=== PATIENT | female | born 1940 | race Caucasian/White ===

== ENCOUNTER 2022-04-20 08:30 | Observation (INO) | payer MEDICARE, OTHER ==
[~2022-04-20] VITALS: Ht 167.7 cm; Wt 83.6 kg
--- NOTE | 2022-04-20 08:54 | ED Dyspnea ---
General Chief Complaint: Respiratory Problems Stated Complaint: SOB Nursing Triage Note: PT AMB TO RM 5 PT CO OF SOA X1 WEEK, PT STATES WAS SEEN BY DR LAST WEEK AND DID NOT GET ANY BETTER.PT DENIES C/P, PT VERY ANXIOUS. PT STATES HAS HAD SWOLLEN FEET FOR APPROX 48 HOURS Source of Information: Patient, Family Exam Limitations: No Limitations History of Present Illness Date Seen by Provider: Apr 20, 2022 Time Seen by Provider: 08:40 Initial Comments 81-year-old female presents to the emergency department today for difficulty breathing. She states she was seen at the [facility] clinic about a week ago and recommended to come to the emergency department. She declined doing so at that time according to her daughter. She states she has had progressively worsening shortness of breath since that time. Also endorses some bilateral lower extremity edema which is worsening. She denies any cardiac or pulmonary history. Tells me she does not take medicines for high blood pressure high cholesterol diabetes. She has had a mild nonproductive cough. She specifically denies any chest pains. She has no abdominal pain or changes in bowel or bladder habits. She did receive her COVID vaccinations and denies any fevers or chills. Allergies and Home Medications Allergies Coded Allergies: No Known Drug Allergies (Unverified , 04/20/22) Patient Home Medication List Home Medication List Reviewed: Yes Dextromethorphan Hb/Doxylamine (Vicks Nyquil Cough Liquid) 15 Mg-6.25 Mg/15 Ml Solution, 30 ML PO Q6H PRN for COUGH, (Reported) Entered as Reported by: SURESH LYNCH on 04/20/221557 Last Action: Reviewed Ibuprofen (Advil) 200 Mg Capsule, 600-800 MG PO Q8H PRN for PAIN-MILD (1-4), (Reported) Entered as Reported by: SURESH LYNCH on 04/20/221557 Last Action: Reviewed [Balance Of Nature] , 1 EA PO DAILY, (Reported) Entered as Reported by: SURESH LYNCH on 04/20/221557 Last Action: Reviewed Discontinued Medications D-Methorphan/PE/Acetaminophen (Vicks Dayquil Liquid) 10 Mg-5 Mg-325 Mg/15 Ml Liquid, 236 ML PO, (Reported) Discontinued Reason: Duplicate Order Entered as Reported by: SURESH LYNCH on 04/20/221557 Last Action: Discontinued Dextromethorphan HBr (Vicks Dayquil Cough) 5 Mg/5 Ml Syrup, 5 MG PO, (Reported) Discontinued Reason: Duplicate Order Entered as Reported by: SURESH LYNCH on 04/20/221557 Last Action: Discontinued Review of Systems Review of Systems Constitutional: no symptoms reported EENTM: no symptoms reported Respiratory: cough, short of breath Cardiovascular: no symptoms reported Gastrointestinal: no symptoms reported Genitourinary: no symptoms reported Musculoskeletal: no symptoms reported Skin: no symptoms reported Psychiatric/Neurological: No Symptoms Reported Endocrine: No Symptoms Reported Hematologic/Lymphatic: No Symptoms Reported Past Lppazue-Vovzcq-Nshomh Hx Patient Social History Tobacco Use?: No Substance use?: No Alcohol Use?: Yes Alcohol type: Wine Alcohol Frequency: Rarely Pt feels they are or have been: No Immunizations Up To Date Influenza Vaccine Up-to-Date: No; Not Current First/Initial COVID19 Vaccinat: 2020 Second COVID19 Vaccination Jonathan: 2020 Past Medical History Surgery/Hospitalization HX: NONE, NO MED HX Family Medical History Reviewed Nursing Family Hx No Pertinent Family Hx Physical Exam Vital Signs Vital Signs - First Documented 04/20/22 08:30 Temp 35.4 Pulse 122 Resp 24 B/P (MAP) 160/105 (123) Pulse Ox 97 O2 Delivery Room Air Capillary Refill : Less Than 3 Seconds Height, Weight, BMI Height: '" Weight: lbs. oz. kg; 23.00 BMI Method: General Appearance: No Apparent Distress, Anxious HEENT: PERRL/EOMI, Normal ENT Inspection, Pharynx Normal Neck: Full Range of Motion, Normal Inspection, Non Tender, Supple Respiratory: Chest Non Tender, No Accessory Muscle Use, No Respiratory Distress, Other (Slight expiratory wheezing bilaterally.) Cardiovascular: No Murmur, Normal Peripheral Pulses, Tachycardia Gastrointestinal: Normal Bowel Sounds, No Organomegaly, No Pulsatile Mass, Non Tender, Soft Extremity: Normal Capillary Refill, Normal Range of Motion, No Calf Tenderness, Pedal Edema (2+ pitting edema bilateral lower extremities) Neurologic/Psychiatric: Alert, Oriented x3, No Motor/Sensory Deficits Skin: Normal Color, Warm/Dry Lymphatic: No Adenopathy Focused Exam Lactate Level 04/20/22 08:55: Lactic Acid Level 3.05*H Lactic Acid Level Laboratory Tests Test 04/20/22 08:55 Lactic Acid Level 3.05 MMOL/L (0.50-2.00) *H Progress/Results/Core Measures Results/Orders Lab Results Laboratory Tests Test 04/20/22 08:46 04/20/22 08:55 Range/Units White Blood Count 10.1 4.3-11.0 10^3/uL Red Blood Count 3.89 3.80-5.11 10^6/uL Hemoglobin 12.4 11.5-16.0 g/dL Hematocrit 39 35-52 % Mean Corpuscular Volume 100 H 80-99 fL Mean Corpuscular Hemoglobin 32 25-34 pg Mean Corpuscular Hemoglobin Concent 32 32-36 g/dL Red Cell Distribution Width 13.5 10.0-14.5 % Platelet Count 452 H 130-400 10^3/uL Mean Platelet Volume 9.8 9.0-12.2 fL Immature Granulocyte % (Auto) 0 % Neutrophils (%) (Auto) 62 42-75 % Lymphocytes (%) (Auto) 28 12-44 % Monocytes (%) (Auto) 6 0-12 % Eosinophils (%) (Auto) 3 0-10 % Basophils (%) (Auto) 1 0-10 % Neutrophils # (Auto) 6.3 1.8-7.8 10^3/uL Lymphocytes # (Auto) 2.8 1.0-4.0 10^3/uL Monocytes # (Auto) 0.6 0.0-1.0 10^3/uL Eosinophils # (Auto) 0.3 0.0-0.3 10^3/uL Basophils # (Auto) 0.1 0.0-0.1 10^3/uL Immature Granulocyte # (Auto) 0.0 0.0-0.1 10^3/uL Sodium Level 138 135-145 MMOL/L Potassium Level 3.8 3.6-5.0 MMOL/L Chloride Level 104 98-107 MMOL/L Carbon Dioxide Level 19 L 21-32 MMOL/L Anion Gap 15 H 5-14 MMOL/L Blood Urea Nitrogen 16 7-18 MG/DL Creatinine 1.08 0.60-1.30 MG/DL Estimat Glomerular Filtration Rate 51 BUN/Creatinine Ratio 15 Glucose Level 147 H 70-105 MG/DL Calcium Level 8.7 8.5-10.1 MG/DL Corrected Calcium 8.8 8.5-10.1 MG/DL Total Bilirubin 0.7 0.1-1.0 MG/DL Aspartate Amino Transf (AST/SGOT) 18 5-34 U/L Alanine Aminotransferase (ALT/SGPT) 16 0-55 U/L Alkaline Phosphatase 75 40-136 U/L Troponin I 0.034 H <0.028 NG/ML B-Type Natriuretic Peptide 2160.0 H <100.0 PG/ML Total Protein 7.8 6.4-8.2 GM/DL Albumin 3.9 3.2-4.5 GM/DL Procalcitonin 0.04 <0.10 NG/ML Influenza Type A (RT-PCR) Not Detected Not Detecte Influenza Type B (RT-PCR) Not Detected Not Detecte SARS-CoV-2 RNA (RT-PCR) Not Detected Not Detecte Lactic Acid Level 3.05 *H 0.50-2.00 MMOL/L Micro Results Microbiology 04/20/22 Blood Culture - Preliminary, Resulted No growth 04/20/22 Blood Culture - Preliminary, Resulted No growth My Orders Orders - EMILY SERRA DO Ekg-Prn For Chest Pain Or Rhyt (04/20/22 08:37) Comprehensive Metabolic Panel (04/20/22 08:49) Troponin I [place]son (04/20/22 08:49) Bnp [place] (04/20/22 08:49) Procalcitonin (Pct) (04/20/22 08:49) Lactic Acid Analyzer (04/20/22 08:49) Cbc With Automated Diff (04/20/22 08:49) Blood Culture (04/20/22 08:49) Chest 1 View, Ap/Pa Only (04/20/22 08:49) Ed Iv/Invasive Line Start (04/20/22 08:49) Covid 19 Inhouse Test (04/20/22 08:50) Influenza A And B By Pcr (04/20/22 08:50) Albuterol/Ipra Inhalation Soln (Duoneb I (04/20/22 09:15) Methylprednisolone Sod Succ (Solu-Medrol (04/20/22 09:15) Svn Small Volume Nebulizer (04/20/22 09:12) Azithromycin Injection (Zithromax Inject (04/20/22 09:30) Ceftriaxone 1 Gm Pre-Mix (Rocephin 1 Gm (04/20/22 09:30) Ed Admission (Communication) (04/20/22 10:22) Medications Given in ED Vital Signs/I&O 04/20/22 04/20/22 08:30 09:25 Temp 35.4 Pulse 122 Resp 24 B/P (MAP) 160/105 (123) Pulse Ox 97 96 O2 Delivery Room Air Room Air Blood Pressure Mean: 123 EKG : Comment Sinus tachycardia with rate of 117 bpm. Intervals. Left axis deviation. Right bundle branch block. No ST or T wave abnormalities. No ectopy. No STEMI. Critical Care Note Critical Care Total Time (minutes) 60 Departure Communication (Admissions) Patient is hemodynamically stable. She remains tachycardic during her stay but is normal to slightly hypertensive. Oxygen saturations are stable. She has what appears to be patchy infiltrate on the right side and some diffuse pulmonary edema bilaterally. I will give her IV Lasix, Zithromax and Rocephin to cover for kidney acquired pneumonia. Her BNP is significantly elevated, Pro- Ollie and white blood cell count are normal so I am leaning more towards edema at this time however her lactic acid is 3.04. When she is volume overloaded so I have given her any fluids. Her troponin is slightly elevated and she has left bundle branch block on her EKG. There is no EKG available for comparison at this time. We will go ahead and admit her to the hospital, Dr. Funes graciously excepts admission. I spoke with Dr. Solano who recommends IV Lasix twice daily, daily aspirin and Lovenox for DVT prophylaxis protocol. The patient is reluctant but agreeable to admission at this time Impression Primary Impression: Peripheral edema Additional Impressions: Elevated troponin I level Pulmonary edema Qualified Codes: J81.0 - Acute pulmonary edema Wheezing Disposition: ADMITTED INPATIENT Condition: Stable Admissions Decision to Admit Reason: Admit from ER (General) Departure-Patient Inst. Referrals: SURESH PATRICK DO (PCP/Family) Primary Care Physician EMILY SERRA DO Apr 20, 2022 08:54
[2022-04-20 09:02] LABS: ALBUMIN 3.9 GM/DL (3.2-4.5); BASOPHILS # (AUTO) 0.1 10^3/uL (0.0-0.1); BASOPHILS % (AUTO) 1 % (0-10); EOSINOPHILS # (AUTO) 0.3 10^3/uL (0.0-0.3); EOSINOPHILS % (AUTO) 3 % (0-10); HEMATOCRIT 39 % (35-52); HEMOGLOBIN 12.4 g/dL (11.5-16.0); LYMPHOCYTES # (AUTO) 2.8 10^3/uL (1.0-4.0); LYMPHOCYTES % (AUTO) 28 % (12-44); MEAN CORPUSCULAR HEMOGLOBIN 32 pg (25-34); MEAN CORPUSCULAR HGB CONC 32 g/dL (32-36); MEAN CORPUSCULAR VOLUME 100 fL (80-99); MEAN PLATELET VOLUME 9.8 fL (9.0-12.2); MONOCYTES # (AUTO) 0.6 10^3/uL (0.0-1.0); MONOCYTES % (AUTO) 6 % (0-12); NEUTROPHILS # (AUTO) 6.3 10^3/uL (1.8-7.8); NEUTROPHILS % (AUTO) 62 % (42-75); PLATELET COUNT 452 10^3/uL (130-400); WHITE BLOOD COUNT 10.1 10^3/uL (4.3-11.0)
[2022-04-20 09:03] LABS: POTASSIUM 3.8 MMOL/L (3.6-5.0)
[2022-04-20 09:04] LABS: CALCIUM 8.7 MG/DL (8.5-10.1)
[2022-04-20 09:05] LABS: TOTAL PROTEIN 7.8 GM/DL (6.4-8.2)
[2022-04-20 09:07] LABS: BILIRUBIN,TOTAL 0.7 MG/DL (0.1-1.0)
[2022-04-20 09:09] LABS: CREATININE SERUM 1.08 MG/DL (0.60-1.30)
--- NOTE | 2022-04-20 09:10 | Diagnostic Imaging Report ---
Indication: Shortness of breath x1 week Portable chest 8:50 AM There are some patchy alveolar infiltrates in both lungs. Heart appears mildly enlarged. Pulmonary vascularity is upper limits of normal. There are no effusions or pneumothoraces. IMPRESSION: Patchy alveolar infiltrates in lungs suspicious for pneumonia. There is mild underlying pulmonary venous congestion. Dictated by: Dictated on workstation # [id number]
[2022-04-20] MEDS ORDERED: methylPREDNISolone 125 MG (Solu-MEDROL) VIAL IVP ONE (09:15)
[2022-04-20] MEDS ORDERED: RT-ALBUTEROL/IPRATROPIUM 3 ML (DUONEB) VIAL INH ONE (09:15)
[2022-04-20] MEDS ORDERED: cefTRIAXone 1 GM PRE-MIX 50 ML IV ONE (09:30)
[2022-04-20] MEDS ORDERED: AZITHROMYCIN INJECTION 500 MG in NS (IVPB) 250 ML IV ONE (09:30)
[2022-04-20] MEDS ORDERED: FUROSEMIDE 40 MG/4 ML INJ (LASIX) IVP ONE (10:30)
[2022-04-20] MEDS ORDERED: ASPIRIN 81 MG CHEW (CHILDREN'S ASA) PO ONE (10:30)
[2022-04-20] MEDS ORDERED: ONDANSETRON 4 MG/2 ML (SDV) Z0FRAN IVP ONE (10:45)
[2022-04-20 11:30] VITALS: BP 130/83
[2022-04-20] MEDS ORDERED: ANTACID SUSP 30 ML UDC (MYLANTA) PO PRN (11:30)
[2022-04-20] MEDS ORDERED: morphine INJ 4 MG/ML 1 ML (VIAL/SYRINGE) IV PRN (11:30)
[2022-04-20] MEDS ORDERED: ACETAMINOPHEN 325 MG TABLET PO PRN (11:30)
[2022-04-20] MEDS ORDERED: LACTULOSE SYRUP 10GM/15ML (ENULOSE) 30ML UDC PO PRN (11:30)
[2022-04-20] MEDS ORDERED: MILK OF MAGNESIA 400 MG/5 ML 30 ML UDC PO PRN (11:30)
[2022-04-20] MEDS ORDERED: MELATONIN 3 MG TABLET PO PRN (11:30)
[2022-04-20] MEDS ORDERED: ONDANSETRON 4 MG/2 ML (SDV) Z0FRAN IV PRN (11:30)
[2022-04-20] MEDS ORDERED: diphenhydrAMINE 25 MG TAB (BENADRYL) PO PRN (11:30)
[2022-04-20] MEDS ORDERED: ENOXAPARIN 40 MG/0.4 ML (LOVENOX) SYR SC SCH (11:30)
[2022-04-20] MEDS ORDERED: polyethylene glycoL POWDER 17 GM (MIRALAX) PACK PO PRN (11:30)
[2022-04-20] MEDS ORDERED: diphenhydrAMINE 50 MG/ML INJ (BENADRYL) IVP PRN (11:30)
[2022-04-20] MEDS ORDERED: CALCIUM CARBONATE 500 MG (TUMS) TAB.CHEW PO PRN (11:30)
[2022-04-20] MEDS ORDERED: BISACODYL 10 MG SUPP (DULCOLAX) PR PRN (11:30)
[2022-04-20] MEDS ORDERED: AZITHROMYCIN INJECTION 500 MG in NS (IVPB) 250 ML IV NR (11:30)
[2022-04-20] MEDS ORDERED: ONDANSETRON 4 MG (ZOFRAN) ORAL DISSOLVE TAB PO PRN (11:30)
--- NOTE | 2022-04-20 11:31 | History & Physical-Hospitalist ---
[facility] 04/20/22 1131: History of Present Illness HPI/Chief Complaint Deann is an 81-year-old female who presented to the ED today with SOB for the past 1.5 weeks and worsening bilateral lower extremity edema for the past 2 days. Her SOB is aggravated by doing housework and is better with rest. Her SOB has not worsened but is not improving for the past 1.5 weeks which is why she decided to come to the ED today. Notes an unproductive cough for the past 2 weeks but otherwise feeling well without fevers. Her granddaughter was sick 2-3 weeks ago and then patient felt she caught the illness. She also complains of upper thoracic/lower cervical pain for the past year that comes and goes, gets to a 7.5/10 in severity. It does not radiate anywhere, specifically no pain in jaw or shoulders/arms. She is taking Aleve every day and using a heating pad to relieve the pain. She went to the [facility] on 04/13 for evaluation of SOB and back pain. They gave her muscle relaxers and ibuprofen and advised she get her "heart checked" at the ED. She did not go to the ED at that time. Notes she stopped taking the muscle relaxers as they made her feel bad and switched back to Aleve as ibuprofen was not working as well. Her only PMH is depression and anxiety that started after losing her daughter 3 years ago. There have been a lot of family stressors since. She is not currently taking any medications for this as she states she doesn't like "how they make her feel." She is accompanied by her granddaughter and great-granddaughter. 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 Today she reports feeling better than when she arrived and is still having intermittent SOB. She had nausea last night and today that was improved with Zofran today. Denies CP, vomiting, issues with urination. She has been more constipated recently though it was relieved by prune juice and she had a BM last night. Her granddaughter reports pt had "labored breathing" last night and this morning. CXR today with patchy alveolar infiltrates in lungs suspicious for pneumonia and mild underlying pulmonary venous congestion. EKG today with sinus tachycardia, left atrial enlargement, left bundle branch block. Labs notable for troponin of 0.034, BNP of 2160, lactic acid of 2.44, procalcitonin of 0.04. Source: patient, family (granddaughter) Exam Limitations: no limitations Date Seen 04/20/22 Time Seen by a Provider: 10:50 Attending Physician Wilmer Beach DO PCP Admitting Physician: Komal Mae DO Attending Physician: Komal Mae DO Referring Physician Date of Admission Apr 20, 2022 at 10:23 Home Medications & Allergies Home Medications Reviewed patient Home Medication Reconciliation performed by pharmacy medication reconciliations general service technician and/or nursing. Patients Allergies have been reviewed. 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) Tobacco Use?: No Substance use?: No Alcohol Use?: Yes Alcohol type: Wine Alcohol Frequency: Rarely Pt feels they are or have been: No Immunizations Up To Date First/Initial COVID19 Vaccinat: 2020 Second COVID19 Vaccination Jonathan: 2020 Current Status Advance Directives: No Communicates: Verbally Primary Language: [place] Citizen Preferred Spoken Language: [place] Citizen Is interpretation needed?: No Implanted or Applied Medical D: None Past Medical History Anxiety, Depression Family Medical History Reviewed Nursing Family Hx No Pertinent Family Hx, Other Conditions/Hx (father-alcoholism, brother- diabetes) Review of Systems Constitutional: No chills, No fever EENTM: no symptoms reported Respiratory: cough (nonproductive), dyspnea on exertion, short of breath Cardiovascular: No chest pain; edema (b/l lower extremities) Gastrointestinal: No abdominal pain; constipation, nausea; No vomiting Genitourinary: No decreased output, No dysuria, No hematuria Musculoskeletal: back pain (upper thoracic), neck pain Skin: No lesions, No rash Psychiatric/Neurological: Anxiety, Depressed All Other Systems Reviewed Negative Unless Noted: Yes (Negative excepted noted.) Physical Exam Physical Exam Vital Signs Vital Signs - First Documented 04/20/22 08:30 Temp 35.4 Pulse 122 Resp 24 B/P (MAP) 160/105 (123) Pulse Ox 97 O2 Delivery Room Air Capillary Refill : Less Than 3 Seconds Height, Weight, BMI Height: '" Weight: lbs. oz. kg; 23.00 BMI Method: General Appearance: WD/WN, Anxious HEENT: PERRL/EOMI, Pharynx Normal, Moist Mucous Membranes Neck: Full Range of Motion, Normal Inspection, Non Tender, Supple Respiratory: Chest Non Tender, Lungs Clear, Normal Breath Sounds, No Accessory Muscle Use, No Respiratory Distress Cardiovascular: Regular Rate, Rhythm, No Edema, No Gallop, No JVD, Normal Peripheral Pulses Gastrointestinal: Normal Bowel Sounds, Non Tender, Soft Back: Normal Inspection, No CVA Tenderness, No Vertebral Tenderness Extremity: Normal Capillary Refill, Normal Range of Motion, Non Tender, No Calf Tenderness, Pedal Edema, Swelling (2+ pitting edema of b/l lower extremities) Neurologic/Psychiatric: Alert, Oriented x3, No Motor/Sensory Deficits, Depressed Affect, Other (tearful) Skin: Normal Color, Warm/Dry Results Results/Procedures Labs Laboratory Tests 04/20/22 08:46 Patient resulted labs reviewed. Imaging Date of Exam:04/20/22 CHEST 1 VIEW, AP/PA ONLY Indication: Shortness of breath x1 week Portable chest 8:50 AM There are some patchy alveolar infiltrates in both lungs. Heart appears mildly enlarged. Pulmonary vascularity is upper limits of normal. There are no effusions or pneumothoraces. IMPRESSION: Patchy alveolar infiltrates in lungs suspicious for pneumonia. There is mild underlying pulmonary venous congestion. Assessment/Plan Admission Diagnosis Sepsis pneumonia Admission Status: Inpatient Order (span 2 midnights) Reason for Inpatient Admission: Need IV abx and lasix Assessment and Plan Assessment: Sepsis pneumonia New onset CHF Left bundle branch block Tachycardia b/l Lower extremity edema Elevated troponin Lactic acidosis Elevated BNP Mild thrombocytosis Depression Anxiety Plan: IV abx Lasix No IV fluids at this time given apparent volume overload status Cardiology appreciated Admit to med surg Supportive care Clinical Quality Measures AMI/AHF: ASA po Prior to arrival: KOMAL Dickinson DO 04/20/222044: History of Present Illness Source: patient Exam Limitations: clinical condition Physical Exam Physical Exam General Appearance: No Apparent Distress, Chronically ill Respiratory: Accessory Muscle Use, Decreased Breath Sounds Cardiovascular: Regular Rate, Rhythm, Tachycardia Assessment/Plan Admission Diagnosis New onset CHF due to systolic dysfunction suspicious for ischemic cardiomyopathy Pulmonary edema/volume overload Severe mitral valve regurgitation Acute resp failure Pulmonary HTN Bronchitis No evidence of sepsis Admission Status: Observation Diagnosis/Problems Diagnosis/Problems (1) Pulmonary edema (2) Peripheral edema (3) Elevated troponin I level (4) Wheezing Supervisory-Addendum Brief Verification & Attestation Participated in pt care: history, MDM, physical Personally performed: exam, history, MDM, supervision of care Care discussed with: Medical Student Procedures: n/a Results interpretation: Verified all documentation Verification and Attestation of Medical Student E/M Service A medical student performed and documented this service in my presence. I reviewed and verified all information documented by the medical student and made modifications to such information, when appropriate. I personally performed the physical exam and medical decision making. Komal Mae Apr 20, 2022,20:42 SHAHAB RICHARDSON Apr 20, 2022 11:31 KOMAL MAE DO Apr 20, 2022 20:45
--- NOTE | 2022-04-20 12:17 | Consultation-Cardiology ---
HPI-Cardiology Cardiology Consultation Date of Consultation 04/20/22 Date of Admission Time Seen by Provider: 12:12 Indication: Congestive heart failure HPI 81-year-old lady with no significant past cardiac history. Patient has been having increasing fatigue, shortness of breath and pedal edema which became more significant. Patient came into the emergency room and she was admitted due to congestive heart failure and pneumonia. Did not report any fever or chills but has been having increasing fatigue and loss of energy. Patient was seen at [facility] earlier last week for her increasing dyspnea and she was started on muscle relaxant. She has underlying anxiety and depression otherwise no known previous cardiac history. Home Medications & Allergies Allergies: Coded Allergies: No Known Drug Allergies (Unverified , 04/20/22) Home Medication List Reviewed: Yes LBP-Mvptvm-Mpezua Hx Patient Social History Marital Status: Employed/Student: retired Have you traveled recently?: No Alcohol Use?: Yes Past Medical History Discussed below Family Medical History Significant Family History: No Pertinent Family Hx Review of Systems-General Review of Systems Constitutional: no symptoms reported, malaise, weakness EENTM: no symptoms reported Respiratory: see HPI, cough, dyspnea on exertion; No hemoptysis, No orthopnea, No phlegm; short of breath; No stridor, No wheezing, No other Cardiovascular: see HPI; No chest pain; edema; No Hx of Intervention, No palpitations, No syncope, No vascular heart diseas, No other Gastrointestinal: no symptoms reported, see HPI Genitourinary: no symptoms reported, see HPI Musculoskeletal: see HPI, back pain, joint pain Skin: no symptoms reported, see HPI Psychiatric/Neurological: No Symptoms Reported, See HPI Reviewed Test Results Reviewed Test Results Lab Laboratory Tests Test 04/20/22 08:46 04/20/22 08:55 04/20/22 10:45 Range/Units White Blood Count 10.1 4.3-11.0 10^3/uL Red Blood Count 3.89 3.80-5.11 10^6/uL Hemoglobin 12.4 11.5-16.0 g/dL Hematocrit 39 35-52 % Mean Corpuscular Volume 100 H 80-99 fL Mean Corpuscular Hemoglobin 32 25-34 pg Mean Corpuscular Hemoglobin Concent 32 32-36 g/dL Red Cell Distribution Width 13.5 10.0-14.5 % Platelet Count 452 H 130-400 10^3/uL Mean Platelet Volume 9.8 9.0-12.2 fL Immature Granulocyte % (Auto) 0 % Neutrophils (%) (Auto) 62 42-75 % Lymphocytes (%) (Auto) 28 12-44 % Monocytes (%) (Auto) 6 0-12 % Eosinophils (%) (Auto) 3 0-10 % Basophils (%) (Auto) 1 0-10 % Neutrophils # (Auto) 6.3 1.8-7.8 10^3/uL Lymphocytes # (Auto) 2.8 1.0-4.0 10^3/uL Monocytes # (Auto) 0.6 0.0-1.0 10^3/uL Eosinophils # (Auto) 0.3 0.0-0.3 10^3/uL Basophils # (Auto) 0.1 0.0-0.1 10^3/uL Immature Granulocyte # (Auto) 0.0 0.0-0.1 10^3/uL Sodium Level 138 135-145 MMOL/L Potassium Level 3.8 3.6-5.0 MMOL/L Chloride Level 104 98-107 MMOL/L Carbon Dioxide Level 19 L 21-32 MMOL/L Anion Gap 15 H 5-14 MMOL/L Blood Urea Nitrogen 16 7-18 MG/DL Creatinine 1.08 0.60-1.30 MG/DL Estimat Glomerular Filtration Rate 51 BUN/Creatinine Ratio 15 Glucose Level 147 H 70-105 MG/DL Calcium Level 8.7 8.5-10.1 MG/DL Corrected Calcium 8.8 8.5-10.1 MG/DL Total Bilirubin 0.7 0.1-1.0 MG/DL Aspartate Amino Transf (AST/SGOT) 18 5-34 U/L Alanine Aminotransferase (ALT/SGPT) 16 0-55 U/L Alkaline Phosphatase 75 40-136 U/L Troponin I 0.034 H <0.028 NG/ML B-Type Natriuretic Peptide 2160.0 H <100.0 PG/ML Total Protein 7.8 6.4-8.2 GM/DL Albumin 3.9 3.2-4.5 GM/DL Procalcitonin 0.04 <0.10 NG/ML Influenza Type A (RT-PCR) Not Detected Not Detecte Influenza Type B (RT-PCR) Not Detected Not Detecte SARS-CoV-2 RNA (RT-PCR) Not Detected Not Detecte Lactic Acid Level 3.05 *H 2.44 *H 0.50-2.00 MMOL/L Physical Exam Physical Exam Vital Signs Vital Signs - First Documented 04/20/22 08:30 Temp 35.4 Pulse 122 Resp 24 B/P (MAP) 160/105 (123) Pulse Ox 97 O2 Delivery Room Air Capillary Refill : Less Than 3 Seconds Height, Weight, BMI Height: '" Weight: lbs. oz. kg; 23.00 BMI Method: General Appearance: No Apparent Distress, Anxious HEENT: PERRL/EOMI, Normal ENT Inspection, Pharynx Normal Neck: Full Range of Motion, Normal Inspection, Non Tender, Supple Respiratory: Chest Non Tender, No Accessory Muscle Use, No Respiratory Distress, Other (Slight expiratory wheezing bilaterally.) Cardiovascular: Normal Peripheral Pulses, Systolic Murmur (At the left sternal border), Gallop/S3, Tachycardia Gastrointestinal: Normal Bowel Sounds, No Organomegaly, No Pulsatile Mass, Non Tender, Soft Extremity: Normal Capillary Refill, Normal Range of Motion, No Calf Tenderness, Pedal Edema (2+ pitting edema bilateral lower extremities) Neurologic/Psychiatric: Alert, Oriented x3, No Motor/Sensory Deficits Skin: Normal Color, Warm/Dry Lymphatic: No Adenopathy A/P-Cardiology Admission Diagnosis Congestive heart failure, acute left ventricular systolic dysfunction, unknown etiology Pneumonia Lactic acidosis Hypertension Assessment/Plan Congestive heart failure, acute left ventricular systolic dysfunction, unknown etiology, dilated cardiomyopathy Patient was admitted and started on aggressive diuretics. Evaluate 2D echo Started on Lovenox. Work-up is in progress Pneumonia, started on antibiotics. Managed by medical team. We will continue to monitor Hypertension, monitor blood pressure Lactic acidosis. Probably secondary to sepsis and hypoxemia. Managed by medical team Degenerative joint disease. Clinical Quality Measures AMI/AHF: ASA po Prior to arrival: No SERENA FLORES MD Apr 20, 2022 12:17
[2022-04-20 12:38] VITALS: BP 130/83
[2022-04-20] MEDS ORDERED: RT-ALBUTEROL SULF 2.5 MG/3 ML PRE-MIX VIAL INH PRN (12:45)
[2022-04-20] MEDS: ENOXAPARIN 40 MG/0.4 ML (LOVENOX) SYR SQ SCH (13:39)
[2022-04-20 15:52] VITALS: BP 132/62
[2022-04-20] MEDS ORDERED: DEXT5SYR PO (15:58)
[2022-04-20] MEDS ORDERED: DEXT236S PO (15:58)
[2022-04-20] MEDS ORDERED: IBUP200C11 PO (15:58)
[2022-04-20] MEDS ORDERED: BALANCE OF NATURE PO (15:58)
[2022-04-20] MEDS ORDERED: D ME PO (15:58)
[2022-04-20] MEDS ORDERED: FUROSEMIDE 40 MG/4 ML INJ (LASIX) IVP SCH (17:00)
[2022-04-20] MEDS: FUROSEMIDE 40 MG/4 ML INJ (LASIX) IVP SCH (17:48)
[2022-04-20] MEDS: BENZONATATE 100 MG (TESSALON) CAPSULE PO PRN ×2 (17:51→21:11)
[2022-04-20 19:20] VITALS: BP 109/60
[2022-04-20] MEDS: SENNOSIDES 8.6 MG (SENOKOT) TAB PO SCH (19:37)
[2022-04-20] MEDS: DOCUSATE SODIUM 100 MG (COLACE) CAP PO SCH (19:37)
[2022-04-20] MEDS: ALPRAZolam 0.25 MG (XANAX) TAB PO PRN (22:55)
[2022-04-20 23:42] VITALS: BP 128/66
[2022-04-21] VITALS (8 sets, daily range): BP systolic 111–130; BP diastolic 59–86
[2022-04-21 05:27] LABS: BASOPHILS % (AUTO) 0 % (0-10); EOSINOPHILS % (AUTO) 0 % (0-10); HEMATOCRIT 34 % (35-52); HEMOGLOBIN 10.9 g/dL (11.5-16.0); LYMPHOCYTES # (AUTO) 1.1 10^3/uL (1.0-4.0); LYMPHOCYTES % (AUTO) 11 % (12-44); MEAN CORPUSCULAR HEMOGLOBIN 31 pg (25-34); MEAN CORPUSCULAR HGB CONC 32 g/dL (32-36); MEAN CORPUSCULAR VOLUME 97 fL (80-99); MEAN PLATELET VOLUME 9.8 fL (9.0-12.2); MONOCYTES # (AUTO) 0.2 10^3/uL (0.0-1.0); MONOCYTES % (AUTO) 3 % (0-12); NEUTROPHILS # (AUTO) 8.4 10^3/uL (1.8-7.8); NEUTROPHILS % (AUTO) 86 % (42-75); PLATELET COUNT 375 10^3/uL (130-400); WHITE BLOOD COUNT 9.7 10^3/uL (4.3-11.0)
[2022-04-21 05:42] LABS: ALBUMIN 3.6 GM/DL (3.2-4.5)
[2022-04-21 05:43] LABS: CALCIUM 8.5 MG/DL (8.5-10.1)
[2022-04-21 05:45] LABS: TOTAL PROTEIN 7.2 GM/DL (6.4-8.2)
[2022-04-21 05:47] LABS: BILIRUBIN,TOTAL 0.5 MG/DL (0.1-1.0)
[2022-04-21 05:48] LABS: CREATININE SERUM 1.14 MG/DL (0.60-1.30)
[2022-04-21] MEDS: FUROSEMIDE 40 MG/4 ML INJ (LASIX) IVP SCH ×2 (06:31→17:43)
[2022-04-21] MEDS: ASPIRIN 81 MG CHEW (CHILDREN'S ASA) PO SCH (08:29)
[2022-04-21] MEDS: PANTOPRAZOLE 40 MG (PROTONIX) TAB PO SCH (08:29)
[2022-04-21] MEDS: DOCUSATE SODIUM 100 MG (COLACE) CAP PO SCH ×2 (08:29→19:16)
[2022-04-21] MEDS: BENZONATATE 100 MG (TESSALON) CAPSULE PO PRN (08:29)
[2022-04-21] MEDS: SENNOSIDES 8.6 MG (SENOKOT) TAB PO SCH ×2 (08:29→19:16)
[2022-04-21] MEDS: AZITHROMYCIN 250 MG TAB (ZITHROMAX) PO SCH (08:29)
[2022-04-21] MEDS ORDERED: cefTRIAXone 1 GM PRE-MIX 50 ML IV SCH (09:00)
[2022-04-21] MEDS ORDERED: ASPIRIN E.C. 81 MG (ECOTRIN) TAB PO SCH (09:00)
--- NOTE | 2022-04-21 09:49 | Cardiology Progress Note ---
Subjective Date Seen by Provider: Apr 21, 2022 Time Seen by Provider: 08:10 Subjective/Events-last exam Patient sitting up in bed, tearful this morning. Reports has had ongoing depression since of her daughter 3 years ago. Denies any chest pain, reports dyspnea improving. Focused Exam Lactate Level 04/20/22 08:55: Lactic Acid Level 3.05*H 04/20/22 10:45: Lactic Acid Level 2.44*H Objective-Cardiology Exam Last Set of Vital Signs Vital Signs 04/21/22 15:25 Temp 36.4 Pulse 99 Resp 18 B/P (MAP) 123/63 (83) Pulse Ox 93 O2 Delivery Nasal Cannula O2 Flow Rate 2.00 I&O Intake and Output 04/21/22 00:00 Intake Total 1010 ml Balance 1010 ml Intake Oral 960 ml IV Total 50 ml # Voids 11 Daily Weight Change No General: Alert, Oriented X3, Cooperative HEENT: Atraumatic Lungs: Clear to Auscultation Heart: Regular Rate Abdomen: Soft Extremities: Other (BLE edema +1) Psych/Mental Status: Other (depressed, tearful ) Results Lab Laboratory Tests 04/21/22 05:12 A/P-Cardiology Admission Diagnosis Congestive heart failure, acute left ventricular systolic dysfunction, unknown etiology Pneumonia Lactic acidosis Hypertension Assessment/Plan Congestive heart failure, acute left ventricular systolic dysfunction, unknown etiology, dilated cardiomyopathy Patient was admitted and started on aggressive diuretics. 2D echo done showing diffuse hypokinesia, EF 30-35%. Mildly dilated LA, moderate to severe MR, severe TR, moderate pulmonary regurgitation, PA 50-55mmHg. Questionable Takotsubo cardiomyopathy Elevated troponin, started on Lovenox. Continue to diurese. I will add Entresto, beta jian. Will plan for cardiac catheterization in the morning Pneumonia, started on antibiotics. Managed by medical team. We will continue to monitor Hypertension, monitor blood pressure Lactic acidosis. Probably secondary to sepsis and hypoxemia. Managed by medical team Degenerative joint disease. Depression, patient reports she has been struggling with depression since the of her daughter 3 years ago. Reports has had worsening depression recently. Agreeable to starting medication. Will defer to medical services. Supervisory-Addendum Brief Supervisory Addendum Participated in pt care: history, MDM, physical Personally performed: exam, history, MDM Care discussed with: RINKU Results interpretation: Verified all documentation Notes: Patient was seen and evaluated with Roro, examination performed, management plan was discussed, agree with the current scribed note, I made few changes to the note using Italic font Patient was seen at bedside laying down comfortably, feeling better Discussed the management plan, will continue maximizing medical therapy and planning to proceed with cardiac catheterization possible PTCA Monitor blood pressure and lipids Monitor electrolytes RORO EDWARDS Apr 21, 2022 09:48 SERENA FLORES MD Apr 21, 2022 17:00
[2022-04-21] MEDS: ENOXAPARIN 40 MG/0.4 ML (LOVENOX) SYR SQ SCH (11:17)
--- NOTE | 2022-04-21 11:58 | Progress Note - Hospitalist ---
[facility] 04/21/22 1158: Subjective HPI/CC On Admission Date Seen by Provider: Apr 21, 2022 Time Seen by Provider: 10:15 Subjective/Events-last exam Deann is an 81-year-old female with new onset CHF due to systolic dysfunction suspicious for ischemic cardiomyopathy. Dr. Solano is seeing the patient and started her on aggressive diuretics and Lovenox as well as adding beta jian. 2D echo done showing diffuse hypokinesia, EF 30-35%. Mildly dilated LA, moderate to severe MR, severe TR, moderate pulmonary regurgitation, PA 50-55mmHg. He plans to do a stress test in the future. Her PCP is Dr. Wilmer Beach. Today she reports improvement in her SOB. Her neck/shoulder pain is at a 3/10 today and she requests Tylenol. Denies nausea, vomiting. She has been urinating more frequently as expected with diuretics. Reports having a cough productive of clear phlegm today. Denies fever, chils, sore throat. She is struggling with depression and is tearful during today's encounter. Review of Systems General: No Chills HEENT: No Head Aches, No Sore Throat Pulmonary: Dyspnea, Cough Cardiovascular: No: Chest Pain Gastrointestinal: No: Nausea, Vomiting Genitourinary: No Dysuria; Frequency Musculoskeletal: neck pain, shoulder pain Focused Exam Lactate Level 04/20/22 08:55: Lactic Acid Level 3.05*H 04/20/22 10:45: Lactic Acid Level 2.44*H Objective Exam Vital Signs Vital Signs Date Time Temp Pulse Resp B/P (MAP) Pulse Ox O2 Delivery O2 Flow Rate FiO2 04/21/22 11:16 37.1 58 18 111/59 (76) 93 Nasal Cannula 2.00 Capillary Refill : Less Than 3 Seconds General Appearance: WD/WN, Anxious, Other (tearful) HEENT: PERRL/EOMI, Pharynx Normal Respiratory: Chest Non Tender, Lungs Clear, Normal Breath Sounds, No Accessory Muscle Use, No Respiratory Distress Cardiovascular: Normal Peripheral Pulses, Tachycardia Gastrointestinal: Normal Bowel Sounds, Non Tender, Soft Extremity: Normal Capillary Refill, Normal Range of Motion, Non Tender, No Calf Tenderness, Pedal Edema, Swelling (1+ edema of b/l lower extremities) Neurologic/Psychiatric: Alert, Oriented x3, Depressed Affect Skin: Normal Color, Warm/Dry Results/Procedures Lab Laboratory Tests 04/21/22 05:12 Patient resulted labs reviewed. Assessment/Plan Assessment and Plan Assess & Plan/Chief Complaint Assessment: New onset CHF due to systolic dysfunction suspicious for ischemic cardiomyopathy Pulmonary edema/volume overload Severe mitral valve regurgitation Acute resp failure Pulmonary HTN Bronchitis No evidence of sepsis Depression Anxiety Plan: Antitussives and duoneb Lasix Cardiology appreciated, likely plan stress test No IV fluids at this time given volume overload status Supportive care Clinical Quality Measures AMI/AHF: ASA po Prior to arrival: KOMAL Dickinson DO 04/22/22 0503: Subjective Review of Systems Pulmonary: Dyspnea Objective Exam General Appearance: Anxious, Chronically ill Respiratory: Lungs Clear, Normal Breath Sounds Cardiovascular: Tachycardia Supervisory-Addendum Brief Verification & Attestation Participated in pt care: history, MDM, physical Personally performed: exam, history, MDM, supervision of care Care discussed with: Medical Student Procedures: n/a Results interpretation: Verified all documentation Verification and Attestation of Medical Student E/M Service A medical student performed and documented this service in my presence. I reviewed and verified all information documented by the medical student and made modifications to such information, when appropriate. I personally performed the physical exam and medical decision making. Komal Mae Apr 22, 2022,05:02 SHAHAB RICHARDSON Apr 21, 2022 11:58 KOMAL MAE DO Apr 22, 2022 05:03
[2022-04-22] VITALS (16 sets, daily range): BP systolic 89–122; BP diastolic 17–74
[2022-04-22] MEDS: ALPRAZolam 0.25 MG (XANAX) TAB PO PRN ×2 (00:37→14:32)
[2022-04-22] MEDS: FUROSEMIDE 40 MG/4 ML INJ (LASIX) IVP SCH (06:35)
[2022-04-22] MEDS ORDERED: LIDOCAINE 1% INJ 30 ML (XYLOCAINE) VIAL ONE (06:48)
[2022-04-22] MEDS ORDERED: HEParin (CATH LAB) 2,000 ML IV ONE (06:48)
[2022-04-22 06:56] LABS: BASOPHILS # (AUTO) 0.1 10^3/uL (0.0-0.1); BASOPHILS % (AUTO) 1 % (0-10); EOSINOPHILS # (AUTO) 0.3 10^3/uL (0.0-0.3); EOSINOPHILS % (AUTO) 2 % (0-10); HEMATOCRIT 36 % (35-52); HEMOGLOBIN 11.3 g/dL (11.5-16.0); LYMPHOCYTES # (AUTO) 3.9 10^3/uL (1.0-4.0); LYMPHOCYTES % (AUTO) 32 % (12-44); MEAN CORPUSCULAR HEMOGLOBIN 31 pg (25-34); MEAN CORPUSCULAR HGB CONC 31 g/dL (32-36); MEAN CORPUSCULAR VOLUME 99 fL (80-99); MEAN PLATELET VOLUME 9.9 fL (9.0-12.2); MONOCYTES # (AUTO) 0.6 10^3/uL (0.0-1.0); MONOCYTES % (AUTO) 5 % (0-12); NEUTROPHILS # (AUTO) 7.5 10^3/uL (1.8-7.8); NEUTROPHILS % (AUTO) 60 % (42-75); PLATELET COUNT 450 10^3/uL (130-400); WHITE BLOOD COUNT 12.5 10^3/uL (4.3-11.0)
[2022-04-22 07:32] LABS: ALBUMIN 3.5 GM/DL (3.2-4.5); BILIRUBIN,TOTAL 0.4 MG/DL (0.1-1.0); CALCIUM 8.5 MG/DL (8.5-10.1); CREATININE SERUM 1.35 MG/DL (0.60-1.30); POTASSIUM 3.9 MMOL/L (3.6-5.0); TOTAL PROTEIN 6.9 GM/DL (6.4-8.2)
[2022-04-22] MEDS ORDERED: fentaNYL INJ 100 MCG/2 ML AMP ONE (08:21)
[2022-04-22] MEDS ORDERED: MIDAZOLAM 5 MG/5 ML (VERSED) VIAL ONE (08:21)
[2022-04-22] MEDS ORDERED: HEParin 1000 UNIT/ML (10ML VIAL) FOR BOLUS ONE (08:25)
[2022-04-22] MEDS ORDERED: VERAPAMIL 5 MG/2 ML (CALAN) VIAL IV ONE (08:25)
[2022-04-22] MEDS ORDERED: NS IV 1000 ML 1,000 ML ONE (08:26)
[2022-04-22] MEDS ORDERED: NITRO DRIP 25000 MCG/D5W 250 ML IV ONE (08:26)
--- NOTE | 2022-04-22 08:40 | Cardiac Procedure Note-CS/ASA ---
Pre-Procedure Note Pre-Op Procedure Note Date of Available H&P: Apr 22, 2022 Date H&P Reviewed: Apr 22, 2022 Time H&P Reviewed: 08:00 History & Physical: H&P Reviewed, Patient Examed, No changes noted Pre-Operative Diagnosis: CHF Conscious Sedation Pre-Proced Time 08:00 ASA Score 3 For ASA 3 and 4: Consider anesthesia and medical clearance. Also, for patients with a history of failed moderate sedation consider anesthesia. Airway Lungs Heart ASA score ASA 1: a normal healthy patient ASA 2: a patient with a mild systemic disease (mid diabetes, controlled hypertension, obesity ASA 3: a patient with a severe systemic disease that limits activity (angina, COPD, prior Myocardial infarction) ASA 4: a patient with an incapacitating disease that is a constant threat to life (CHF, renal failure) ASA 5: a moribund patient not expected to survive 24 hrs. (ruptured aneurysm) ASA 6: a declared brain- patient whose organs are being harvested. For emergent operations, add the letter E after the classification Mallampati Classification Grade 3 Sedation Plan Analgesia, Amnesia, Plan communicated to team members, Discussed options with patient/fam, Discussed risks with patient/fam The patient is an appropriate candidate to undergo the planned procedure, sedation, and anesthesia. The patient immediately re-assessed prior to indication. SERENA FLORES MD Apr 22, 2022 08:40
[2022-04-22] MEDS ORDERED: NS IV 1000 ML 1,000 ML IV SCH (09:15)
--- NOTE | 2022-04-22 09:17 | Cardiac Cath Report ---
Cardiac Cath Report Physician (s)/Aluminum Welder (s) Physician SERENA FLORES MD Pre-Procedure Diagnosis Pre-Procedure Diagnosis: CHF Post-Procedure Note Procedure Start Date: Apr 22, 2022 Name of Procedure: Left heart catheterization Aortic arch angiogram Findings/Procedure Note PROCEDURE NOTE: 81-year-old lady admitted with congestive heart failure acute left ventricular systolic dysfunction, had mild elevation in troponin, recommended cardiac catheterization possible PTCA. After explaining the procedure to the patient, all pros and cons were explained, all questions were answered. The patient signed the consent and then she was placed in the cardiac catheterization laboratory. Groin was prepped in SL fashion local anesthesia was used. Sheath placed in the right radial artery, [place] catheter was advanced to the left ventricular cavity, pressure was measured, pullback LV to aorta was done. Engaged the right and left coronary system, angiogram was done then I pulled the catheter back to the aortic arch and evaluated the aortic arch angiogram due to the tortuosity in the brachioc ephalic artery and the fact that patient will need evaluation for bypass surgery At the end of the procedure the sheath was removed. Vascular band was used FINDINGS: Hemodynamics LV 115/41, end-diastolic pressure of 41 Aorta 110/75 mean of 75 ANATOMY: Left Main has ostial 70% stenosis, dampening of the pressure after engaging the left main, distally there is a 50% stenosis Left Anterior Descending tortuous artery with total occlusion in the mid LAD reconstructed by collaterals. Left Circumflex moderate in size with 20 to 30% stenosis nonobstructive disease Right Coronary Artery is smaller artery, dominant artery, 80% ostial stenosis, total occlusion at the midportion reconstructed by collaterals from the right and left system, dominant right coronary artery LV Gram was not done, pressure was measured Aorta evaluation done with aortic arch angiogram showing slightly prominent aortic arch, heavy calcification in the arch. No dissection or aneurysm. Tortuous and calcified brachiocephalic artery, left carotid and left subclavian did not show significant abnormality CONCLUSION: 1. Ostial left main coronary artery stenosis and distal left main 2. Total occlusion in the mid LAD reconstructed by collaterals 3. Severe ostial right coronary artery and total occlusion in the mid right coronary artery reconstructed by collaterals, dominant right coronary artery 4. Congestive heart failure, acute left ventricular systolic dysfunction, ischemic cardiomyopathy ejection fraction 30 to 35% by echo. Elevated left ventricular end-diastolic pressure 5. Slightly prominent aortic arch with calcification. DISCUSSION AND RECOMMENDATION: Hospital course: Patient was started on Coreg, Entresto, Jardiance, continue with Lasix and arrangement to transfer the patient for evaluation for bypass surgery. Anesthesia Type: Conscious Sedation Estimated blood loss (mL): 15 ml Contrast Amount: 36 ml Total Radiation Dose: 400 mGy Post-Procedure Diagnosis Post-operative diagnosis: Final diagnoses Congestive heart failure, acute left ventricular systolic dysfunction, ischemic cardiomyopathy Coronary artery disease Non-ST elevation myocardial infarction Hypertension Hyperlipidemia SERENA FLORES MD Apr 22, 2022 09:17
[2022-04-22] MEDS ORDERED: EMPAGLIFLOZIN 10 MG TABLET (JARDIANCE) PO SCH (09:30)
[2022-04-22] MEDS ORDERED: SACUBITRIL/VALSARTAN 24/26 MG (ENTRESTO) TABLET PO SCH (09:30)
[2022-04-22] MEDS: DOCUSATE SODIUM 100 MG (COLACE) CAP PO SCH (09:55)
[2022-04-22] MEDS: SENNOSIDES 8.6 MG (SENOKOT) TAB PO SCH (09:55)
--- NOTE | 2022-04-22 10:00 | Cardiology Progress Note ---
Subjective Date Seen by Provider: Apr 22, 2022 Time Seen by Provider: 09:59 Subjective/Events-last exam Patient was seen at bedside, laying down comfortably, feeling better. Review of Systems General: No Chills, No Night Sweats; Fatigue; No Malaise, No Appetite, No Other HEENT: No Head Aches, No Visual Changes, No Eye Pain, No Ear Pain, No Dysphasia, No Sinus Congestion, No Post Nasal Drip, No Sore Throat, No Other Pulmonary: Dyspnea; No Cough, No Pleuritic Chest Pain, No Other Cardiovascular: No: Chest Pain, Palpitations, Orthopnea, Paroxysmal Noc. Dyspnea, Edema, Lt Headedness, Other Focused Exam Lactate Level 04/20/22 08:55: Lactic Acid Level 3.05*H 04/20/22 10:45: Lactic Acid Level 2.44*H Objective-Cardiology Exam Last Set of Vital Signs Vital Signs 04/22/22 04/22/22 04/22/22 07:43 08:56 09:35 Temp 36.2 Pulse 68 Resp 18 B/P (MAP) 122/74 (90) Pulse Ox 91 O2 Delivery Room Air O2 Flow Rate 2.00 I&O Intake and Output 04/22/22 00:00 Intake Total 1820 ml Output Total 1300 ml Balance 520 ml Intake Oral 1820 ml Output Urine Total 1300 ml # Voids 6 General: Alert, Oriented X3, Cooperative HEENT: Atraumatic Lungs: Clear to Auscultation Heart: Regular Rate, Normal S1, Normal S2 Abdomen: Soft Extremities: Other (BLE edema +1) Skin: No Rashes Neuro: Normal Speech Psych/Mental Status: Mental Status NL, Other (depressed, tearful ) Results Lab Laboratory Tests 04/22/22 06:05 A/P-Cardiology Admission Diagnosis Congestive heart failure, acute left ventricular systolic dysfunction, unknown etiology Pneumonia Lactic acidosis Hypertension Assessment/Plan Congestive heart failure, acute left ventricular systolic dysfunction, dilated cardiomyopathy, ischemic. Patient was admitted and started on aggressive diuretics. 2D echo done showing diffuse hypokinesia, EF 30-35%. Mildly dilated LA, moderate to severe MR, severe TR, moderate pulmonary regurgitation, PA 50-55mmHg. Responding to aggressive diuresis Coronary artery disease, cardiac catheterization was carried out on April 22, 2022 showing total occlusion of the mid LAD reconstructed by collaterals, total occlusion at the mid right coronary artery reconstructed by collaterals, severe ostial left main and ostial right coronary artery stenosis. Arrangement to transfer the patient to [facility] for evaluation for CABG was made. Discussed the management plan with Dr. Funes Pneumonia, started on antibiotics. Managed by medical team. We will continue to monitor Hypertension, monitor blood pressure Lactic acidosis. Probably secondary to sepsis and hypoxemia. Managed by medical team Degenerative joint disease. Depression, patient reports she has been struggling with depression since the of her daughter 3 years ago. Reports has had worsening depression recently. Agreeable to starting medication. Will defer to medical services. SERENA FLORES MD Apr 22, 2022 10:00
[2022-04-22] MEDS: AZITHROMYCIN 250 MG TAB (ZITHROMAX) PO SCH (10:50)
[2022-04-22] MEDS: ASPIRIN 81 MG CHEW (CHILDREN'S ASA) PO SCH (10:50)
[2022-04-22] MEDS: PANTOPRAZOLE 40 MG (PROTONIX) TAB PO SCH (10:50)
[2022-04-22] MEDS: ENOXAPARIN 40 MG/0.4 ML (LOVENOX) SYR SQ SCH (11:49)
--- NOTE | 2022-04-22 12:38 | Discharge Summary ---
Discharge Summary Hospital Course Was the Problem List Reviewed?: Yes Problems/Dx: (1) Pulmonary edema (2) Peripheral edema (3) Elevated troponin I level (4) Wheezing Hospital Course Date of Admission: Apr 20, 2022 at 10:23 Admission Diagnosis : Family Physician/Provider: Wilmer Beach DO Date of Discharge: 04/22/22 Discharge Diagnosis: [ ] Hospital Course: Deann is an 81-year-old female who presented to the ED 04/20 with SOB for the past 1.5 weeks and worsening bilateral lower extremity edema for the previous 2 days. Her SOB is aggravated by doing housework and is better with rest. Her SOB has not worsened but is not improving for the past 1.5 weeks which is why she decided to come to the ED. Notes an unproductive cough for the past 2 weeks but otherwise feeling well without fevers. Her granddaughter was sick 2-3 weeks ago and then patient felt she caught the illness. She also complains of upper thoracic/lower cervical pain for the past year that comes and goes, gets to a 7.5/10 in severity. It does not radiate anywhere, specifically no pain in jaw or shoulders/arms. She is taking Aleve every day and using a heating pad to relieve the pain. She went to the [facility] on 04/13 for evaluation of SOB and back pain. They gave her muscle relaxers and ibuprofen and advised she get her "heart checked" at the ED. She did not go to the ED at that time. Notes she stopped taking the muscle relaxers as they made her feel bad and switched back to Aleve as ibuprofen was not working as well. Her only PMH is depression and anxiety that started after losing her daughter 3 years ago. There have been a lot of family stressors since. She is not currently taking any medications for this as she states she doesn't like "how they make her feel." CXR with patchy alveolar infiltrates in lungs suspicious for pneumonia and mild underlying pulmonary venous congestion. EKG with sinus tachycardia, left atrial enlargement, left bundle branch block. Labs notable for troponin of 0.034, BNP of 2160, lactic acid of 2.44, procalcitonin of 0.04. Dr. Solano saw the patient and started her on aggressive diuretics and Lovenox as well as adding beta jian. 2D echo done 04/20 showing diffuse hypokinesia, EF 30-35%. Mildly dilated LA, moderate to severe MR, severe TR, moderate pulmonary regurgitation, PA 50-55mmHg. She underwent cardiac catheterization with Dr. Solano on 04/22 which revealed multi vessel disease. She was transferred to ICU afterwards. Dr. Solano started the patient on Lipitor, Jardiance, Coreg, Entresto as well as Zoloft for depression. Plan to transfer to [place] for CABG surgery. She is accompanied by her granddaughter and great-granddaughter. 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 Her PCP is Dr. Wilmer Beach. [facility] Labs and Pending Lab Test: Laboratory Tests 04/22/22 06:05: White Blood Count 12.5H, Red Blood Count 3.65L, Hemoglobin 11.3L, Hematocrit 36, Mean Corpuscular Volume 99, Mean Corpuscular Hemoglobin 31, Mean Corpuscular Hemoglobin Concent 31L, Red Cell Distribution Width 13.7, Platelet Count 450H, Mean Platelet Volume 9.9, Immature Granulocyte % (Auto) 1, Neutrophils (%) (Auto) 60, Lymphocytes (%) (Auto) 32, Monocytes (%) (Auto) 5, Eosinophils (%) (Auto) 2, Basophils (%) (Auto) 1, Neutrophils # (Auto) 7.5, Lymphocytes # (Auto) 3.9, Monocytes # (Auto) 0.6, Eosinophils # (Auto) 0.3, Basophils # (Auto) 0.1, Immature Granulocyte # (Auto) 0.1, Sodium Level 137, Potassium Level 3.9, Chloride Level 99, Carbon Dioxide Level 25, Anion Gap 13, Blood Urea Nitrogen 34H, Creatinine 1.35H, Estimat Glomerular Filtration Rate 39, BUN/Creatinine Ratio 25, Glucose Level 102, Calcium Level 8.5, Corrected Calcium 8.9, Total Bilirubin 0.4, Aspartate Amino Transf (AST/SGOT) 20, Alanine Aminotransferase (ALT/SGPT) 15, Alkaline Phosphatase 63, Total Protein 6.9, Albumin 3.5 Microbiology 04/20/22 Blood Culture - Preliminary, Resulted No growth Home Meds Active Reported Vicks Nyquil Cough Liquid (Dextromethorphan Hb/Doxylamine) 15 Mg-6.25 Mg/15 Ml Solution 30 Ml PO Q6H PRN [Balance Of Nature] 1 Ea PO DAILY Advil (Ibuprofen) 200 Mg Capsule 600-800 Mg PO Q8H PRN Assessment/Pt Instructions Transfer to [facility] Discharge Planning: <30 minutes discharge planning Discharge Instructions Discharge Diet: No Restrictions Discharge Physical Examination Vital Signs Vital Signs Date Time Temp Pulse Resp B/P (MAP) Pulse Ox O2 Delivery O2 Flow Rate FiO2 04/22/22 12:00 36.1 04/22/22 11:00 84 26 117/70 (86) 94 Nasal Cannula 2.00 General Appearance: No Apparent Distress, WD/WN, Chronically ill Allergies: Coded Allergies: No Known Drug Allergies (Unverified , 04/20/22) Discharge Summary Date of Admission Apr 20, 2022 at 10:23 Date of Discharge Discharge Date: Apr 22, 2022 Admission Diagnosis New onset CHF due to systolic dysfunction suspicious for ischemic cardiomyopathy Pulmonary edema/volume overload Severe mitral valve regurgitation Acute resp failure Pulmonary HTN Bronchitis No evidence of sepsis Discharge Diagnosis (1) Pulmonary edema (2) Peripheral edema (3) Elevated troponin I level (4) Wheezing Clinical Quality Measures AMI/AHF: ASA po Prior to arrival: CODI Dickinson DO Apr 22, 2022 12:38
--- NOTE | 2022-04-22 14:27 | Progress Note ---
[facility] 04/22/22 1427: Progress Note Deann is an 81-year-old female who presented to the ED 04/20 with SOB for the past 1.5 weeks and worsening bilateral lower extremity edema for the previous 2 days. Her SOB is aggravated by doing housework and is better with rest. Her SOB has not worsened but is not improving for the past 1.5 weeks which is why she decided to come to the ED. Notes an unproductive cough for the past 2 weeks but otherwise feeling well without fevers. Her granddaughter was sick 2-3 weeks ago and then patient felt she caught the illness. She also complains of upper thoracic/lower cervical pain for the past year that comes and goes, gets to a 7.5/10 in severity. It does not radiate anywhere, specifically no pain in jaw or shoulders/arms. She is taking Aleve every day and using a heating pad to relieve the pain. She went to the [facility] on 04/13 for evaluation of SOB and back pain. They gave her muscle relaxers and ibuprofen and advised she get her "heart checked" at the ED. She did not go to the ED at that time. Notes she stopped taking the muscle relaxers as they made her feel bad and switched back to Aleve as ibuprofen was not working as well. Her only PMH is depression and anxiety that started after losing her daughter 3 years ago. There have been a lot of family stressors since. She is not currently taking any medications for this as she states she doesn't like "how they make her feel." CXR with patchy alveolar infiltrates in lungs suspicious for pneumonia and mild underlying pulmonary venous congestion. EKG with sinus tachycardia, left atrial enlargement, left bundle branch block. Labs notable for troponin of 0.034, BNP of 2160, lactic acid of 2.44, procalcitonin of 0.04. Dr. Solano saw the patient and started her on aggressive diuretics and Lovenox as well as adding beta jian. 2D echo done 04/20 showing diffuse hypokinesia, EF 30-35%. Mildly dilated LA, moderate to severe MR, severe TR, moderate pulmonary regurgitation, PA 50-55mmHg. She underwent cardiac catheterization with Dr. Solano on 04/22 which revealed multi vessel disease. She was transferred to ICU afterwards. Dr. Solano started the patient on Lipitor, Jardiance, Coreg, Entresto as well as Zoloft for depression. Plan to transfer to [place] for CABG surgery. She is accompanied by her granddaughter and great-granddaughter. 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 Her PCP is Dr. Wilmer Beach. KOMAL MAE DO 04/23/22 0454: Supervisory-Addendum Brief Verification & Attestation Participated in pt care: history, MDM, physical Personally performed: exam, history, MDM, supervision of care Care discussed with: Medical Student Procedures: n/a Results interpretation: Verified all documentation Verification and Attestation of Medical Student E/M Service A medical student performed and documented this service in my presence. I reviewed and verified all information documented by the medical student and made modifications to such information, when appropriate. I personally performed the physical exam and medical decision making. Komal Mae, Apr 23, 2022,04:54 SHAHAB RICHARDSON Apr 22, 2022 14:27 KOMAL MAE DO Apr 23, 2022 04:54
[2022-04-22] MEDS ORDERED: SERTRALINE 50 MG (ZOLOFT) TABLET PO SCH (21:00)
== END 2022-04-22 15:53 | disposition critical access hospital, planned readmission (94) ==
LOC: EDUNIT# 08:31 → ER 08:33 → EDBD 08:33 → 4TH 10:23 → ICU 04-22 09:31 → 4TH 04-22 13:10
PROVIDERS: ADMIT Internal Medicine; ATTEND Internal Medicine
DX: J81.1 Chronic pulmonary edema (principal); R60.0 Localized edema; R77.8 Other specified abnormalities of plasma proteins; I25.10 Atherosclerotic heart disease of native coronary artery without angina pectoris; I08.1 Rheumatic disorders of both mitral and tricuspid valves; I25.5 Ischemic cardiomyopathy; A41.9 Sepsis, unspecified organism; I21.4 Non-ST elevation (NSTEMI) myocardial infarction; E78.5 Hyperlipidemia, unspecified; I11.0 Hypertensive heart disease with heart failure; I50.21 Acute systolic (congestive) heart failure; E87.20 Acidosis, unspecified; M19.90 Unspecified osteoarthritis, unspecified site; F41.9 Anxiety disorder, unspecified; F32.9 Major depressive disorder, single episode, unspecified; D75.839 Thrombocytosis, unspecified; I44.7 Left bundle-branch block, unspecified; J15.8 Pneumonia due to other specified bacteria; I27.20 Pulmonary hypertension, unspecified; J40 Bronchitis, not specified as acute or chronic
CPT/HCPCS: 36221; 71045; 80053 ×3; 80061; 83605; 83880; 84145; 84484; 85025 ×3; 87040; 87636; 93005; 93458; 94640; 94760; 96366; 96372 ×3; 96376 ×3; 99284; C1894; C8929; G0378; 36415; 93306

== ENCOUNTER 2022-04-28 18:51 | Inpatient (IN) | payer MEDICARE ==
[2022-04-28] VITALS (9 sets, daily range): BP systolic 104–120; BP diastolic 53–73
[~2022-04-28] VITALS: Ht 167.7 cm; Wt 72.0 kg
[~2022-04-28 18:51] MED LIST: BALANCE OF NATURE PO; D ME PO; DEXT236S PO; DEXT5SYR PO; IBUP200C11 PO
[2022-04-28] MEDS ORDERED: CARV3.12 (19:14)
[2022-04-28] MEDS ORDERED: ATOR80TA76 PO (19:14)
[2022-04-28] MEDS ORDERED: TICA90TA PO (19:14)
[2022-04-28] MEDS ORDERED: ASPI-999 PO (19:14)
[2022-04-28] MEDS ORDERED: ISOS30TA82 PO (19:14)
[2022-04-28] MEDS ORDERED: CARV3.122 PO (19:14)
--- NOTE | 2022-04-28 19:23 | ED Respiratory ---
General Chief Complaint: Respiratory Problems Stated Complaint: TROUBLE BREATHING Nursing Triage Note: PT TO ED IN WITH C/O DIFFICULTY BREATHING. PT REPORTS SOB BEGAN TODAY, WORSE THIS EVENING. PT REPORTS SHE ASKED GRANDDAUGHTER TO BRING HER IN EARLIER TODAY, BUT GRANDDAUGHTER TOLD HER SHE WAS JUST ANXIOUS. PT WAS DC FROM [place] YESTERDAY AFTER HAVING 2-3 CARDIAC STENTS PLACED. Source: patient (VERY LIMITED HISTORIAN WITH POOR MEMORY) History of Present Illness Date Seen by Provider: Apr 28, 2022 Time Seen by Provider: 19:07 Initial Comments PT ARRIVES VIA POV FROM HOME C/O SHORTNESS OF BREATH ALL DAY TODAY, WORSE THIS EVENING PT WAS JUST DISMISSED FROM [facility] YESTERDAY AFTER HAVING "2 OR 3" STENTS SHE WAS INITIALLY SEEN HERE AND HAD A CARDIAC CATH BY DR. FLORES, THEN TRANSFERRED TO [place] PT WAS STARTED ON UNKNOWN MEDICATIONS--APPEARS TO BE ON 81 MG ASPIRIN, ISOSORBIDE, ATORVASTATIN, BRILINTA AND COREG, PER MED RECONCILIATION PT STATES SHE ALSO RECENTLY HAD PNEUMONIA WELL,. SHE IS NOT CURRENTLY ON ANTIBIOTICS SHE DENIES FEVER DENIES NAUSEA/VOMITING DENIES SWEATS DENIES CHEST PAIN DENIES SWELLING IN HER FEET / ANKLES SHE HAS HAD COVID VACCINE X 2, NO FLU VACCINE. PCP: DR. CELINA TENA INSERTER OPERATOR: DR. FLORES Allergies and Home Medications Allergies Coded Allergies: No Known Drug Allergies (Unverified , 04/20/22) Patient Home Medication List Home Medication List Reviewed: Yes Aspirin (Aspirin) 81 Mg Tab.chew, (Reported) Entered as Reported by: JOSE DE JESUS JHA on 04/28/221913 Last Action: New Order Atorvastatin Calcium (Atorvastatin Calcium) 80 Mg Tablet, (Reported) Entered as Reported by: JOSE DE JESUS JHA on 04/28/221913 Last Action: New Order Carvedilol (Coreg) 3.125 Mg Tablet, (Reported) Entered as Reported by: JOSE DE JESUS JHA on 04/28/221913 Last Action: New Order Carvedilol (Carvedilol) 3.125 Mg Tablet, (Reported) Entered as Reported by: JOSE DE JESUS JHA on 04/28/221913 Last Action: New Order Dextromethorphan Hb/Doxylamine (Vicks Nyquil Cough Liquid) 15 Mg-6.25 Mg/15 Ml Solution, 30 ML PO Q6H PRN for COUGH, (Reported) Entered as Reported by: SURESH LYNCH on 04/20/221557 Ibuprofen (Advil) 200 Mg Capsule, 600-800 MG PO Q8H PRN for PAIN-MILD (1-4), (Reported) Entered as Reported by: SURESH LYNCH on 04/20/221557 Isosorbide Mononitrate (Isosorbide Mononitrate ER) 30 Mg Tab.er.24h, (Reported) Entered as Reported by: JOSE DE JESUS JHA on 04/28/221913 Last Action: New Order Ticagrelor (Brilinta) 90 Mg Tablet, (Reported) Entered as Reported by: JOSE DE JESUS JHA on 04/28/221913 Last Action: New Order [Balance Of Nature] , 1 EA PO DAILY, (Reported) Entered as Reported by: SURESH LYNCH on 04/20/221557 Review of Systems Review of Systems Constitutional: no symptoms reported; No dizziness, No fever EENTM: no symptoms reported Respiratory: see HPI; No cough; dyspnea on exertion, orthopnea, short of breath Cardiovascular: see HPI; No chest pain, No edema, No palpitations; vascular heart diseas Gastrointestinal: no symptoms reported; No abdominal pain, No diarrhea, No nausea, No vomiting Genitourinary: no symptoms reported Musculoskeletal: no symptoms reported Skin: no symptoms reported Psychiatric/Neurological: Anxiety Hematologic/Lymphatic: Easy Bruising Immunological/Allergic: no symptoms reported Past Ydgourz-Kireay-Patpgp Hx Patient Social History Tobacco Use?: No Use of E-Cig and/or Vaping dev: No Substance use?: No Alcohol Use?: No Pt feels they are or have been: No Immunizations Up To Date Influenza Vaccine Up-to-Date: No; Not Current First/Initial COVID19 Vaccinat: 2020 Second COVID19 Vaccination Jonathan: 2020 Third COVID19 Vaccination Date: 2020 Past Medical History Surgery/Hospitalization HX: CARDIAC STENT X 2 Surgeries: Yes Cardiac, Coronary Stent Respiratory: Yes Pneumonia Cardiac: Yes (LBBB; CAD WITH STENTS; EF 30-35%; CHF; NSTEMI 04/20/22) Cardiomyopathy, Chronic Edema/Swelling, Coronary Artery Disease, Heart Attack, High Cholesterol, Hypertension Genitourinary: No Gastrointestinal: No Musculoskeletal: No Endocrine: No HEENT: No Cancer: No Psychosocial: Yes Anxiety, Depression Integumentary: No Blood Disorders: Yes (ANEMIA) Family Medical History No Pertinent Family Hx, Other Conditions/Hx ECHOCARDIOGRAM 04/20/[address] 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 FLORES: CONCLUSION: 1. Ostial left main coronary artery stenosis and distal left main 2. Total occlusion in the mid LAD reconstructed by collaterals 3. Severe ostial right coronary artery and total occlusion in the mid right coronary artery reconstructed by collaterals, dominant right coronary artery 4. Congestive heart failure, acute left ventricular systolic dysfunction, ischemic cardiomyopathy ejection fraction 30 to 35% by echo. Elevated left ventricular end-diastolic pressure 5. Slightly prominent aortic arch with calcification. DISCUSSION AND RECOMMENDATION: Hospital course: Patient was started on Coreg, Entresto, Jardiance, continue with Lasix and arrangement to transfer the patient for evaluation for bypass surgery. Physical Exam Vital Signs - First Documented 04/28/22 18:54 Temp 36.3 Pulse 132 Resp 30 B/P (MAP) 105/73 (84) Pulse Ox 97 O2 Delivery Room Air Capillary Refill : Less Than 3 Seconds Height: '" Weight: lbs. oz. kg; 24.00 BMI Method: General Appearance: WD/WN, other (BUT IS MILDLY DYSPNEIC,, YET IS ABLE TO TALK IN FULL SENTENCES.) Neck: normal inspection Respiratory: other (MILDLY LABORED BREATHING, BUT NO WHEEZING/RALES/RHONCHI. DECREASED AERATION IN BASES BILATERALLY. MILDLY TACHYPNEIC. ) Cardiovascular: no edema, no JVD, no murmur, tachycardia Gastrointestinal: non tender, soft Extremities: normal range of motion, non-tender, normal inspection, no pedal edema, no calf tenderness, normal capillary refill Neurologic/Psychiatric: housekeeping coordinator II-XII nml as tested, no motor/sensory deficits, alert, oriented x 3, other (ANXIOUS) Skin: warm/dry, ecchymosis (LEFT HAND AND FOREARM WITH EXTENSIVE BRUISING ( ? SITE OF CARDIAC CATH ? ) ALSO HAS LARGE BRUISE TO LEFT MID ABDOMEN; BILATERAL INGUINAL AREAS WITH DRESSINGS, AND SURROUNDING BRUISING--LEFT HAS GREATER BRUISING THAN RIGHT, WITH BRUISING EXTENDING DOWN LEFT THIGH. NO TENDERNESS OR SIGNFICANT SWELLING TO THESE AREAS. RIGHT HAND AND FOREARM WITH MILD SWELLING. DISTAL MOTOR/SENSORY AND VASCULAR IS INTACT IN ALL EXTREMITIES. ), pallor Focused Exam Sepsis Stage: Sepsis Possible Source: Pulmonary Time of Focused Exam: 20:00 Respiratory: Normal Breath Sounds, No Accessory Muscle Use, No Respiratory Distress Cardiovascular: No JVD, Tachycardia Skin: warm/dry, pallor Within 3hrs of presentation: Admin ABX, Blood cultures prior to ABX's, Focus exam, Lactate level, Other (NO FLUIDS GIVEN PT IS IN CHF, AND BLOOD PRESSURE IS ESSENTIALLY NORMAL. ) Progress/Results/Core Measures Suspected Sepsis SIRS Temperature: Pulse: 132 Respiratory Rate: 30 Laboratory Tests 04/28/22 19:18: White Blood Count 12.2H Blood Pressure 105 /73 Mean: 84 Laboratory Tests 04/28/22 19:18: Creatinine 0.92, INR Comment 1.0, Platelet Count 406H, Total Bilirubin 2.0H Results/Orders Lab Results Laboratory Tests Test 04/28/22 19:18 04/28/22 19:32 Range/Units White Blood Count 12.2 H 4.3-11.0 10^3/uL Red Blood Count 3.24 L 3.80-5.11 10^6/uL Hemoglobin 10.3 L 11.5-16.0 g/dL Hematocrit 32 L 35-52 % Mean Corpuscular Volume 98 80-99 fL Mean Corpuscular Hemoglobin 32 25-34 pg Mean Corpuscular Hemoglobin Concent 32 32-36 g/dL Red Cell Distribution Width 13.5 10.0-14.5 % Platelet Count 406 H 130-400 10^3/uL Mean Platelet Volume 9.7 9.0-12.2 fL Immature Granulocyte % (Auto) 1 % Neutrophils (%) (Auto) 61 42-75 % Lymphocytes (%) (Auto) 25 12-44 % Monocytes (%) (Auto) 9 0-12 % Eosinophils (%) (Auto) 4 0-10 % Basophils (%) (Auto) 1 0-10 % Neutrophils # (Auto) 7.4 1.8-7.8 10^3/uL Lymphocytes # (Auto) 3.0 1.0-4.0 10^3/uL Monocytes # (Auto) 1.1 H 0.0-1.0 10^3/uL Eosinophils # (Auto) 0.5 H 0.0-0.3 10^3/uL Basophils # (Auto) 0.1 0.0-0.1 10^3/uL Immature Granulocyte # (Auto) 0.1 0.0-0.1 10^3/uL Erythrocyte Sedimentation Rate 67 H 0-30 MM/HR Prothrombin Time 14.0 12.2-14.7 SEC INR Comment 1.0 0.8-1.4 Activated Partial Thromboplast Time 42 H 24-35 SEC D-Dimer 1.03 H 0.00-0.49 UG/ML Sodium Level 137 135-145 MMOL/L Potassium Level 3.9 3.6-5.0 MMOL/L Chloride Level 105 98-107 MMOL/L Carbon Dioxide Level 18 L 21-32 MMOL/L Anion Gap 14 5-14 MMOL/L Blood Urea Nitrogen 19 H 7-18 MG/DL Creatinine 0.92 0.60-1.30 MG/DL Estimat Glomerular Filtration Rate 62 BUN/Creatinine Ratio 21 Glucose Level 142 H 70-105 MG/DL Calcium Level 8.9 8.5-10.1 MG/DL Corrected Calcium 9.1 8.5-10.1 MG/DL Magnesium Level 2.2 1.6-2.4 MG/DL Total Bilirubin 2.0 H 0.1-1.0 MG/DL Aspartate Amino Transf (AST/SGOT) 26 5-34 U/L Alanine Aminotransferase (ALT/SGPT) 14 0-55 U/L Alkaline Phosphatase 77 40-136 U/L Total Creatine Kinase 66 29-168 U/L Creatine Kinase MB 1.6 <6.6 NG/ML Troponin I 0.051 H <0.028 NG/ML C-Reactive Protein High Sensitivity 7.97 H 0.00-0.50 MG/DL B-Type Natriuretic Peptide 1065.3 H <100.0 PG/ML Total Protein 7.6 6.4-8.2 GM/DL Albumin 3.8 3.2-4.5 GM/DL Procalcitonin 0.10 H <0.10 NG/ML Influenza Type A (RT-PCR) Not Detected Not Detecte Influenza Type B (RT-PCR) Not Detected Not Detecte SARS-CoV-2 RNA (RT-PCR) Not Detected Not Detecte My Orders Orders - GLORIA MONTERO DO Ed Iv/Invasive Line Start (04/28/22 19:07) Ekg Tracing (04/28/22 19:07) O2 (04/28/22 19:07) Monitor-Rhythm Ecg Trace Only (04/28/22 19:07) Bnp Dina (04/28/22 19:07) Cbc With Automated Diff (04/28/22 19:07) Comprehensive Metabolic Panel (04/28/22 19:07) Creatine Kinase (04/28/22 19:07) Creatine Kinase Mb (04/28/22 19:07) Hs C Reactive Protein (04/28/22 19:07) Fibrin Degradation Products (04/28/22 19:07) Magnesium (04/28/22 19:07) Protime With Inr (04/28/22 19:07) Partial Thromboplastin Time (04/28/22 19:07) Erythrocyte Sedimentation Rate (04/28/22 19:07) Troponin I [place] (04/28/22 19:07) Chest 1 View, Ap/Pa Only (04/28/22 19:07) Covid 19 Inhouse Test (04/28/22 19:07) Influenza A And B By Pcr (04/28/22 19:07) Isolation Central Supply Req (04/28/22 19:07) Furosemide Injection (Lasix Injection) (04/28/22 20:15) Medications Given in ED Current Medications Medications Dose Ordered Sig/Nayeli Route Start Time Stop Time Status Last Admin Dose Admin Furosemide 40 mg ONCE ONCE IVP 04/28/22 20:15 04/28/22 20:16 DC 04/28/22 20:37 40 MG Vital Signs/I&O 04/28/22 04/28/22 18:54 19:18 Temp 36.3 Pulse 132 Resp 30 B/P (MAP) 105/73 (84) Pulse Ox 97 O2 Delivery Room Air Room Air Capillary Refill : Less Than 3 Seconds Blood Pressure Mean: 84 Progress Note : Progress Note CARDIAC LABS/TESTS ORDERED SEPSIS PROTOCOL ALSO INITIATED DUE TO PT'S REPORTED HISTORY OF RECENT PNEUMONIAL HEART RATE DOWN, RESPIRATORY RATE DOWN O2 SATS REMAIN IN UPPER 90'S ON ROOM AIR. BP REMAINS STABLE. NO DETERIORATION IN PT'S CONDITION DURING ER STAY REVIEWED RECENT ADMIT, INCLUDING H&P, CONSULTS, CARDIAC CATH REPORT, ECHOCARDIOGRAM, AND DISCHARGE SUMMARY GIVEN: -LASIX -ANTIBIOTICS IV FLUIDS HELD AT THIS TIME, PT IS IN CHF, AND HAS LOW EF OF 30-35%. ECG Initial ECG Impression Date: Apr 28, 2022 Initial ECG Impression Time: 19:16 Initial ECG Rate: 116 Initial ECG Rhythm: S.Tach (LBBB) Initial ECG Comparisson: Unchanged (LBBB WAS PRESENT ON MOST RECENT EKG 04/20/22) Diagnostic Imaging Comments CXR--PER RADIOLOGIST REPORT AT 1935 COMPARISON: Chest x-ray dated 04/20/2022. FINDINGS: There is cardiomegaly and mild pulmonary vascular congestion. There is patchy airspace opacities involving the right midlung field and right lung base concerning for infiltrates. There is no pleural effusion or pneumothorax. Bones show no significant abnormality. IMPRESSION: 1: There is cardiomegaly with mild pulmonary vascular congestion which can be seen with congestive heart failure. 2: There are patchy airspace opacities involving the right midlung field and right lung base concerning for lung infiltrates. Reviewed: Reviewed by Me Departure Communication (Admissions) 2017--SPOKE WITH DR. LIM, TERRA COTTA ROOFER FOR [facility] [place]. ACCEPTS PT FOR ADMIT 2019--SPOKE WITH DR. LOWE, TERRA COTTA ROOFER FOR CARDIOLOGY, ORDERS FOR LASIX NOTED Impression Primary Impression: CHF (congestive heart failure) Additional Impressions: Pneumonia RECENT STEMI WITH STENT PLACEMENT Anxiety Mild anemia Sepsis Disposition: ADMITTED INPATIENT Condition: Stable Admissions Decision to Admit Reason: Admit from ER (General) Decision to Admit/Date: Apr 28, 2022 Time/Decision to Admit Time: 20:20 Departure-Patient Inst. Referrals: SURESH PATRICK DO (PCP/Family) Primary Care Physician GLORIA MONTERO DO Apr 28, 2022 19:23
[2022-04-28 19:30] LABS: BASOPHILS # (AUTO) 0.1 10^3/uL (0.0-0.1); BASOPHILS % (AUTO) 1 % (0-10); EOSINOPHILS # (AUTO) 0.5 10^3/uL (0.0-0.3); EOSINOPHILS % (AUTO) 4 % (0-10); HEMATOCRIT 32 % (35-52); HEMOGLOBIN 10.3 g/dL (11.5-16.0); LYMPHOCYTES % (AUTO) 25 % (12-44); MEAN CORPUSCULAR HEMOGLOBIN 32 pg (25-34); MEAN CORPUSCULAR HGB CONC 32 g/dL (32-36); MEAN CORPUSCULAR VOLUME 98 fL (80-99); MEAN PLATELET VOLUME 9.7 fL (9.0-12.2); MONOCYTES # (AUTO) 1.1 10^3/uL (0.0-1.0); MONOCYTES % (AUTO) 9 % (0-12); NEUTROPHILS # (AUTO) 7.4 10^3/uL (1.8-7.8); NEUTROPHILS % (AUTO) 61 % (42-75); PLATELET COUNT 406 10^3/uL (130-400); WHITE BLOOD COUNT 12.2 10^3/uL (4.3-11.0)
--- NOTE | 2022-04-28 19:33 | Diagnostic Imaging Report ---
CLINICAL INDICATIONS: Patient complains of difficulty breathing. Patient complains of shortness of breath that began today and worsened in the evening. EXAM: Portable chest x-ray upright view. COMPARISON: Chest x-ray dated 04/20/2022. FINDINGS: There is cardiomegaly and mild pulmonary vascular congestion. There is patchy airspace opacities involving the right midlung field and right lung base concerning for infiltrates. There is no pleural effusion or pneumothorax. Bones show no significant abnormality. IMPRESSION: 1: There is cardiomegaly with mild pulmonary vascular congestion which can be seen with congestive heart failure. 2: There are patchy airspace opacities involving the right midlung field and right lung base concerning for lung infiltrates. Dictated by: Dictated on workstation # [id number]
[2022-04-28 19:40] LABS: FIBRIN DEGRADATION PRODUCTS 1.03 UG/ML (0.00-0.49)
[2022-04-28 19:43] LABS: ALBUMIN 3.8 GM/DL (3.2-4.5); CALCIUM 8.9 MG/DL (8.5-10.1); CREATININE SERUM 0.92 MG/DL (0.60-1.30); MAGNESIUM 2.2 MG/DL (1.6-2.4); POTASSIUM 3.9 MMOL/L (3.6-5.0); TOTAL PROTEIN 7.6 GM/DL (6.4-8.2)
[2022-04-28 19:51] LABS: CREATINE KINASE MB 1.6 NG/ML (<6.6)
[2022-04-28 20:12] LABS: ERYTHROCYTE SEDIMENTATION RATE 67 MM/HR (0-30)
[2022-04-28] MEDS ORDERED: FUROSEMIDE 40 MG/4 ML INJ (LASIX) IVP ONE (20:15)
[2022-04-28] MEDS ORDERED: CEFEPIME INJECTION 1,000 MG in NS (IVPB) 50 ML IV ONE (20:30)
[2022-04-28] MEDS: MELATONIN 3 MG TABLET PO PRN (23:10)
[2022-04-28] MEDS ORDERED: ONDANSETRON 4 MG/2 ML (SDV) Z0FRAN IV PRN (23:15)
[2022-04-28] MEDS ORDERED: morphine INJ 4 MG/ML 1 ML (VIAL/SYRINGE) IV PRN (23:15)
[2022-04-28] MEDS ORDERED: NITROGLYCERIN 0.4 MG SL TABS BTL 25'S SL PRN (23:15)
[2022-04-28] MEDS ORDERED: CATHETER FLUSH 10 ML SYR IVP PRN (23:15)
[2022-04-28] MEDS ORDERED: ACETAMINOPHEN 500 MG TAB (TYLENOL) PO PRN (23:15)
[2022-04-29] VITALS (8 sets, daily range): BP systolic 99–118; BP diastolic 43–72
[2022-04-29] MEDS: RT-ALBUTEROL SULF 2.5 MG/3 ML PRE-MIX VIAL INH PRN ×2 (00:13→03:49)
[2022-04-29] MEDS ORDERED: CEFEPIME 1,000 MG/NS 50 ML IVPB IV SCH ×2 (03:00)
[2022-04-29] MEDS: CATHETER FLUSH 10 ML SYR IVP SCH ×3 (03:38→21:08)
[2022-04-29 06:23] LABS: BASOPHILS # (AUTO) 0.1 10^3/uL (0.0-0.1); BASOPHILS % (AUTO) 1 % (0-10); EOSINOPHILS # (AUTO) 0.4 10^3/uL (0.0-0.3); EOSINOPHILS % (AUTO) 4 % (0-10); HEMATOCRIT 30 % (35-52); HEMOGLOBIN 9.6 g/dL (11.5-16.0); LYMPHOCYTES # (AUTO) 2.2 10^3/uL (1.0-4.0); LYMPHOCYTES % (AUTO) 22 % (12-44); MEAN CORPUSCULAR HEMOGLOBIN 32 pg (25-34); MEAN CORPUSCULAR HGB CONC 32 g/dL (32-36); MEAN CORPUSCULAR VOLUME 98 fL (80-99); MEAN PLATELET VOLUME 9.7 fL (9.0-12.2); MONOCYTES # (AUTO) 0.9 10^3/uL (0.0-1.0); MONOCYTES % (AUTO) 9 % (0-12); NEUTROPHILS # (AUTO) 6.2 10^3/uL (1.8-7.8); NEUTROPHILS % (AUTO) 63 % (42-75); PLATELET COUNT 342 10^3/uL (130-400); WHITE BLOOD COUNT 9.8 10^3/uL (4.3-11.0)
[2022-04-29 06:44] LABS: ALBUMIN 3.6 GM/DL (3.2-4.5); BILIRUBIN,TOTAL 2.1 MG/DL (0.1-1.0); CALCIUM 8.8 MG/DL (8.5-10.1); CREATININE SERUM 0.96 MG/DL (0.60-1.30); POTASSIUM 3.5 MMOL/L (3.6-5.0)
[2022-04-29] MEDS: ACETAMINOPHEN 500 MG TAB (TYLENOL) PO PRN (07:01)
[2022-04-29] MEDS: ALPRAZolam 0.25 MG (XANAX) TAB PO PRN (07:01)
--- NOTE | 2022-04-29 08:57 | Diagnostic Imaging Report ---
INDICATION: Congestive heart failure Portable chest 7:13 AM Comparison made to previous days exam. There is some right perihilar infiltrate and/or atelectasis. Left lung is clear. There are no effusions or pneumothoraces. IMPRESSION: Improving aeration in the chest with residual right perihilar infiltrate and/or atelectasis. Dictated by: Dictated on workstation # [id number]
--- NOTE | 2022-04-29 09:57 | History & Physical ---
HPI History of Present Illness: 81 yo female came to the ER due to feeling short of breath. She is hungry and feels like nothing ever gets fixed when she comes to the hospital. She would like to go home, she says if she dies from a heart problem at home "oh well". She was recently discharged from [facility] after coronary artery stent placement. She denies chest pain. Source: patient Date seen by provider: Apr 29, 2022 Time Seen by Provider: 10:00 Attending Physician Wilmer Beach DO PCP Admitting Physician: Korin Ruiz MD Attending Physician: Korin Ruiz MD Consult Date of Admission Apr 28, 2022 at 20:18 Home Medications Home Medications Reviewed patient Home Medication Reconciliation performed by pharmacy medication reconciliations screen making technician and/or nursing. Patients Allergies have been reviewed. Allergies Coded Allergies: No Known Drug Allergies (Unverified , 04/20/22) POR-Uiijbr-Xirvli Hx Patient Social History Smoking Status: Never a Smoker Alcohol Use?: No Have you traveled recently?: No Immunizations Up To Date Influenza Vaccine Up-to-Date: No; Not Current First/Initial COVID19 Vaccinat: 2020 Second COVID19 Vaccination Jonathan: 2020 Third COVID19 Vaccination Date: 2020 Past Medical History PMHx: Coronary artery disease Congestive heart failure, acute left ventricular systolic dysfunction, ischemic cardiomyopathy ejection fraction 30 to 35% by echo 03/2022 SurgHx: Denies Family Medical History Significant Family History: No Pertinent Family Hx, Other Conditions/Hx Other Significan Family Hx: ECHOCARDIOGRAM 04/20/[address] 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 FLORES: CONCLUSION: 1. Ostial left main coronary artery stenosis and distal left main 2. Total occlusion in the mid LAD reconstructed by collaterals 3. Severe ostial right coronary artery and total occlusion in the mid right coronary artery reconstructed by collaterals, dominant right coronary artery 4. Congestive heart failure, acute left ventricular systolic dysfunction, ischemic cardiomyopathy ejection fraction 30 to 35% by echo. Elevated left ventricular end-diastolic pressure 5. Slightly prominent aortic arch with calcification. DISCUSSION AND RECOMMENDATION: Hospital course: Patient was started on Coreg, Entresto, Jardiance, continue with Lasix and arrangement to transfer the patient for evaluation for bypass surgery. Review of Systems ([facility]) Constitutional: other (unable to obtain, patient frustrated and not wanting to continue with questions at this time) Reviewed Test Results Reviewed Test Results Lab Laboratory Tests Test 04/28/22 19:18 04/28/22 19:32 04/28/22 20:30 04/28/22 22:49 Range/Units White Blood Count 12.2 H 4.3-11.0 10^3/uL Red Blood Count 3.24 L 3.80-5.11 10^6/uL Hemoglobin 10.3 L 11.5-16.0 g/dL Hematocrit 32 L 35-52 % Mean Corpuscular Volume 98 80-99 fL Mean Corpuscular Hemoglobin 32 25-34 pg Mean Corpuscular Hemoglobin Concent 32 32-36 g/dL Red Cell Distribution Width 13.5 10.0-14.5 % Platelet Count 406 H 130-400 10^3/uL Mean Platelet Volume 9.7 9.0-12.2 fL Immature Granulocyte % (Auto) 1 % Neutrophils (%) (Auto) 61 42-75 % Lymphocytes (%) (Auto) 25 12-44 % Monocytes (%) (Auto) 9 0-12 % Eosinophils (%) (Auto) 4 0-10 % Basophils (%) (Auto) 1 0-10 % Neutrophils # (Auto) 7.4 1.8-7.8 10^3/uL Lymphocytes # (Auto) 3.0 1.0-4.0 10^3/uL Monocytes # (Auto) 1.1 H 0.0-1.0 10^3/uL Eosinophils # (Auto) 0.5 H 0.0-0.3 10^3/uL Basophils # (Auto) 0.1 0.0-0.1 10^3/uL Immature Granulocyte # (Auto) 0.1 0.0-0.1 10^3/uL Erythrocyte Sedimentation Rate 67 H 0-30 MM/HR Prothrombin Time 14.0 12.2-14.7 SEC INR Comment 1.0 0.8-1.4 Activated Partial Thromboplast Time 42 H 24-35 SEC D-Dimer 1.03 H 0.00-0.49 UG/ML Sodium Level 137 135-145 MMOL/L Potassium Level 3.9 3.6-5.0 MMOL/L Chloride Level 105 98-107 MMOL/L Carbon Dioxide Level 18 L 21-32 MMOL/L Anion Gap 14 5-14 MMOL/L Blood Urea Nitrogen 19 H 7-18 MG/DL Creatinine 0.92 0.60-1.30 MG/DL Estimat Glomerular Filtration Rate 62 BUN/Creatinine Ratio 21 Glucose Level 142 H 70-105 MG/DL Calcium Level 8.9 8.5-10.1 MG/DL Corrected Calcium 9.1 8.5-10.1 MG/DL Magnesium Level 2.2 1.6-2.4 MG/DL Total Bilirubin 2.0 H 0.1-1.0 MG/DL Aspartate Amino Transf (AST/SGOT) 26 5-34 U/L Alanine Aminotransferase (ALT/SGPT) 14 0-55 U/L Alkaline Phosphatase 77 40-136 U/L Total Creatine Kinase 66 29-168 U/L Creatine Kinase MB 1.6 <6.6 NG/ML Troponin I 0.051 H 0.115 H <0.028 NG/ML C-Reactive Protein High Sensitivity 7.97 H 0.00-0.50 MG/DL B-Type Natriuretic Peptide 1065.3 H <100.0 PG/ML Total Protein 7.6 6.4-8.2 GM/DL Albumin 3.8 3.2-4.5 GM/DL Procalcitonin 0.10 H <0.10 NG/ML Influenza Type A (RT-PCR) Not Detected Not Detecte Influenza Type B (RT-PCR) Not Detected Not Detecte SARS-CoV-2 RNA (RT-PCR) Not Detected Not Detecte Lactic Acid Level 1.18 0.50-2.00 MMOL/L Test 04/29/22 01:40 04/29/22 06:01 Range/Units Troponin I 0.232 H <0.028 NG/ML White Blood Count 9.8 4.3-11.0 10^3/uL Red Blood Count 3.01 L 3.80-5.11 10^6/uL Hemoglobin 9.6 L 11.5-16.0 g/dL Hematocrit 30 L 35-52 % Mean Corpuscular Volume 98 80-99 fL Mean Corpuscular Hemoglobin 32 25-34 pg Mean Corpuscular Hemoglobin Concent 32 32-36 g/dL Red Cell Distribution Width 13.4 10.0-14.5 % Platelet Count 342 130-400 10^3/uL Mean Platelet Volume 9.7 9.0-12.2 fL Immature Granulocyte % (Auto) 1 % Neutrophils (%) (Auto) 63 42-75 % Lymphocytes (%) (Auto) 22 12-44 % Monocytes (%) (Auto) 9 0-12 % Eosinophils (%) (Auto) 4 0-10 % Basophils (%) (Auto) 1 0-10 % Neutrophils # (Auto) 6.2 1.8-7.8 10^3/uL Lymphocytes # (Auto) 2.2 1.0-4.0 10^3/uL Monocytes # (Auto) 0.9 0.0-1.0 10^3/uL Eosinophils # (Auto) 0.4 H 0.0-0.3 10^3/uL Basophils # (Auto) 0.1 0.0-0.1 10^3/uL Immature Granulocyte # (Auto) 0.1 0.0-0.1 10^3/uL Sodium Level 139 135-145 MMOL/L Potassium Level 3.5 L 3.6-5.0 MMOL/L Chloride Level 105 98-107 MMOL/L Carbon Dioxide Level 22 21-32 MMOL/L Anion Gap 12 5-14 MMOL/L Blood Urea Nitrogen 19 H 7-18 MG/DL Creatinine 0.96 0.60-1.30 MG/DL Estimat Glomerular Filtration Rate 59 BUN/Creatinine Ratio 20 Glucose Level 111 H 70-105 MG/DL Calcium Level 8.8 8.5-10.1 MG/DL Corrected Calcium 9.1 8.5-10.1 MG/DL Total Bilirubin 2.1 H 0.1-1.0 MG/DL Aspartate Amino Transf (AST/SGOT) 26 5-34 U/L Alanine Aminotransferase (ALT/SGPT) 13 0-55 U/L Alkaline Phosphatase 69 40-136 U/L B-Type Natriuretic Peptide 806.7 H <100.0 PG/ML Total Protein 7.0 6.4-8.2 GM/DL Albumin 3.6 3.2-4.5 GM/DL Triglycerides Level 120 <150 MG/DL Cholesterol Level 144 < 200 MG/DL LDL Cholesterol Direct 89 1-129 MG/DL VLDL Cholesterol 24 5-40 MG/DL HDL Cholesterol 35 L 40-60 MG/DL Radiology IMPRESSION: 1: There is cardiomegaly with mild pulmonary vascular congestion which can be seen with congestive heart failure. 2: There are patchy airspace opacities involving the right midlung field and right lung base concerning for lung infiltrates. Physical Exam-([facility]) Physical Exam Vital Signs VS - Last 72 Hours, by Label 04/28/22 04/28/22 04/28/22 04/28/22 18:54 19:18 21:42 22:05 Temp 36.3 36.0 Pulse 132 105 Resp 30 18 B/P (MAP) 105/73 (84) 131/72 Pulse Ox 97 98 97 O2 Delivery Room Air Room Air Room Air Room Air 04/28/22 04/28/22 04/28/22 04/28/22 22:06 22:10 22:14 22:30 Pulse 101 105 109 107 Resp 16 21 B/P (MAP) 120/62 (81) 120/62 (81) 118/61 (80) Pulse Ox 99 97 96 O2 Delivery Room Air Room Air Room Air 04/28/22 04/28/22 04/28/22 04/28/22 22:45 23:00 23:07 23:15 Temp 36.3 Pulse 98 112 132 102 Resp 14 32 13 B/P (MAP) 104/73 (83) 108/57 (74) 112/56 (74) Pulse Ox 98 98 97 96 O2 Delivery Room Air Room Air Room Air FiO2 21 04/28/22 04/28/22 04/29/22 04/29/22 23:30 23:45 00:00 00:13 Temp 37.1 Pulse 96 105 94 Resp 21 22 18 B/P (MAP) 106/53 (70) 114/54 (74) 103/43 (63) Pulse Ox 96 97 98 97 O2 Delivery Room Air Room Air Room Air Room Air O2 Flow Rate 0.00 FiO2 21 04/29/22 04/29/22 04/29/22 04/29/22 00:30 01:00 01:00 03:49 Pulse 103 92 106 Resp 30 9 B/P (MAP) 105/72 (83) 109/69 (82) Pulse Ox 97 95 98 O2 Delivery Room Air Room Air Room Air O2 Flow Rate 0.00 FiO2 21 04/29/22 04/29/22 04/29/22 04/29/22 04:00 07:00 08:00 08:00 Temp 36.5 37.0 Pulse 86 99 92 Resp 12 12 B/P (MAP) 108/63 (78) 107/56 (73) Pulse Ox 97 96 O2 Delivery Room Air Room Air Nasal Cannula O2 Flow Rate 2.00 04/29/22 04/29/22 10:16 11:53 Temp 36.6 Pulse 92 Resp 17 B/P (MAP) 110/68 (82) Pulse Ox 96 97 O2 Delivery Room Air Room Air Capillary Refill : Less Than 3 Seconds General Appearance: WD/WN, no apparent distress Respiratory: lungs clear, normal breath sounds Cardiovascular: regular rate, rhythm Neurologic/Psychiatric: normal mood/affect Skin: warm/dry Assessment/Plan Assessment/Plan Admission Status: Inpatient Order (span 2 midnights) Reason for Inpatient Admission: CHF with pneumonia (1) Elevated troponin I level Status: Acute Assessment & Plan: Mild, but trending up, Cardiology consulted, appreciate recommendations. (2) Coronary artery disease Status: Chronic Assessment & Plan: s/p recent stenting at OSH. Resume home meds. Qualifiers: Qualified Codes: I25.10 - Atherosclerotic heart disease of [place] coronary artery without angina pectoris (3) CHF (congestive heart failure) Status: Acute Assessment & Plan: Diagnosed end of Mar with echo prior to her transfer for intervention. Resume home meds. Qualifiers: (4) Pneumonia Status: Acute Assessment & Plan: Cefepime (5) DVT prophylaxis Status: Acute Assessment & Plan: Enoxaparin KORIN RUIZ MD Apr 29, 2022 09:57
[2022-04-29] MEDS: RT-ALBUTEROL SULF 2.5 MG/3 ML PRE-MIX VIAL INH SCH ×2 (10:16→21:02)
--- NOTE | 2022-04-29 10:23 | Consultation-Cardiology ---
HPI-Cardiology Cardiology Consultation Date of Consultation 04/29/22 Date of Admission Time Seen by Provider: 10:18 Indication: Shortness of breath HPI 81-year-old lady with coronary artery disease, congestive heart failure, ischemic cardiomyopathy. Was hospitalized last week and had a cardiac catheterization showing multivessel coronary artery disease, patient was referred to [facility] for evaluation for CABG, underwent multivessel stenting. She was discharged about 2 days ago, started to have increasing shortness of breath, tightness and fatigue. Came into the emergency room and noted to have mild elevation in troponin. She denied any active chest pain but fairly anxious about eating food. She said that she has been hungry and has been waiting the whole morning. Home Medications & Allergies Allergies: Coded Allergies: No Known Drug Allergies (Unverified , 04/20/22) Home Medication List Reviewed: Yes QLB-Daticc-Cptfse Hx Patient Social History Marital Status: Employed/Student: retired Smoking Status: Never a Smoker Have you traveled recently?: No Alcohol Use?: No Past Medical History Discussed below Family Medical History Significant Family History: No Pertinent Family Hx, Other Conditions/Hx Review of Systems-General Review of Systems Constitutional: no symptoms reported; No dizziness, No fever; malaise EENTM: no symptoms reported Respiratory: see HPI; No cough; dyspnea on exertion, orthopnea, short of breath Cardiovascular: see HPI; No chest pain, No edema, No palpitations; vascular heart diseas Gastrointestinal: no symptoms reported; No abdominal pain, No diarrhea, No nausea, No vomiting Genitourinary: no symptoms reported Musculoskeletal: no symptoms reported Skin: no symptoms reported Psychiatric/Neurological: Anxiety Reviewed Test Results Reviewed Test Results Lab Laboratory Tests Test 04/28/22 19:18 04/28/22 19:32 04/28/22 20:30 04/28/22 22:49 Range/Units White Blood Count 12.2 H 4.3-11.0 10^3/uL Red Blood Count 3.24 L 3.80-5.11 10^6/uL Hemoglobin 10.3 L 11.5-16.0 g/dL Hematocrit 32 L 35-52 % Mean Corpuscular Volume 98 80-99 fL Mean Corpuscular Hemoglobin 32 25-34 pg Mean Corpuscular Hemoglobin Concent 32 32-36 g/dL Red Cell Distribution Width 13.5 10.0-14.5 % Platelet Count 406 H 130-400 10^3/uL Mean Platelet Volume 9.7 9.0-12.2 fL Immature Granulocyte % (Auto) 1 % Neutrophils (%) (Auto) 61 42-75 % Lymphocytes (%) (Auto) 25 12-44 % Monocytes (%) (Auto) 9 0-12 % Eosinophils (%) (Auto) 4 0-10 % Basophils (%) (Auto) 1 0-10 % Neutrophils # (Auto) 7.4 1.8-7.8 10^3/uL Lymphocytes # (Auto) 3.0 1.0-4.0 10^3/uL Monocytes # (Auto) 1.1 H 0.0-1.0 10^3/uL Eosinophils # (Auto) 0.5 H 0.0-0.3 10^3/uL Basophils # (Auto) 0.1 0.0-0.1 10^3/uL Immature Granulocyte # (Auto) 0.1 0.0-0.1 10^3/uL Erythrocyte Sedimentation Rate 67 H 0-30 MM/HR Prothrombin Time 14.0 12.2-14.7 SEC INR Comment 1.0 0.8-1.4 Activated Partial Thromboplast Time 42 H 24-35 SEC D-Dimer 1.03 H 0.00-0.49 UG/ML Sodium Level 137 135-145 MMOL/L Potassium Level 3.9 3.6-5.0 MMOL/L Chloride Level 105 98-107 MMOL/L Carbon Dioxide Level 18 L 21-32 MMOL/L Anion Gap 14 5-14 MMOL/L Blood Urea Nitrogen 19 H 7-18 MG/DL Creatinine 0.92 0.60-1.30 MG/DL Estimat Glomerular Filtration Rate 62 BUN/Creatinine Ratio 21 Glucose Level 142 H 70-105 MG/DL Calcium Level 8.9 8.5-10.1 MG/DL Corrected Calcium 9.1 8.5-10.1 MG/DL Magnesium Level 2.2 1.6-2.4 MG/DL Total Bilirubin 2.0 H 0.1-1.0 MG/DL Aspartate Amino Transf (AST/SGOT) 26 5-34 U/L Alanine Aminotransferase (ALT/SGPT) 14 0-55 U/L Alkaline Phosphatase 77 40-136 U/L Total Creatine Kinase 66 29-168 U/L Creatine Kinase MB 1.6 <6.6 NG/ML Troponin I 0.051 H 0.115 H <0.028 NG/ML C-Reactive Protein High Sensitivity 7.97 H 0.00-0.50 MG/DL B-Type Natriuretic Peptide 1065.3 H <100.0 PG/ML Total Protein 7.6 6.4-8.2 GM/DL Albumin 3.8 3.2-4.5 GM/DL Procalcitonin 0.10 H <0.10 NG/ML Influenza Type A (RT-PCR) Not Detected Not Detecte Influenza Type B (RT-PCR) Not Detected Not Detecte SARS-CoV-2 RNA (RT-PCR) Not Detected Not Detecte Lactic Acid Level 1.18 0.50-2.00 MMOL/L Test 04/29/22 01:40 04/29/22 06:01 Range/Units Troponin I 0.232 H <0.028 NG/ML White Blood Count 9.8 4.3-11.0 10^3/uL Red Blood Count 3.01 L 3.80-5.11 10^6/uL Hemoglobin 9.6 L 11.5-16.0 g/dL Hematocrit 30 L 35-52 % Mean Corpuscular Volume 98 80-99 fL Mean Corpuscular Hemoglobin 32 25-34 pg Mean Corpuscular Hemoglobin Concent 32 32-36 g/dL Red Cell Distribution Width 13.4 10.0-14.5 % Platelet Count 342 130-400 10^3/uL Mean Platelet Volume 9.7 9.0-12.2 fL Immature Granulocyte % (Auto) 1 % Neutrophils (%) (Auto) 63 42-75 % Lymphocytes (%) (Auto) 22 12-44 % Monocytes (%) (Auto) 9 0-12 % Eosinophils (%) (Auto) 4 0-10 % Basophils (%) (Auto) 1 0-10 % Neutrophils # (Auto) 6.2 1.8-7.8 10^3/uL Lymphocytes # (Auto) 2.2 1.0-4.0 10^3/uL Monocytes # (Auto) 0.9 0.0-1.0 10^3/uL Eosinophils # (Auto) 0.4 H 0.0-0.3 10^3/uL Basophils # (Auto) 0.1 0.0-0.1 10^3/uL Immature Granulocyte # (Auto) 0.1 0.0-0.1 10^3/uL Sodium Level 139 135-145 MMOL/L Potassium Level 3.5 L 3.6-5.0 MMOL/L Chloride Level 105 98-107 MMOL/L Carbon Dioxide Level 22 21-32 MMOL/L Anion Gap 12 5-14 MMOL/L Blood Urea Nitrogen 19 H 7-18 MG/DL Creatinine 0.96 0.60-1.30 MG/DL Estimat Glomerular Filtration Rate 59 BUN/Creatinine Ratio 20 Glucose Level 111 H 70-105 MG/DL Calcium Level 8.8 8.5-10.1 MG/DL Corrected Calcium 9.1 8.5-10.1 MG/DL Total Bilirubin 2.1 H 0.1-1.0 MG/DL Aspartate Amino Transf (AST/SGOT) 26 5-34 U/L Alanine Aminotransferase (ALT/SGPT) 13 0-55 U/L Alkaline Phosphatase 69 40-136 U/L B-Type Natriuretic Peptide 806.7 H <100.0 PG/ML Total Protein 7.0 6.4-8.2 GM/DL Albumin 3.6 3.2-4.5 GM/DL Triglycerides Level 120 <150 MG/DL Cholesterol Level 144 < 200 MG/DL LDL Cholesterol Direct 89 1-129 MG/DL VLDL Cholesterol 24 5-40 MG/DL HDL Cholesterol 35 L 40-60 MG/DL Physical Exam Physical Exam Vital Signs Vital Signs - First Documented 04/28/22 04/28/22 04/29/22 18:54 23:07 00:13 Temp 36.3 Pulse 132 Resp 30 B/P (MAP) 105/73 (84) Pulse Ox 97 O2 Delivery Room Air O2 Flow Rate 0.00 FiO2 21 Capillary Refill : Less Than 3 Seconds Height, Weight, BMI Height: '" Weight: lbs. oz. kg; 27.13 BMI Method: General Appearance: No Apparent Distress, WD/WN Eyes: Bilateral Eye Normal Inspection, Bilateral Eye PERRL, Bilateral Eye EOMI HEENT: PERRL/EOMI, TMs Normal, Normal ENT Inspection, Pharynx Normal, Moist Mucous Membranes Neck: Full Range of Motion, Normal Inspection, Non Tender, Supple, Carotid Bruit Respiratory: Normal Breath Sounds, No Accessory Muscle Use, No Respiratory Distress Cardiovascular: No JVD, Tachycardia Gastrointestinal: Normal Bowel Sounds, No Organomegaly, No Pulsatile Mass, Non Tender, Soft Back: Normal Inspection, No CVA Tenderness, No Vertebral Tenderness Extremity: Normal Capillary Refill, Normal Inspection, Normal Range of Motion, Non Tender, No Calf Tenderness, No Pedal Edema Neurologic/Psychiatric: Alert, Oriented x3, No Motor/Sensory Deficits, Normal Mood/Affect Skin: Normal Color, Warm/Dry Lymphatic: No Adenopathy A/P-Cardiology Admission Diagnosis Congestive heart failure Non-ST elevation myocardial infarction Coronary artery disease Hypertension Assessment/Plan Congestive heart failure, acute on chronic left ventricular systolic dysfunction, dilated ischemic cardiomyopathy Patient is still having elevation in BNP 2D echo was done in March 2022 with diffuse left ventricular hypokinesia and ejection fraction 30 to 35%, mildly dilated left atrium, moderate to severe mitral regurgitation, severe tricuspid regurgitation and pulmonary artery press ure 50 to 55 mmHg Non-ST elevation myocardial infarction, mild elevation in troponin, had complex intervention done at [facility] last week. Continue aspirin and Brilinta and monitor tolerance and response Coronary artery disease, Cardiac catheterization was carried out on April 22, 2022 showing total occlusion of the mid LAD reconstructed by collaterals, total occlusion at the mid right coronary artery reconstructed by collaterals, severe ostial left main and ostial right coronary artery stenosis. Patient was transferred to [facility] for evaluation for CABG He was seen by Dr. Lea, had a left main coronary artery stent placed. The LAD is chronically occluded that was deemed inoperable. Attempt to intervene on the right coronary artery was not successful. Has severe disease with distal occlusion that failed intervention. Conservative management is recommended at this point Pneumonia, receiving antibiotics and managed by primary care physician Hypertension, monitor blood pressure Degenerative joint disease. Depression, patient reports she has been struggling with depression since the of her daughter 3 years ago. Reports has had worsening depression recently. Agreeable to starting medication. Will defer to medical services. SERENA FLORES MD Apr 29, 2022 10:23
[2022-04-29] MEDS ORDERED: MELA10TA2 PO (11:57)
[2022-04-29] MEDS ORDERED: DICY20TA PO (12:00)
[2022-04-29] MEDS: CEFEPIME 1,000 MG/NS 50 ML IVPB IV SCH ×4 (13:02→19:56)
[2022-04-29] MEDS: ASPIRIN E.C. 81 MG (ECOTRIN) TAB PO SCH (13:03)
[2022-04-29] MEDS: TICAGRELOR 90 MG TABLET (BRILINTA) PO SCH ×2 (13:03→20:44)
[2022-04-29] MEDS: FUROSEMIDE 40 MG/4 ML INJ (LASIX) IVP SCH ×2 (13:04→18:17)
[2022-04-29] MEDS ORDERED: NON-FORMULARY MEDICATION 1 EA EA (Dicyclomine HCl 20 MG) PO PRN (13:15)
[2022-04-29] MEDS ORDERED: DICYCLOMINE 10 MG (BENTYL) CAP PO PRN (13:30)
[2022-04-29] MEDS ORDERED: ENOXAPARIN 40 MG/0.4 ML (LOVENOX) SYR SQ SCH (13:30)
[2022-04-29] MEDS: MELATONIN 3 MG TABLET PO PRN (21:04)
[2022-04-30] VITALS: BP 94/53
[2022-04-30] MEDS: CEFEPIME 1,000 MG/NS 50 ML IVPB IV SCH ×2 (03:11)
[2022-04-30 05:43] LABS: BASOPHILS # (AUTO) 0.1 10^3/uL (0.0-0.1); BASOPHILS % (AUTO) 1 % (0-10); EOSINOPHILS # (AUTO) 0.6 10^3/uL (0.0-0.3); EOSINOPHILS % (AUTO) 6 % (0-10); HEMATOCRIT 32 % (35-52); LYMPHOCYTES % (AUTO) 22 % (12-44); MEAN CORPUSCULAR HEMOGLOBIN 31 pg (25-34); MEAN CORPUSCULAR HGB CONC 32 g/dL (32-36); MEAN CORPUSCULAR VOLUME 99 fL (80-99); MEAN PLATELET VOLUME 9.7 fL (9.0-12.2); MONOCYTES # (AUTO) 0.5 10^3/uL (0.0-1.0); MONOCYTES % (AUTO) 6 % (0-12); NEUTROPHILS # (AUTO) 5.8 10^3/uL (1.8-7.8); NEUTROPHILS % (AUTO) 64 % (42-75); PLATELET COUNT 364 10^3/uL (130-400); WHITE BLOOD COUNT 9.1 10^3/uL (4.3-11.0)
[2022-04-30] MEDS: CATHETER FLUSH 10 ML SYR IVP SCH (05:59)
[2022-04-30] MEDS: FUROSEMIDE 40 MG/4 ML INJ (LASIX) IVP SCH (06:06)
[2022-04-30] MEDS: ACETAMINOPHEN 500 MG TAB (TYLENOL) PO PRN (06:07)
[2022-04-30] MEDS: ALPRAZolam 0.25 MG (XANAX) TAB PO PRN (06:07)
[2022-04-30 06:13] LABS: ALBUMIN 3.6 GM/DL (3.2-4.5); BILIRUBIN,TOTAL 2.9 MG/DL (0.1-1.0); CREATININE SERUM 1.07 MG/DL (0.60-1.30); POTASSIUM 3.6 MMOL/L (3.6-5.0); TOTAL PROTEIN 7.5 GM/DL (6.4-8.2)
[2022-04-30 08:00] VITALS: BP 109/61
[2022-04-30] MEDS ORDERED: LOSARTAN 25 MG (COZAAR) TAB PO SCH (09:00)
[2022-04-30] MEDS: ASPIRIN E.C. 81 MG (ECOTRIN) TAB PO SCH (09:07)
[2022-04-30] MEDS: TICAGRELOR 90 MG TABLET (BRILINTA) PO SCH (09:08)
--- NOTE | 2022-04-30 09:50 | Cardiology Progress Note ---
Progress Note-Cardiology Events since last exam Date Seen by Provider: Apr 30, 2022 Time Seen by Provider: 09:47 Events since last exam We are following her due to NSTEMI and heart failure. Her breathing has impr jose guadalupe and her peripheral edema has resolved. She denies any chest discomfort. She denies palpitations or syncope. She feels almost back to baseline and would like to go home today if possible. Certain portions of this document may have been dictated utilizing voice recognition technology. Inherent to this technology, typographical and grammatical errors may exist. As much as I am diligent to identify and correct these mistakes, some errors may remain in the document. Vitals Last set of Vitals Signs Vital Signs 04/29/22 04/30/22 03:49 08:28 Pulse Ox 96 O2 Delivery Room Air O2 Flow Rate 0.00 FiO2 21 Labs Labs Laboratory Tests 04/30/22 05:26 Exam Vital Signs Vital Signs Date Time Temp Pulse Resp B/P (MAP) Pulse Ox O2 Delivery O2 Flow Rate FiO2 04/30/22 11:00 04/30/22 08:28 96 Room Air 0.00 04/30/22 08:00 36.4 84 30 04/29/22 03:49 21 Physical Exam General: Alert. No acute distress. Eye: No xanthelasma. HENT: Normocephalic. Neck: Jugular venous pressure does not appear elevated. Respiratory: Lungs have bibasilar crackles. Respirations are non-labored. Breath sounds are equal. Symmetrical chest wall expansion. Cardiovascular: Normal rate. Regular rhythm. No murmur. No gallop. No edema. Gastrointestinal: Soft. Normal bowel sounds. Skin: Warm. Dry. Neurologic: Alert and oriented to person, place, time. Cranial nerves 3-11 grossly intact. Psychiatric: Cooperative. Appropriate mood & affect. Labs Laboratory Tests Test 04/30/22 05:26 Range/Units White Blood Count 9.1 4.3-11.0 10^3/uL Red Blood Count 3.19 L 3.80-5.11 10^6/uL Hemoglobin 10.0 L 11.5-16.0 g/dL Hematocrit 32 L 35-52 % Mean Corpuscular Volume 99 80-99 fL Mean Corpuscular Hemoglobin 31 25-34 pg Mean Corpuscular Hemoglobin Concent 32 32-36 g/dL Red Cell Distribution Width 13.7 10.0-14.5 % Platelet Count 364 130-400 10^3/uL Mean Platelet Volume 9.7 9.0-12.2 fL Immature Granulocyte % (Auto) 0 % Neutrophils (%) (Auto) 64 42-75 % Lymphocytes (%) (Auto) 22 12-44 % Monocytes (%) (Auto) 6 0-12 % Eosinophils (%) (Auto) 6 0-10 % Basophils (%) (Auto) 1 0-10 % Neutrophils # (Auto) 5.8 1.8-7.8 10^3/uL Lymphocytes # (Auto) 2.0 1.0-4.0 10^3/uL Monocytes # (Auto) 0.5 0.0-1.0 10^3/uL Eosinophils # (Auto) 0.6 H 0.0-0.3 10^3/uL Basophils # (Auto) 0.1 0.0-0.1 10^3/uL Immature Granulocyte # (Auto) 0.0 0.0-0.1 10^3/uL Sodium Level 135 135-145 MMOL/L Potassium Level 3.6 3.6-5.0 MMOL/L Chloride Level 104 98-107 MMOL/L Carbon Dioxide Level 20 L 21-32 MMOL/L Anion Gap 11 5-14 MMOL/L Blood Urea Nitrogen 21 H 7-18 MG/DL Creatinine 1.07 0.60-1.30 MG/DL Estimat Glomerular Filtration Rate 52 BUN/Creatinine Ratio 20 Glucose Level 110 H 70-105 MG/DL Calcium Level 9.0 8.5-10.1 MG/DL Corrected Calcium 9.3 8.5-10.1 MG/DL Total Bilirubin 2.9 H 0.1-1.0 MG/DL Aspartate Amino Transf (AST/SGOT) 28 5-34 U/L Alanine Aminotransferase (ALT/SGPT) 15 0-55 U/L Alkaline Phosphatase 70 40-136 U/L Troponin I 0.117 H <0.028 NG/ML B-Type Natriuretic Peptide 191.0 H <100.0 PG/ML Total Protein 7.5 6.4-8.2 GM/DL Albumin 3.6 3.2-4.5 GM/DL Diagnosis/Problems Diagnosis/Problems (1) Acute on chronic HFrEF (heart failure with reduced ejection fraction) Assessment & Plan: Symptomatically improved. From a cardiac standpoint, she can be discharged home. She is on beta-jian and losartan. I suggested a low-dose of oral Lasix. Given her borderline low blood pressure, she is not currently a candidate for an aldosterone antagonist. She should follow-up with Dr. Solano in the office in 1 week. (2) Non-ST elevation myocardial infarction (NSTEMI), initial care episode Assessment & Plan: She was not having chest discomfort. Some of this troponin elevation could be residual from her recent coronary stents at the outside facility earlier this week. She should continue on aspirin, ticagrelor, beta- jian, and statin medication. (3) Ischemic cardiomyopathy Assessment & Plan: Her guideline directed medical therapy will be titrated and she will ultimately need a reassessment of her ejection fraction after she is on the maximum tolerated dose of guideline directed medical therapy to determine whether or not she may need a prophylactic defibrillator implantation. (4) Coronary artery disease with unstable angina pectoris Assessment & Plan: As above. She is not having angina. She should continue on the current guideline directed medical therapy as outlined above. (5) Mitral regurgitation Assessment & Plan: She had moderate mitral regurgitation on her recent echocardiogram. This will need to be followed longitudinally. (6) Pulmonary hypertension Assessment & Plan: This was noted on her recent echocardiogram. Exact etiology unclear. This will need to be followed longitudinally. (7) Mixed hyperlipidemia Assessment & Plan: Continue intensive dose statin therapy in light of the r ecent myocardial infarction. (8) Primary hypertension Assessment & Plan: Blood pressure is adequately controlled with the present combination of medications. As her guideline directed medical therapy is titrated upwards for her cardiomyopathy and heart failure, her blood pressure will need to be monitored closely to avoid iatrogenic hypotension. BOB LOWE JR, MD Apr 30, 2022 09:50
[2022-04-30] MEDS ORDERED: ASPI-999 PO (10:11)
[2022-04-30] MEDS ORDERED: ATOR80TA76 PO (10:11)
[2022-04-30] MEDS ORDERED: POTA-177 PO (10:11)
[2022-04-30] MEDS ORDERED: TICA90TA PO (10:11)
[2022-04-30] MEDS ORDERED: CARV3.122 PO (10:11)
[2022-04-30] MEDS ORDERED: ISOS30TA82 PO (10:11)
[2022-04-30] MEDS ORDERED: LOSA25TA41 PO (10:11)
[2022-04-30] MEDS ORDERED: FURO20TA4 PO (10:11)
--- NOTE | 2022-04-30 10:36 | Diagnostic Imaging Report ---
INDICATION: Congestive heart failure. Portable chest 3:45 AM FINDINGS: Heart size and pulmonary vascularity are normal. Lungs are clear. There are no effusions or pneumothoraces. IMPRESSION: No acute abnormalities in the chest. Improved aeration compared to previous day. Dictated by: Dictated on workstation # [id number]
--- NOTE | 2022-04-30 15:14 | Discharge Summary ---
Discharge Summary Hospital Course Problems/Diagnosis: (1) Elevated troponin I level Status: Acute Assessment & Plan: Mild, but trending up, Cardiology consulted, treated for CHF exacerbation, appreciate recommendations. (2) Coronary artery disease Status: Chronic Assessment & Plan: s/p recent stenting at OSH. Resume home meds. Qualifiers: Qualified Codes: I25.10 - Atherosclerotic heart disease of [place] coronary artery without angina pectoris (3) CHF (congestive heart failure) Status: Acute Assessment & Plan: Diagnosed end of Mar with echo prior to her transfer for intervention. Resume home meds and added lasix daily. Qualifiers: (4) Pneumonia Status: Resolved Resolution Date/Time: 04/29/22 @ 15:13 Assessment & Plan: Originally suspected possible pneumonia, however given no fever, minimal leukocytosis and rapidly clearing CXR, suspect her symptoms were CHF related rather than infection. Hospital Course Date of Admission: Apr 28, 2022 at 20:18 Admission Diagnosis : Family Physician/Provider: Wilmer Beach DO Date of Discharge: 04/30/22 Discharge Diagnosis: See problem list Hospital Course: See problem list Labs and Pending Lab Test: Laboratory Tests 04/30/22 05:26: White Blood Count 9.1, Red Blood Count 3.19L, Hemoglobin 10.0L, Hematocrit 32L, Mean Corpuscular Volume 99, Mean Corpuscular Hemoglobin 31, Mean Corpuscular Hemoglobin Concent 32, Red Cell Distribution Width 13.7, Platelet Count 364, Mean Platelet Volume 9.7, Immature Granulocyte % (Auto) 0, Neutrophils (%) (Auto) 64, Lymphocytes (%) (Auto) 22, Monocytes (%) (Auto) 6, Eosinophils (%) (Auto) 6, Basophils (%) (Auto) 1, Neutrophils # (Auto) 5.8, Lymphocytes # (Auto) 2.0, Monocytes # (Auto) 0.5, Eosinophils # (Auto) 0.6H, Basophils # (Auto) 0.1, Immature Granulocyte # (Auto) 0.0, Sodium Level 135, Potassium Level 3.6, Chloride Level 104, Carbon Dioxide Level 20L, Anion Gap 11, Blood Urea Nitrogen 21H, Creatinine 1.07, Estimat Glomerular Filtration Rate 52, BUN/Creatinine Rat io 20, Glucose Level 110H, Calcium Level 9.0, Corrected Calcium 9.3, Total Bilirubin 2.9H, Aspartate Amino Transf (AST/SGOT) 28, Alanine Aminotransferase (ALT/SGPT) 15, Alkaline Phosphatase 70, Troponin I 0.117H, B-Type Natriuretic Peptide 191.0H, Total Protein 7.5, Albumin 3.6 Microbiology 04/28/22 Blood Culture - Preliminary, Resulted No growth Home Meds Active Potassium Chloride 10 Meq Tab.er.prt 10 Meq PO DAILY Furosemide 20 Mg Tablet 20 Mg PO DAILY Losartan Potassium 25 Mg Tablet 25 Mg PO DAILY Carvedilol 3.125 Mg Tablet 3.125 Mg PO BID PRESCRIBED YESTERDAY BY [facility] BUT IT HAS NOT BEEN STARTED (STILL AT THE PHARMACY) Brilinta (Ticagrelor) 90 Mg Tablet 90 Mg PO BID STARTED YESTERDAY BY [facility], ONLY HAD 1 DOSE AT HOME Atorvastatin Calcium 80 Mg Tablet 80 Mg PO DAILY PRESCRIBED YESTERDAY BY [facility] BUT IT HAS NOT BEEN STARTED (STILL AT THE PHARMACY) Isosorbide Mononitrate ER (Isosorbide Mononitrate) 30 Mg Tab.er.24h 30 Mg PO DAILY PRESCRIBED YESTERDAY BY [facility] BUT IT HAS NOT BEEN STARTED (STILL AT THE PHARMACY) Aspirin 81 Mg Tab.chew 81 Mg PO DAILY Reported Dicyclomine HCl 20 Mg Tablet 20 Mg PO DAILY PRN Melatonin 10 Mg Tablet 10 Mg PO HS PRN [Balance Of Nature] 1 Ea PO DAILY Assessment/Pt DC Instructions Follow up with Cardiology as directed. Follow up with primary provider within a week. Discharge Diet: Cardiac Diet Discharge Physical Examination Allergies: Coded Allergies: No Known Drug Allergies (Unverified , 04/20/22) General Appearance: No Apparent Distress, WD/WN Respiratory: Lungs Clear, Normal Breath Sounds Cardiovascular: Regular Rate, Rhythm Gastrointestinal: Normal Bowel Sounds, Non Tender, Soft Skin: Other (entire right forearm with dark bruising, some small areas starting to clear, marked ecchymosis in bilateral inguinal region) Neurologic/Psychiatric: Alert, Normal Mood/Affect JEFF LIM MD Apr 30, 2022 15:14
[2022-05-01] MEDS ORDERED: FUROSEMIDE 20 MG (LASIX) TAB PO SCH (09:00)
== END 2022-04-30 11:00 | disposition home or self-care (01) | DRG 280 ==
LOC: EDUNIT# 18:51 → ER 18:52 → CSD 20:18
PROVIDERS: ADMIT Family Medicine; ATTEND Family Medicine
DX: I11.0 Hypertensive heart disease with heart failure (principal); I50.23 Acute on chronic systolic (congestive) heart failure; I21.4 Non-ST elevation (NSTEMI) myocardial infarction; J18.9 Pneumonia, unspecified organism; I25.5 Ischemic cardiomyopathy; I25.110 Atherosclerotic heart disease of native coronary artery with unstable angina pectoris; I34.0 Nonrheumatic mitral (valve) insufficiency; I27.20 Pulmonary hypertension, unspecified; E78.2 Mixed hyperlipidemia; Z20.822 Contact with and (suspected) exposure to COVID-19; F32.A Depression, unspecified; M19.90 Unspecified osteoarthritis, unspecified site
CPT/HCPCS: 36415; 71045; 80053; 80061; 82550; 82553; 83605; 83735; 83880; 84145; 84484; 85025; 85027; 85379; 85610; 85652; 85730; 86141; 87040; 87636; 93005; 93041; 94640

== ENCOUNTER 2022-05-13 16:12 | Emergency (ER) | payer MEDICARE ==
[~2022-05-13] VITALS: Ht 168 cm; Wt 70.0 kg
[~2022-05-13 16:12] MED LIST changes: +ASPI-999 PO; +ATOR80TA76 PO; +CARV3.12; +CARV3.122 PO; +DICY20TA PO; +FURO20TA4 PO; +ISOS30TA82 PO; +LOSA25TA41 PO; +MELA10TA2 PO; +POTA-177 PO; +TICA90TA PO
[2022-05-13] MEDS ORDERED: ACETAMINOPHEN 500 MG TAB (TYLENOL) PO ONE (16:45)
--- NOTE | 2022-05-13 16:47 | ED Respiratory ---
General Chief Complaint: Respiratory Problems Stated Complaint: SOB Nursing Triage Note: patient ambulatory to ER w c/o shortness of breath. Patient states she had stints placed recently. Source: patient Exam Limitations: no limitations History of Present Illness Date Seen by Provider: May 13, 2022 Time Seen by Provider: 16:18 Initial Comments 81-year-old female presents to the ER with reports of "trouble catching my breath" upon awakening this morning. States she was recently admitted, and had 2 cardiac stents placed. States she saw Dr. Solano, supply chain director, 2 days ago for follow-up and was feeling well. Dr. Solano thought that she had some extra fluid on her lungs, told her increase her Lasix from 20 mg once daily to 40 mg once daily for 2 days. States she has taken the 2 doses. Denies chest pain, fever/chills, abdominal pain, nausea/vomiting, edema. Also complaining of pain in her posterior neck on the left side. States the pain is better when she puts pressure on it. States this pain is chronic, and there is no change to the pain. States she was told that it is a "pinched nerve," but she thinks that it is something worse. According to notes from last admission, plan was to tee sfer patient to [place] for CABG. Patient states she was not transferred and did not have a CABG done. She currently takes Brilinta, Lasix, carvedilol, hydroxyzine, potassium, atorvastatin, aspirin 81 mg, Imdur, Jardiance, and losartan. Timing/Duration: this morning Associated Symptoms: No chest pain/soreness, No cough, No fever/chills Allergies and Home Medications Allergies Coded Allergies: No Known Drug Allergies (Unverified , 04/20/22) Patient Home Medication List Home Medication List Reviewed: Yes Aspirin (Aspirin) 81 Mg Tab.chew, 81 MG PO DAILY Prescribed by: JEFF LIM on 04/30/22 1011 Atorvastatin Calcium (Atorvastatin Calcium) 80 Mg Tablet, 80 MG PO DAILY Prescribed by: JEFF LIM on 04/30/22 1011 Carvedilol (Carvedilol) 3.125 Mg Tablet, 3.125 MG PO BID Prescribed by: JEFF LIM on 04/30/22 1011 Diazepam (Valium) 2 Mg Tablet, 2 MG PO Q8H PRN for neck pain Prescribed by: VIELKA MORALES on 05/14/222037 Dicyclomine HCl (Dicyclomine HCl) 20 Mg Tablet, 20 MG PO DAILY PRN for IBS SYMPTOMS, (Reported) Entered as Reported by: SURESH LYNCH on 04/29/22 1200 Furosemide (Furosemide) 20 Mg Tablet, 20 MG PO DAILY Prescribed by: JEFF LIM on 04/30/22 1011 Isosorbide Mononitrate (Isosorbide Mononitrate ER) 30 Mg Tab.er.24h, 30 MG PO DAILY Prescribed by: JEFF LIM on 04/30/22 1011 Losartan Potassium (Losartan Potassium) 25 Mg Tablet, 25 MG PO DAILY Prescribed by: JEFF LIM on 04/30/22 1011 Melatonin (Melatonin) 10 Mg Tablet, 10 MG PO HS PRN for SLEEP, (Reported) Entered as Reported by: SURESH LYNCH on 04/29/22 1157 Potassium Chloride (Potassium Chloride) 10 Meq Tab.er.prt, 10 MEQ PO DAILY Prescribed by: JEFF LIM on 04/30/22 1011 Ticagrelor (Brilinta) 90 Mg Tablet, 90 MG PO BID Prescribed by: JEFF LIM on 04/30/22 1011 [Balance Of Nature] , 1 EA PO DAILY, (Reported) Entered as Reported by: SURESH LYNCH on 04/20/22 1558 Review of Systems Review of Systems Constitutional: see HPI Past Ixazewf-Ftzxql-Bvaubm Hx Patient Social History Tobacco Use?: No Substance use?: No Alcohol Use?: No Immunizations Up To Date First/Initial COVID19 Vaccinat: 2020 Second COVID19 Vaccination Jonathan: 2020 Third COVID19 Vaccination Date: 2020 COVID19 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 SOLANO: CONCLUSION: 1. Ostial left main coronary artery stenosis and distal left main 2. Total occlusion in the mid LAD reconstructed by collaterals 3. Severe ostial right coronary artery and total occlusion in the mid right coronary artery reconstructed by collaterals, dominant right coronary artery 4. Congestive heart failure, acute left ventricular systolic dysfunction, ischemic cardiomyopathy ejection fraction 30 to 35% by echo. Elevated left ventricular end-diastolic pressure 5. Slightly prominent aortic arch with calcification. DISCUSSION AND RECOMMENDATION: Hospital course: Patient was started on Coreg, Entresto, Jardiance, continue with Lasix and arrangement to transfer the patient for evaluation for bypass surgery. Physical Exam Vital Signs - First Documented 05/13/22 16:19 Temp 36.8 Pulse 105 Resp 23 B/P (MAP) 109/78 (88) Pulse Ox 97 Capillary Refill : Less Than 3 Seconds Height: '" Weight: lbs. oz. kg; 24.00 BMI Method: General Appearance: WD/WN, mild distress Neck: supple, normal inspection Respiratory: chest non-tender, no respiratory distress, no accessory muscle use, crackles (sameer lower lobes, mild) Cardiovascular: no edema, no gallop, no JVD, no murmur, tachycardia Gastrointestinal: normal bowel sounds Extremities: normal range of motion, normal inspection, no pedal edema Neurologic/Psychiatric: alert, normal mood/affect, oriented x 3 Skin: normal color, warm/dry Progress/Results/Core Measures Suspected Sepsis SIRS Temperature: Pulse: 105 Respiratory Rate: 23 Laboratory Tests 05/13/22 16:22: White Blood Count 9.1 Blood Pressure 109 /78 Mean: 88 Laboratory Tests 05/13/22 16:22: Creatinine 1.18, INR Comment 1.1, Platelet Count 400, Total Bilirubin 1.4H Results/Orders Lab Results Laboratory Tests Test 05/13/22 16:22 Range/Units White Blood Count 9.1 4.3-11.0 10^3/uL Red Blood Count 4.24 3.80-5.11 10^6/uL Hemoglobin 13.6 11.5-16.0 g/dL Hematocrit 41 35-52 % Mean Corpuscular Volume 97 80-99 fL Mean Corpuscular Hemoglobin 32 25-34 pg Mean Corpuscular Hemoglobin Concent 33 32-36 g/dL Red Cell Distribution Width 14.1 10.0-14.5 % Platelet Count 400 130-400 10^3/uL Mean Platelet Volume 9.8 9.0-12.2 fL Immature Granulocyte % (Auto) 0 % Neutrophils (%) (Auto) 61 42-75 % Lymphocytes (%) (Auto) 25 12-44 % Monocytes (%) (Auto) 9 0-12 % Eosinophils (%) (Auto) 5 0-10 % Basophils (%) (Auto) 1 0-10 % Neutrophils # (Auto) 5.5 1.8-7.8 10^3/uL Lymphocytes # (Auto) 2.3 1.0-4.0 10^3/uL Monocytes # (Auto) 0.8 0.0-1.0 10^3/uL Eosinophils # (Auto) 0.4 H 0.0-0.3 10^3/uL Basophils # (Auto) 0.1 0.0-0.1 10^3/uL Immature Granulocyte # (Auto) 0.0 0.0-0.1 10^3/uL Prothrombin Time 14.4 12.2-14.7 SEC INR Comment 1.1 0.8-1.4 Activated Partial Thromboplast Time 35 24-35 SEC D-Dimer 0.80 H 0.00-0.49 UG/ML Sodium Level 138 135-145 MMOL/L Potassium Level 3.8 3.6-5.0 MMOL/L Chloride Level 103 98-107 MMOL/L Carbon Dioxide Level 21 21-32 MMOL/L Anion Gap 14 5-14 MMOL/L Blood Urea Nitrogen 27 H 7-18 MG/DL Creatinine 1.18 0.60-1.30 MG/DL Estimat Glomerular Filtration Rate 46 BUN/Creatinine Ratio 23 Glucose Level 124 H 70-105 MG/DL Calcium Level 9.5 8.5-10.1 MG/DL Corrected Calcium 9.1 8.5-10.1 MG/DL Magnesium Level 2.3 1.6-2.4 MG/DL Total Bilirubin 1.4 H 0.1-1.0 MG/DL Aspartate Amino Transf (AST/SGOT) 23 5-34 U/L Alanine Aminotransferase (ALT/SGPT) 17 0-55 U/L Alkaline Phosphatase 80 40-136 U/L Myoglobin 44.2 10.0-92.0 NG/ML Troponin I < 0.028 <0.028 NG/ML B-Type Natriuretic Peptide 178.6 H <100.0 PG/ML Total Protein 8.6 H 6.4-8.2 GM/DL Albumin 4.5 3.2-4.5 GM/DL My Orders Orders - DU CRENSHAW APRN Ekg Tracing (05/13/22 16:18) Cbc With Automated Diff (05/13/22 16:43) Magnesium (05/13/22 16:43) Chest 1 View, Ap/Pa Only (05/13/22 16:43) Comprehensive Metabolic Panel (05/13/22 16:43) Myoglobin Serum (05/13/22 16:43) Protime With Inr (05/13/22 16:43) Partial Thromboplastin Time (05/13/22 16:43) Monitor-Rhythm Ecg Trace Only (05/13/22 16:43) Ed Iv/Invasive Line Start (05/13/22 16:43) Bnp Dina (05/13/22 16:43) Fibrin Degradation Products (05/13/22 16:43) Troponin I Moca (05/13/22 16:43) Acetaminophen Tablet (Tylenol Tablet) (05/13/22 16:45) Diazepam Tablet (Valium Tablet) (05/13/22 17:45) Diazepam Tablet (Valium Tablet) (05/13/22 18:30) Diazepam Tablet (Valium Tablet) (05/13/22 18:30) Medications Given in ED Vital Signs/I&O 05/13/22 05/13/22 05/13/22 16:19 16:49 18:48 Temp 36.8 36.8 36.8 Pulse 105 114 Resp 23 22 B/P (MAP) 109/78 (88) 116/75 Pulse Ox 97 97 Capillary Refill : Less Than 3 Seconds Blood Pressure Mean: 88 Progress Note #1: Time: 16:30 Progress Note Patient seen and evaluated, sitting on bed, appears very anxious, mild distress. Based on exam and symptoms, differential diagnosis includes, but is not limited to, CHF exacerbation, PE, pneumonia, anxiety. Work-up initiated included CBC, CMP, troponin, magnesium, BNP, chest x-ray. Patient states she takes Tylenol for her neck pain, will treat pain with Tylenol here. Cardiology and hospitalist notes reviewed from previous admission. Progress Note #2: Time: 17:46 Progress Note Labs and x-ray reviewed. CBC grossly normal, CMP shows elevated BUN at 27 and slightly elevated creatinine at 1.18. Troponin negative. BNP was 178.6 which is less than previous lab. Coags are normal. D-dimer was 0.80, considered CT angio chest, but based on age-adjusted D-dimer of 0.82, it is not likely the patient has a pulmonary embolism. D-dimer is also less than previous. Chest x- ray reveals improved right and left pulmonary infiltrates. Diazepam PO ordered for muscular pain and anxiety. Progress Note #3: Time: 18:30 Progress Note Chest x-ray and all labs are improved except for slightly increased BUN and creatinine. Comfortable with patient going home at this time. Discussed test results with patient and family. Patient states she feels better after the Valium. Patient is tearful at times, states she knows that she gets herself worked up. Patient states she is comfortable going home. Given strict return precautions. Will send her home with 1 tablet of Valium 2 mg to take before bed tonight. Patient and granddaughter given information on side effects of Valium, patient lives with her granddaughter, and states her granddaughter takes good care of her. Instructed to follow-up with her primary regarding prescription for Valium for muscle relaxer. Instructed to call Dr. Solano's office to schedule follow-up. Instructed to call primary care provider for follow-up. ECG Initial ECG Impression Date: May 13, 2022 Initial ECG Impression Time: 16:28 Initial ECG Rhythm: S.Tach Initial ECG Intervals: Normal Initial ECG Impression: Nonspecific Changes Initial ECG Comparisson: Changed (improved, LBBB no longer present) Diagnostic Imaging Diagonstic Imaging: Xray Plain Films/CT/US/NM/MRI: chest Comments [facility]. [place], [place] NAME: MENDOZAIVAN Laws [facility] REC#: [id number] PT STATUS: REG ER : 1940 PHYSICIAN: DU CRENSHAW APRN ADMIT DATE: 05/13/22/ER Signed Date of Exam:05/13/22 CHEST 1 VIEW, AP/PA ONLY Indication: Shortness of breath Portable chest 4:43 PM Heart size and pulmonary vascularity are normal. There is a patchy area of increased density in the right mid lateral chest another in the left suprahilar region. These appear to be residual from previous infiltrates seen at 04/28/2022. IMPRESSION: Improving but incompletely clearing of the right and left small patchy pulmonary infiltrates. Dictated by: Dictated on workstation # [id number] Dict: 05/13/221657 Trans: 05/13/221699 TCB [id number] Interpreted by: TODD LOUIS MD Electronically signed by: TODD LOUIS MD 05/13/221699 Departure Impression Primary Impression: Shortness of breath Additional Impression: Anxiety Disposition: HOME, SELF-CARE Condition: Stable Departure-Patient Inst. Referrals: SURESH PATRICK DO (PCP/Family) Primary Care Physician Patient Instructions: Shortness of Breath (Dyspnea), Anxiety, Adult (DC) Add. Discharge Instructions: Call Dr. Solano's office and schedule follow-up appointment. Reduce dose of Lasix back to 20 mg daily. I am sending you home with 1 tablet of Valium that you can take tonight. Follow-up with your primary care provider. Discuss prescription for muscle relaxer or Valium with your primary care provider. You may continue to take Tylenol as needed for pain. Return for any new, concerning, or worsening symptoms. Return for worsening shortness of breath, increased edema, or chest pain. All discharge instructions reviewed with patient and/or family. Voiced understanding. DU CRENSHAW APRN May 13, 2022 16:47
--- NOTE | 2022-05-13 17:01 | Diagnostic Imaging Report ---
Indication: Shortness of breath Portable chest 4:43 PM Heart size and pulmonary vascularity are normal. There is a patchy area of increased density in the right mid lateral chest another in the left suprahilar region. These appear to be residual from previous infiltrates seen at 04/28/2022. IMPRESSION: Improving but incompletely clearing of the right and left small patchy pulmonary infiltrates. Dictated by: Dictated on workstation # [id number]
[2022-05-13 17:07] LABS: ALBUMIN 4.5 GM/DL (3.2-4.5)
[2022-05-13 17:08] LABS: POTASSIUM 3.8 MMOL/L (3.6-5.0)
[2022-05-13 17:09] LABS: CALCIUM 9.5 MG/DL (8.5-10.1)
[2022-05-13 17:10] LABS: TOTAL PROTEIN 8.6 GM/DL (6.4-8.2)
[2022-05-13 17:11] LABS: BASOPHILS # (AUTO) 0.1 10^3/uL (0.0-0.1); BASOPHILS % (AUTO) 1 % (0-10); EOSINOPHILS # (AUTO) 0.4 10^3/uL (0.0-0.3); EOSINOPHILS % (AUTO) 5 % (0-10); HEMATOCRIT 41 % (35-52); HEMOGLOBIN 13.6 g/dL (11.5-16.0); LYMPHOCYTES # (AUTO) 2.3 10^3/uL (1.0-4.0); LYMPHOCYTES % (AUTO) 25 % (12-44); MEAN CORPUSCULAR HEMOGLOBIN 32 pg (25-34); MEAN CORPUSCULAR HGB CONC 33 g/dL (32-36); MEAN CORPUSCULAR VOLUME 97 fL (80-99); MEAN PLATELET VOLUME 9.8 fL (9.0-12.2); MONOCYTES # (AUTO) 0.8 10^3/uL (0.0-1.0); MONOCYTES % (AUTO) 9 % (0-12); NEUTROPHILS # (AUTO) 5.5 10^3/uL (1.8-7.8); NEUTROPHILS % (AUTO) 61 % (42-75); PLATELET COUNT 400 10^3/uL (130-400); WHITE BLOOD COUNT 9.1 10^3/uL (4.3-11.0)
[2022-05-13 17:12] LABS: BILIRUBIN,TOTAL 1.4 MG/DL (0.1-1.0)
[2022-05-13 17:14] LABS: CREATININE SERUM 1.18 MG/DL (0.60-1.30)
[2022-05-13 17:17] LABS: MAGNESIUM 2.3 MG/DL (1.6-2.4)
[2022-05-13 17:18] LABS: INR 1.1 (0.8-1.4); PROTHROMBIN TIME PATIENT 14.4 SEC (12.2-14.7)
[2022-05-13 18:48] VITALS: BP 116/75
[2022-05-14] MEDS ORDERED: DIAZ2TAB PO (20:38)
== END 2022-05-13 18:47 | disposition home or self-care (01) ==
LOC: EDUNIT# 16:12 → ER 16:14
DX: F41.9 Anxiety disorder, unspecified (principal); I10 Essential (primary) hypertension
CPT/HCPCS: 36415; 71045; 80053; 83735; 83874; 83880; 84484; 85025; 85379; 85610; 85730; 93005; 93041

== ENCOUNTER 2022-05-14 19:45 | Emergency (ER) | payer MEDICARE ==
[~2022-05-14] VITALS: Ht 167 cm; Wt 68.0 kg
[2022-05-14] MEDS ORDERED: KETOROLAC 30 MG/ML VIAL IVP ONE (20:15)
[2022-05-14 20:23] LABS: BASOPHILS # (AUTO) 0.1 10^3/uL (0.0-0.1); BASOPHILS % (AUTO) 1 % (0-10); EOSINOPHILS # (AUTO) 0.4 10^3/uL (0.0-0.3); EOSINOPHILS % (AUTO) 5 % (0-10); HEMATOCRIT 41 % (35-52); HEMOGLOBIN 13.3 g/dL (11.5-16.0); LYMPHOCYTES # (AUTO) 2.5 10^3/uL (1.0-4.0); LYMPHOCYTES % (AUTO) 26 % (12-44); MEAN CORPUSCULAR HEMOGLOBIN 32 pg (25-34); MEAN CORPUSCULAR HGB CONC 33 g/dL (32-36); MEAN CORPUSCULAR VOLUME 97 fL (80-99); MEAN PLATELET VOLUME 9.6 fL (9.0-12.2); MONOCYTES # (AUTO) 0.9 10^3/uL (0.0-1.0); MONOCYTES % (AUTO) 9 % (0-12); NEUTROPHILS # (AUTO) 5.7 10^3/uL (1.8-7.8); NEUTROPHILS % (AUTO) 59 % (42-75); PLATELET COUNT 371 10^3/uL (130-400); WHITE BLOOD COUNT 9.6 10^3/uL (4.3-11.0)
--- NOTE | 2022-05-14 20:23 | ED Neck-Back Pain/Injury ---
General Chief Complaint: Head/Cervical Problems Stated Complaint: SEVERE PAIN IN SHOULDER Nursing Triage Note: PT AMBULATORY TO ER, C/O CHRONIC L NECK/SHOULDER PAIN ONSET 2 YEARS AGO. REPORTS WAS SEEN IN ER LAST NIGHT FOR SAME S/S, WAS GIVEN VALIUM, REPORTS HELPED WITH HER PAIN. Source of Information: Patient Exam Limitations: No Limitations History of Present Illness Date Seen by Provider: May 14, 2022 Time Seen by Provider: 20:19 Initial Comments ER by private vehicle with severe left-sided neck pain. This has been chronic for 2 years but worse recently. She was seen here last night for the same. She was given a dose of Valium and states that it helped tremendously. The only thing that helps with this pain is putting significant pressure on it. No chest pain or shortness of breath nausea or sweating. That being said she does have known coronary disease and earlier this month was transferred to [facility] in [place] for evaluation for CABG but was fortunately able to undergo multivessel stenting. She is upset that her family members are not allowed to come back with her as they were allowed to last night she reports. She also does not want to provide HPI as she states "I was just here last night for all of this cant you just look at my records?". Location: C-Spine Timing/Duration: Getting Worse Severity: Severe Allergies and Home Medications Allergies Coded Allergies: No Known Drug Allergies (Unverified , 04/20/22) Patient Home Medication List Home Medication List Reviewed: Yes Aspirin (Aspirin) 81 Mg Tab.chew, 81 MG PO DAILY Prescribed by: JEFF LIM on 04/30/22 1011 Atorvastatin Calcium (Atorvastatin Calcium) 80 Mg Tablet, 80 MG PO DAILY Prescribed by: JEFF LIM on 04/30/22 1011 Carvedilol (Carvedilol) 3.125 Mg Tablet, 3.125 MG PO BID Prescribed by: JEFF LIM on 04/30/22 1011 Dicyclomine HCl (Dicyclomine HCl) 20 Mg Tablet, 20 MG PO DAILY PRN for IBS SYMPTOMS, (Reported) Entered as Reported by: SURESH LYNCH on 04/29/22 1200 Furosemide (Furosemide) 20 Mg Tablet, 20 MG PO DAILY Prescribed by: JEFF LIM on 04/30/22 1011 Isosorbide Mononitrate (Isosorbide Mononitrate ER) 30 Mg Tab.er.24h, 30 MG PO DAILY Prescribed by: JEFF LIM on 04/30/22 1011 Losartan Potassium (Losartan Potassium) 25 Mg Tablet, 25 MG PO DAILY Prescribed by: JEFF LIM on 04/30/22 1011 Melatonin (Melatonin) 10 Mg Tablet, 10 MG PO HS PRN for SLEEP, (Reported) Entered as Reported by: SURESH LYNCH on 04/29/22 1157 Potassium Chloride (Potassium Chloride) 10 Meq Tab.er.prt, 10 MEQ PO DAILY Prescribed by: JEFF LIM on 04/30/22 1011 Ticagrelor (Brilinta) 90 Mg Tablet, 90 MG PO BID Prescribed by: JEFF LIM on 04/30/22 1011 [Balance Of Nature] , 1 EA PO DAILY, (Reported) Entered as Reported by: SURESH LYNCH on 04/20/22 1558 Review of Systems Constitutional: see HPI Past Xfcqupv-Oyxane-Vxtboe Hx Patient Social History Pt feels they are or have been: No Immunizations Up To Date First/Initial COVID19 Vaccinat: UNK Second COVID19 Vaccination Jonathan: 2020 Third COVID19 Vaccination Date: 2020 Past Medical History Surgery/Hospitalization HX: CARDIAC STENT X 2 Surgeries: Yes Cardiac, Coronary Stent Respiratory: Yes Pneumonia Cardiac: Yes (LBBB; CAD WITH STENTS; EF 30-35%; CHF; NSTEMI 04/20/22) Cardiomyopathy, Chronic Edema/Swelling, Coronary Artery Disease, Heart Attack, High Cholesterol, Hypertension Genitourinary: No Gastrointestinal: No Musculoskeletal: No Endocrine: No HEENT: No Cancer: No Psychosocial: Yes Anxiety, Depression Integumentary: No Blood Disorders: Yes (ANEMIA) Family Medical History No Pertinent Family Hx, Other Conditions/Hx ECHOCARDIOGRAM 04/20/[address] 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 FLORES: CONCLUSION: 1. Ostial left main coronary artery stenosis and distal left main 2. Total occlusion in the mid LAD reconstructed by collaterals 3. Severe ostial right coronary artery and total occlusion in the mid right coronary artery reconstructed by collaterals, dominant right coronary artery 4. Congestive heart failure, acute left ventricular systolic dysfunction, ischemic cardiomyopathy ejection fraction 30 to 35% by echo. Elevated left ventricular end-diastolic pressure 5. Slightly prominent aortic arch with calcification. DISCUSSION AND RECOMMENDATION: Hospital course: Patient was started on Coreg, Entresto, Jardiance, continue with Lasix and arrangement to transfer the patient for evaluation for bypass surgery. Physical Exam Vital Signs Vital Signs - First Documented 05/14/22 20:11 Temp 36.6 Pulse 120 Resp 18 B/P (MAP) 121/77 (92) Pulse Ox 97 O2 Delivery Room Air Capillary Refill : Height, Weight, BMI Height: '" Weight: lbs. oz. kg; 24.00 BMI Method: General Appearance: No Apparent Distress, WD/WN HEENT: PERRL/EOMI, TMs Normal Neck: Full Range of Motion, Normal Inspection, Other (She has pain to the base of the neck at the left side.) Cardiovascular: Regular Rate, Rhythm, Normal Peripheral Pulses Respiratory: Normal Breath Sounds, No Accessory Muscle Use, No Respiratory Distress Gastrointestinal: Normal Bowel Sounds, Non Tender, Soft Extremity: Normal Capillary Refill, Normal Inspection Neurologic/Psychiatric: Alert, Oriented x3, No Motor/Sensory Deficits Skin: Normal Color, Warm/Dry Progress/Results/Core Measures Results/Orders Lab Results Laboratory Tests Test 05/14/22 20:08 Range/Units White Blood Count 9.6 4.3-11.0 10^3/uL Red Blood Count 4.17 3.80-5.11 10^6/uL Hemoglobin 13.3 11.5-16.0 g/dL Hematocrit 41 35-52 % Mean Corpuscular Volume 97 80-99 fL Mean Corpuscular Hemoglobin 32 25-34 pg Mean Corpuscular Hemoglobin Concent 33 32-36 g/dL Red Cell Distribution Width 13.8 10.0-14.5 % Platelet Count 371 130-400 10^3/uL Mean Platelet Volume 9.6 9.0-12.2 fL Immature Granulocyte % (Auto) 0 % Neutrophils (%) (Auto) 59 42-75 % Lymphocytes (%) (Auto) 26 12-44 % Monocytes (%) (Auto) 9 0-12 % Eosinophils (%) (Auto) 5 0-10 % Basophils (%) (Auto) 1 0-10 % Neutrophils # (Auto) 5.7 1.8-7.8 10^3/uL Lymphocytes # (Auto) 2.5 1.0-4.0 10^3/uL Monocytes # (Auto) 0.9 0.0-1.0 10^3/uL Eosinophils # (Auto) 0.4 H 0.0-0.3 10^3/uL Basophils # (Auto) 0.1 0.0-0.1 10^3/uL Immature Granulocyte # (Auto) 0.0 0.0-0.1 10^3/uL Sodium Level 136 135-145 MMOL/L Potassium Level 3.6 3.6-5.0 MMOL/L Chloride Level 102 98-107 MMOL/L Carbon Dioxide Level 20 L 21-32 MMOL/L Anion Gap 14 5-14 MMOL/L Blood Urea Nitrogen 30 H 7-18 MG/DL Creatinine 1.09 0.60-1.30 MG/DL Estimat Glomerular Filtration Rate 51 BUN/Creatinine Ratio 28 Glucose Level 145 H 70-105 MG/DL Calcium Level 8.9 8.5-10.1 MG/DL Corrected Calcium 8.8 8.5-10.1 MG/DL Total Bilirubin 1.2 H 0.1-1.0 MG/DL Aspartate Amino Transf (AST/SGOT) 23 5-34 U/L Alanine Aminotransferase (ALT/SGPT) 17 0-55 U/L Alkaline Phosphatase 71 40-136 U/L Total Protein 8.1 6.4-8.2 GM/DL Albumin 4.1 3.2-4.5 GM/DL My Orders Orders - VIELKA MORALES APRN Ketorolac Injection (Toradol Injection) (05/14/22 20:15) Diazepam Tablet (Valium Tablet) (05/14/22 20:15) Cbc With Automated Diff (05/14/22 20:13) Comprehensive Metabolic Panel (05/14/22 20:13) Ekg Tracing (05/14/22 20:13) Medications Given in ED Current Medications Medications Dose Ordered Sig/Nayeli Route Start Time Stop Time Status Last Admin Dose Admin Diazepam 5 mg ONCE ONCE PO 05/14/22 20:15 05/14/22 20:16 DC 05/14/22 20:19 5 MG Ketorolac Tromethamine 15 mg ONCE ONCE IVP 05/14/22 20:15 05/14/22 20:16 DC 05/14/22 20:18 15 MG Vital Signs/I&O 05/14/22 05/14/22 20:11 20:26 Temp 36.6 Pulse 120 105 Resp 18 B/P (MAP) 121/77 (92) 121/77 (92) Pulse Ox 97 97 O2 Delivery Room Air Room Air Blood Pressure Mean: 92 Departure Communication (Admissions) Her pain is entirely gone. Her EKG shows no change from last night. CBC is unremarkable without anemia or evidence of infection. Chemistry shows normal electrolytes. Her pain is positional as we have rolled up a towel behind her neck per her request which alleviated her pain in addition to the Valium. Impression Primary Impression: Cervicalgia Additional Impression: Torticollis Disposition: 01 HOME, SELF-CARE Condition: Stable Departure-Patient Inst. Decision time for Depature: 20:27 Referrals: SURESH PATRICK DO (PCP/Family) Primary Care Physician Patient Instructions: Neck Pain ED Scripts Diazepam (Valium) 2 Mg Tablet 2 MG PO Q8H PRN for neck pain, #4 TAB Prov: VIELKA MORALES APRN 05/14/22 VIELKA MORALES APRN May 14, 2022 20:23
[2022-05-14 20:33] LABS: ALBUMIN 4.1 GM/DL (3.2-4.5); BILIRUBIN,TOTAL 1.2 MG/DL (0.1-1.0); CALCIUM 8.9 MG/DL (8.5-10.1); CREATININE SERUM 1.09 MG/DL (0.60-1.30); POTASSIUM 3.6 MMOL/L (3.6-5.0); TOTAL PROTEIN 8.1 GM/DL (6.4-8.2)
[2022-05-14] MEDS ORDERED: DIAZ2TAB PO (20:38)
[2022-05-14 20:45] VITALS: BP 92/72
== END 2022-05-14 20:52 | disposition home or self-care (01) ==
LOC: EDUNIT# 19:45 → ER 19:46
DX: M43.6 Torticollis (principal)
CPT/HCPCS: 36415; 80053; 85025; 93005

== ENCOUNTER 2022-05-16 14:10 | Emergency (ER) | payer MEDICARE ==
[~2022-05-16] VITALS: Ht 167 cm; Wt 70.0 kg
[~2022-05-16 14:10] MED LIST changes: +DIAZ2TAB PO
[2022-05-16 14:20] VITALS: BP 136/81
[2022-05-16] MEDS ORDERED: TRIAMCINOLONE ACET (KENALOG-40) 40 MG/ML 1 ML VIAL IM ONE (14:45)
[2022-05-16] MEDS ORDERED: LIDOCAINE 1% INJ 20 ML VIAL INJ ONE (14:45)
--- NOTE | 2022-05-16 14:47 | ED Neck-Back Pain/Injury ---
General Chief Complaint: Head/Cervical Problems Stated Complaint: NECK PAIN Nursing Triage Note: PT CO OF NECK PAIN HAS BEEN SEEN IN THE ED FOR THIS YESTERDAY. HAS ONLY TAKEN MUSCLE RELAXER TODAY. Source of Information: Patient Exam Limitations: Intoxication (had taken muscle relaxer 1h prior to arrival) History of Present Illness Date Seen by Provider: May 16, 2022 Time Seen by Provider: 14:32 Initial Comments 81-year-old female presents to the emergency room with a chief complaint of left posterior base of neck/shoulder pain. She has had now 3 visits to the emergency department for the same pain. She has been given muscle relaxers and Toradol. She states she has this fairly frequently. She denies numbness tingling weakness to her left arm. No history of trauma to the area. She denies chest pain or shortness of breath. She states she took a muscle relaxer approximately an hour prior to arrival, she appears very somnolent with almost slurred speech. She denies headache, vision changes or difficulty swallowing. She states the pain is severe. Movement makes the pain worse. No fevers, chills. Recent hospitalization for acute coronary syndrome with stents placed while in [place]. States she is compliant with her daily medications. Location: C-Spine Timing/Duration: 3-4 Days Severity: Severe Pain/Injury Location: Back (left upper thoracic spine medial to the scapula) Modifying Factors: Improves With Other (pressure improves pain) Associated Symptoms: No numbness in legs/feet, No tingling in legs/feet, No sensory/motor loss, No lower back pain Allergies and Home Medications Allergies Coded Allergies: No Known Drug Allergies (Unverified , 04/20/22) Patient Home Medication List Home Medication List Reviewed: Yes Aspirin (Aspirin) 81 Mg Tab.chew, 81 MG PO DAILY Prescribed by: JEFF LIM on 04/30/22 101 Atorvastatin Calcium (Atorvastatin Calcium) 80 Mg Tablet, 80 MG PO DAILY Prescribed by: JEFF LIM on 04/30/22 101 Carvedilol (Carvedilol) 3.125 Mg Tablet, 3.125 MG PO BID Prescribed by: JEFF LIM on 04/30/22 101 Diazepam (Valium) 2 Mg Tablet, 2 MG PO Q8H PRN for neck pain Prescribed by: VIELKA MORALES on 05/14/222037 Dicyclomine HCl (Dicyclomine HCl) 20 Mg Tablet, 20 MG PO DAILY PRN for IBS SYMPTOMS, (Reported) Entered as Reported by: SURESH LYNCH on 04/29/22 1200 Furosemide (Furosemide) 20 Mg Tablet, 20 MG PO DAILY Prescribed by: JEFF LIM on 04/30/22 1011 Isosorbide Mononitrate (Isosorbide Mononitrate ER) 30 Mg Tab.er.24h, 30 MG PO DAILY Prescribed by: JEFF LIM on 04/30/22 1011 Losartan Potassium (Losartan Potassium) 25 Mg Tablet, 25 MG PO DAILY Prescribed by: JFEF LIM on 04/30/22 1011 Melatonin (Melatonin) 10 Mg Tablet, 10 MG PO HS PRN for SLEEP, (Reported) Entered as Reported by: SURESH LYNCH on 04/29/22 1157 Potassium Chloride (Potassium Chloride) 10 Meq Tab.er.prt, 10 MEQ PO DAILY Prescribed by: JEFF LIM on 04/30/22 1011 Ticagrelor (Brilinta) 90 Mg Tablet, 90 MG PO BID Prescribed by: JEFF LIM on 04/30/22 1011 [Balance Of Nature] , 1 EA PO DAILY, (Reported) Entered as Reported by: SURESH LYNCH on 04/20/22 1558 Review of Systems Constitutional: see HPI EENTM: no symptoms reported Respiratory: no symptoms reported Cardiovascular: no symptoms reported Gastrointestinal: no symptoms reported Genitourinary: no symptoms reported Musculoskeletal: back pain Skin: no symptoms reported Psychiatric/Neurological: No Symptoms Reported All Other Systems Reviewed Negative Unless Noted: Yes Past Imsfhel-Lybhqn-Yjhxvt Hx Patient Social History Tobacco Use?: No Substance use?: No Alcohol Use?: No Pt feels they are or have been: No Immunizations Up To Date First/Initial COVID19 Vaccinat: UNK Second COVID19 Vaccination Jonathan: UNK Third COVID19 Vaccination Date: UNK Past Medical History Surgery/Hospitalization HX: CARDIAC STENT X 2 Surgeries: Yes Cardiac, Coronary Stent Respiratory: Yes Pneumonia Cardiac: Yes (LBBB; CAD WITH STENTS; EF 30-35%; CHF; NSTEMI 04/20/22) Cardiomyopathy, Chronic Edema/Swelling, Coronary Artery Disease, Heart Attack, High Cholesterol, Hypertension Genitourinary: No Gastrointestinal: No Musculoskeletal: No Endocrine: No HEENT: No Cancer: No Psychosocial: Yes Anxiety, Depression Integumentary: No Blood Disorders: Yes (ANEMIA) Family Medical History No Pertinent Family Hx, Other Conditions/Hx ECHOCARDIOGRAM 04/20/[address] 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 FLORES: CONCLUSION: 1. Ostial left main coronary artery stenosis and distal left main 2. Total occlusion in the mid LAD reconstructed by collaterals 3. Severe ostial right coronary artery and total occlusion in the mid right coronary artery reconstructed by collaterals, dominant right coronary artery 4. Congestive heart failure, acute left ventricular systolic dysfunction, ischemic cardiomyopathy ejection fraction 30 to 35% by echo. Elevated left ventricular end-diastolic pressure 5. Slightly prominent aortic arch with calcification. DISCUSSION AND RECOMMENDATION: Hospital course: Patient was started on Coreg, Entresto, Jardiance, continue with Lasix and arrangement to transfer the patient for evaluation for bypass surgery. Physical Exam Vital Signs Vital Signs - First Documented 05/16/22 14:20 Temp 36.5 Pulse 114 Resp 18 B/P (MAP) 136/81 (99) Pulse Ox 98 Capillary Refill : Less Than 3 Seconds Height, Weight, BMI Height: '" Weight: lbs. oz. kg; 25.00 BMI Method: General Appearance: No Apparent Distress, WD/WN HEENT: PERRL/EOMI Neck: Full Range of Motion, Normal Inspection, Non Tender (non tender midline), Supple Cardiovascular: Regular Rate, Rhythm, Normal Peripheral Pulses Respiratory: Lungs Clear, Normal Breath Sounds, No Accessory Muscle Use, No Respiratory Distress Gastrointestinal: Normal Bowel Sounds, Soft Back: Other (tenderness to palpation right superior medial scapula. Palpable "knot" in the muscle in this are. 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 No radicular findings to the left upper extremity. No midline cervical or upper thoracic spine tenderness. No overlying rashes. Patient was treated with 10 mg triamcinolone and 2 cc of 1% plain lidocaine. A total of 3 cc infiltrated in the area of discomfort. Patient had almost immediate relief of discomfort. Vital signs remained stable. I encouraged her to follow-up with her primary care physician. All questions are sought and answered. Patient is stable for discharge Departure Impression Primary Impression: Pain of left scapula Disposition: 01 HOME, SELF-CARE Condition: Improved Departure-Patient Inst. Decision time for Depature: 15:22 Referrals: SURESH PATRICK DO (PCP/Family) Primary Care Physician Patient Instructions: Muscle and Bone Pain (DC) Add. Discharge Instructions: Use [id number] Voltaren gel, IcyHot or Biofreeze to the sore area of your left shoulder. You can also use lidocaine patches at this area. You can additionally take Tylenol 2 extra strength tablets every 6 hours as needed for pain. Alternate heat and ice to the area for pain relief as well. Please call your primary care physician tomorrow for a follow-up appointment to further investigate the cause of this discomfort in your back. Return to the emergency department for any new, concerning or emergent complaints. Images Torso/Trunk 1 - Severe, Muscle Spams, Tenderness Copy Copies To 1: SURESH PATRICK KATHRYN M MD May 16, 2022 14:47
== END 2022-05-16 15:33 | disposition home or self-care (01) ==
LOC: EDUNIT# 14:10 → ER 14:12
DX: M25.512 Pain in left shoulder (principal)
CPT/HCPCS: 99284

== ENCOUNTER 2022-05-16 20:56 | Emergency (ER) | payer MEDICARE ==
--- NOTE | 2022-05-16 21:41 | ED Neck-Back Pain/Injury ---
General Chief Complaint: Head/Cervical Problems Stated Complaint: NECK/SHOULDER/BACK PAIN Nursing Triage Note: PT AMB TO RM 8 WITH CC OF NECK PAIN. PT SEEN EARILER TODAY FOR SAME COMPLAINT. PT STATES "I JUST WANT TO BE ADMITTED AND STAY THE NIGHT HERE." PT REPORTS SHOT GIVEN TO HER EARILER TODAY DID NOT HELP AND HER PAIN IS WORSE. PT DENIES INJURY Source of Information: Patient Exam Limitations: No Limitations History of Present Illness Date Seen by Provider: May 16, 2022 Time Seen by Provider: 21:12 Initial Comments 81-year-old female presents to the ER with complaints of left-sided neck/upper back pain. Patient was seen here earlier today for the same pain. She was also seen on 05/13 and 05/14 for the same pain. Pain is located on right upper thoracic region. Denies any change this pain. States the medications that she has received has helped the pain for short period that the pain was comes back. States she received an injection at the site of the pain on her earlier visit today. Pain is mildly reproducible on palpation. She denies any fever/chills, headache, chest pain, shortness of breath, abdominal pain, nausea/vomiting. Allergies and Home Medications Allergies Coded Allergies: No Known Drug Allergies (Unverified , 04/20/22) Patient Home Medication List Home Medication List Reviewed: Yes Aspirin (Aspirin) 81 Mg Tab.chew, 81 MG PO DAILY Prescribed by: JEFF LIM on 04/30/22 1011 Atorvastatin Calcium (Atorvastatin Calcium) 80 Mg Tablet, 80 MG PO DAILY Prescribed by: JEFF LIM on 04/30/22 1011 Carvedilol (Carvedilol) 3.125 Mg Tablet, 3.125 MG PO BID Prescribed by: JEFF LIM on 04/30/22 1011 Diazepam (Valium) 2 Mg Tablet, 2 MG PO Q8H PRN for neck pain Prescribed by: VIELKA MORALES on 05/14/222037 Dicyclomine HCl (Dicyclomine HCl) 20 Mg Tablet, 20 MG PO DAILY PRN for IBS SYMPTOMS, (Reported) Entered as Reported by: SURESH LYNCH on 04/29/221199 Furosemide (Furosemide) 20 Mg Tablet, 20 MG PO DAILY Prescribed by: JEFF LIM on 04/30/22 1011 Isosorbide Mononitrate (Isosorbide Mononitrate ER) 30 Mg Tab.er.24h, 30 MG PO DAILY Prescribed by: JEFF LIM on 04/30/22 1011 Losartan Potassium (Losartan Potassium) 25 Mg Tablet, 25 MG PO DAILY Prescribed by: JEFF LIM on 04/30/22 1011 Melatonin (Melatonin) 10 Mg Tablet, 10 MG PO HS PRN for SLEEP, (Reported) Entered as Reported by: SURESH LYNCH on 04/29/22 1157 Potassium Chloride (Potassium Chloride) 10 Meq Tab.er.prt, 10 MEQ PO DAILY Prescribed by: JEFF LIM on 04/30/22 1011 Ticagrelor (Brilinta) 90 Mg Tablet, 90 MG PO BID Prescribed by: JEFF LIM on 04/30/22 1011 [Balance Of Nature] , 1 EA PO DAILY, (Reported) Entered as Reported by: SURESH LYNCH on 04/20/22 1558 Review of Systems Constitutional: see HPI Past Effoxtw-Zeglao-Fwxweo Hx Patient Social History Tobacco Use?: No Substance use?: No Alcohol Use?: No Pt feels they are or have been: No Immunizations Up To Date First/Initial COVID19 Vaccinat: UNK Second COVID19 Vaccination Jonathan: UNK Third COVID19 Vaccination Date: UNK Past Medical History Surgery/Hospitalization HX: CARDIAC STENT X 2 Surgeries: Yes Cardiac, Coronary Stent Respiratory: Yes Pneumonia Cardiac: Yes (LBBB; CAD WITH STENTS; EF 30-35%; CHF; NSTEMI 04/20/22) Cardiomyopathy, Chronic Edema/Swelling, Coronary Artery Disease, Heart Attack, High Cholesterol, Hypertension Genitourinary: No Gastrointestinal: No Musculoskeletal: No Endocrine: No HEENT: No Cancer: No Psychosocial: Yes Anxiety, Depression Integumentary: No Blood Disorders: Yes (ANEMIA) Family Medical History No Pertinent Family Hx, Other Conditions/Hx ECHOCARDIOGRAM 04/20/[address] 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 FLORES: CONCLUSION: 1. Ostial left main coronary artery stenosis and distal left main 2. Total occlusion in the mid LAD reconstructed by collaterals 3. Severe ostial right coronary artery and total occlusion in the mid right coronary artery reconstructed by collaterals, dominant right coronary artery 4. Congestive heart failure, acute left ventricular systolic dysfunction, ischemic cardiomyopathy ejection fraction 30 to 35% by echo. Elevated left ventricular end-diastolic pressure 5. Slightly prominent aortic arch with calcification. DISCUSSION AND RECOMMENDATION: Hospital course: Patient was started on Coreg, Entresto, Jardiance, continue with Lasix and arrangement to transfer the patient for evaluation for bypass surgery. Physical Exam Vital Signs Vital Signs - First Documented 05/16/22 21:06 Temp 35.6 Pulse 101 Resp 20 B/P (MAP) 117/91 (100) Pulse Ox 97 O2 Delivery Room Air Capillary Refill : Less Than 3 Seconds Height, Weight, BMI Height: '" Weight: lbs. oz. kg; BMI Method: General Appearance: Mild Distress Neck: Normal Inspection, Non Tender, Supple; No Tender Lateral, No Tender Midline Cardiovascular: No Edema, No Gallop, No JVD, No Murmur Respiratory: Lungs Clear, Normal Breath Sounds, No Accessory Muscle Use, No Respiratory Distress Back: Normal Inspection, No Vertebral Tenderness, Other (left upper thoracic point tenderness) Neurologic/Psychiatric: Alert, Oriented x3, Normal Mood/Affect Skin: Normal Color, Warm/Dry Progress/Results/Core Measures Results/Orders My Orders Orders - DU CRENSHAW APRN Diazepam Injection (Valium Injection) (05/16/22 22:00) Medications Given in ED Current Medications Medications Dose Ordered Sig/Nayeli Route Start Time Stop Time Status Last Admin Dose Admin Diazepam 2.5 mg ONCE ONCE IM 05/16/22 22:00 05/16/22 22:01 DC 05/16/22 21:59 2.5 MG Vital Signs/I&O 05/16/22 21:06 Temp 35.6 Pulse 101 Resp 20 B/P (MAP) 117/91 (100) Pulse Ox 97 O2 Delivery Room Air Blood Pressure Mean: 100 Progress Progress Note #1: Time: 21:34 Progress Note Patient seen and evaluated, resting on bed, mild distress. Left thoracic muscular pain, medial to scapula, point tenderness. No radicular findings to the left upper extremity. No midline cervical or upper thoracic spine tendern ess. No rashes noted. Based on exam and symptoms, pain is likely related to musculoskeletal pain. Patient wearing a lidocaine patch currently. Will obtain CT cervical and thoracic spine due to this being the fourth visit for the same pain, no imaging has been obtained so far. Progress Note #2: Time: 21:39 Progress Note Patient refused CT scan of cervical spine and thoracic spine. This provider to bedside to discuss why patient refused. Patient states she does not know, she states the test scares her. Informed her that the CT scan is wide open and does not cause claustrophobia. Patient does not want the test. We will give patient 1 injection of diazepam here. Departure Impression Primary Impression: Muscle pain Disposition: HOME, SELF-CARE Condition: Stable Departure-Patient Inst. Decision time for Depature: 21:40 Referrals: SURESH PATRICK DO (PCP/Family) Primary Care Physician Patient Instructions: Muscle Spasm ED Add. Discharge Instructions: You declined the CT scan to further explore the reasoning for your pain. We gave you a shot of diazepam, do not take another diazepam tonight. You are currently wearing a lidocaine patch. You can wear that patch for 12 hours. You may take Tylenol or ibuprofen as needed for pain. You may take your prescribed muscle relaxer tomorrow. Follow-up with your primary care provider regarding this pain. Return for any new, concerning, or worsening symptoms. Return for numbness or tingling in your arm or hand. All discharge instructions reviewed with patient and/or family. Voiced understanding. DU CRENSHAW APRN May 16, 2022 21:41
[2022-05-16 22:15] VITALS: BP 100/83
== END 2022-05-16 22:15 | disposition home or self-care (01) ==
LOC: EDUNIT# 20:56 → ER 20:57
DX: M54.6 Pain in thoracic spine (principal)
CPT/HCPCS: 99284

== ENCOUNTER 2022-05-19 11:39 | Emergency (ER) | payer MEDICARE ==
--- NOTE | 2022-05-19 12:31 | ED Neck-Back Pain/Injury ---
General Chief Complaint: Head/Cervical Problems Stated Complaint: NECK PAIN Nursing Triage Note: PT TO FT1 IN WITH C/O L SIDE NECK PAIN THAT RADIATES DOWN TO SHOULDER. 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 SHE STATES SHE FOLLOWED UP WITH DR. PATRICK AT [facility] YESTERDAY, AND NO TESTS WERE DONE AND NO RX GIVEN SHE TOOK 1 VALIUM 45 MINUTES AGO SHE HAS NOT TAKEN ANYTHING ELSE FOR PAIN AT ANY TIME. 6 VISITS SINCE APRIL 28, 2022--07/29 FOR THIS CHRONIC NECK PAIN, OTHER 2 VISITS WERE FOR CARDIAC ISSUES. PT IS NOT HAVING ANY CHEST PAIN OR SHORTNESS OF BREATH Allergies and Home Medications Allergies Coded Allergies: No Known Drug Allergies (Unverified , 04/20/22) Patient Home Medication List Aspirin (Aspirin) 81 Mg Tab.chew, 81 MG PO DAILY Prescribed by: JEFF LIM on 04/30/22 1011 Atorvastatin Calcium (Atorvastatin Calcium) 80 Mg Tablet, 80 MG PO DAILY Prescribed by: JEFF LIM on 04/30/22 1011 Carvedilol (Carvedilol) 3.125 Mg Tablet, 3.125 MG PO BID Prescribed by: JEFF LIM on 04/30/22 1011 Diazepam (Valium) 2 Mg Tablet, 2 MG PO Q8H PRN for neck pain Prescribed by: VIELKA MORALES on 05/14/222037 Dicyclomine HCl (Dicyclomine HCl) 20 Mg Tablet, 20 MG PO DAILY PRN for IBS SYM PTOMS, (Reported) Entered as Reported by: SURESH LYNCH on 04/29/22 1200 Furosemide (Furosemide) 20 Mg Tablet, 20 MG PO DAILY Prescribed by: JEFF LIM on 04/30/22 1011 Isosorbide Mononitrate (Isosorbide Mononitrate ER) 30 Mg Tab.er.24h, 30 MG PO DAILY Prescribed by: JEFF LIM on 04/30/22 1011 Losartan Potassium (Losartan Potassium) 25 Mg Tablet, 25 MG PO DAILY Prescribed by: JEFF LIM on 04/30/22 1011 Melatonin (Melatonin) 10 Mg Tablet, 10 MG PO HS PRN for SLEEP, (Reported) Entered as Reported by: SURESH LYNCH on 04/29/22 1157 Potassium Chloride (Potassium Chloride) 10 Meq Tab.er.prt, 10 MEQ PO DAILY Prescribed by: JEFF LIM on 04/30/22 1011 Ticagrelor (Brilinta) 90 Mg Tablet, 90 MG PO BID Prescribed by: JEFF LIM on 04/30/22 1011 [Balance Of Nature] , 1 EA PO DAILY, (Reported) Entered as Reported by: SURESH LYNCH on 04/20/22 1558 Review of Systems Constitutional: no symptoms reported Respiratory: no symptoms reported Cardiovascular: no symptoms reported Gastrointestinal: no symptoms reported Genitourinary: no symptoms reported Musculoskeletal: see HPI Skin: no symptoms reported Psychiatric/Neurological: No Symptoms Reported Past Dsmwvvf-Fdiwgn-Egvwol Hx Patient Social History Tobacco Use?: No Use of E-Cig and/or Vaping dev: No Substance use?: No Alcohol Use?: No Pt feels they are or have been: No Immunizations Up To Date Influenza Vaccine Up-to-Date: No; Not Current First/Initial COVID19 Vaccinat: UNK Second COVID19 Vaccination Jonathan: UNK Third COVID19 Vaccination Date: UNK Past Medical History Surgery/Hospitalization HX: CARDIAC STENT X 2 Surgeries: Yes Cardiac, Coronary Stent Respiratory: Yes Pneumonia Cardiac: Yes (LBBB; CAD WITH STENTS; EF 30-35%; CHF; NSTEMI 04/20/22) Cardiomyopathy, Chronic Edema/Swelling, Coronary Artery Disease, Heart Attack, High Cholesterol, Hypertension Genitourinary: No Gastrointestinal: No Musculoskeletal: No Endocrine: No HEENT: No Cancer: No Psychosocial: Yes Anxiety, Depression Integumentary: No Blood Disorders: Yes (ANEMIA) Family Medical History No Pertinent Family Hx, Other Conditions/Hx ECHOCARDIOGRAM 04/20/[address] 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 FLORES: CONCLUSION: 1. Ostial left main coronary artery stenosis and distal left main 2. Total occlusion in the mid LAD reconstructed by collaterals 3. Severe ostial right coronary artery and total occlusion in the mid right coronary artery reconstructed by collaterals, dominant right coronary artery 4. Congestive heart failure, acute left ventricular systolic dysfunction, ischemic cardiomyopathy ejection fraction 30 to 35% by echo. Elevated left ventricular end-diastolic pressure 5. Slightly prominent aortic arch with calcification. DISCUSSION AND RECOMMENDATION: Hospital course: Patient was started on Coreg, Entresto, Jardiance, continue with Lasix and arrangement to transfer the patient for evaluation for bypass surgery. Physical Exam Vital Signs Vital Signs - First Documented 05/19/22 11:40 Temp 37.0 Pulse 100 Resp 18 B/P (MAP) 154/87 (109) Capillary Refill : Height, Weight, BMI Height: '" Weight: lbs. oz. kg; BMI Method: General Appearance: No Apparent Distress, WD/WN HEENT: PERRL/EOMI Neck: Full Range of Motion, Other (DIFFUSE LEFT POSTERIOR NECK TENDERNESS, AND LEFT TRAPEZIUS MUSCLE TENDERNESS--PALPATION REPRODUCES PAIN . 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 REVIEWED TODAY'S TEST RESULTS, ANTICIPATED COURSE, MEDICATIONS, SYMPTOMATIC TREATMENT, NEED FOR FOLLOW UP AND RETURN PRECAUTIONS. 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 Moderate generalized parenchymal volume loss. No CT evidence of an acute territorial infarction. No intracranial hemorrhage, mass effect, hydrocephalus or extra-axial fluid collections. Osseous structures are intact. Paranasal sinuses and mastoids are clear. CT CERVICAL SPINE: Normal alignment. Vertebral body heights are preserved. No fractures. Dbnmsbxf-kd-pmrayxax degenerative endplate changes are greatest at C4-C6. No CT evidence of high-grade spinal canal stenosis. Moderate atherosclerotic calcifications in the carotid bifurcations. The lung apices are clear. IMPRESSION: No acute intracranial or cervical spine CT findings. Chronic findings, as above. Reviewed: Reviewed by Me Departure Impression Primary Impression: CHRONIC NECK PAIN Additional Impressions: Degenerative disc disease, cervical TRAPEZIUS MUSLE PAIN Disposition: HOME, SELF-CARE Condition: Stable Departure-Patient Inst. Decision time for Depature: 12:43 Referrals: SURESH PATRICK DO (PCP/Family) Primary Care Physician Patient Instructions: Chronic Neck Pain (DC), Degenerative Disc Disease ED, Muscle and Bone Pain (DC) Add. Discharge Instructions: MOIST HEAT TO AREA AT 20 MINUTE INTERVALS TYLENOL AND MOTRIN NEEDED FOR PAIN CONTINUE YOUR REGULAR MEDICATIONS PRESCRIBED FOLLOW UP WITH YOUR DR IN 2-3 DAYS FOR FURTHER CARE All discharge instructions reviewed with patient and/or family. Voiced understanding. Scripts Lidocaine (Lidocaine 5% Patch) 5 % Adh..patch 1 EACH TP Q12H PRN for Neuropathic pain MDD 2, #10 PATCH 2 patches max for 12 hours, then 12 hours patch-free period. Prov: GLORIA MONTERO DO 05/19/22 GLORIA MONTERO DO May 19, 2022 12:31
--- NOTE | 2022-05-19 12:39 | Diagnostic Imaging Report ---
PROCEDURE: CT head and CT cervical spine without contrast. TECHNIQUE: Multiple contiguous axial images were obtained through the brain and cervical spine without the use of intravenous contrast. Sagittal and coronal reformations through the cervical spine were then performed. Auto Exposure Controls were utilized during the CT exam to meet ALARA standards for radiation dose reduction. INDICATION: Trauma. Left-sided neck pain. Fall yesterday. COMPARISON: None. 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 Moderate generalized parenchymal volume loss. No CT evidence of an acute territorial infarction. No intracranial hemorrhage, mass effect, hydrocephalus or extra-axial fluid collections. Osseous structures are intact. Paranasal sinuses and mastoids are clear. CT CERVICAL SPINE: Normal alignment. Vertebral body heights are preserved. No fractures. Nxtmakcq-qk-numavzio degenerative endplate changes are greatest at C4-C6. No CT evidence of high-grade spinal canal stenosis. Moderate atherosclerotic calcifications in the carotid bifurcations. The lung apices are clear. IMPRESSION: No acute intracranial or cervical spine CT findings. Chronic findings, as above. Dictated by: Dictated on workstation # [id number]
[2022-05-19] MEDS ORDERED: LIDO700A45 TP (12:46)
[2022-05-19 12:59] VITALS: BP 154/87
== END 2022-05-19 12:59 | disposition home or self-care (01) ==
LOC: EDUNIT# 11:39 → ER 11:40
DX: M50.321 Other cervical disc degeneration at C4-C5 level (principal); M50.322 Other cervical disc degeneration at C5-C6 level; G89.29 Other chronic pain
CPT/HCPCS: 70450; 72125

== ENCOUNTER 2022-06-03 22:05 | Emergency (ER) | payer MEDICARE ==
[~2022-06-03] VITALS: Ht 167.7 cm; Wt 70.3 kg
[~2022-06-03 22:05] MED LIST changes: +LIDO700A45 TP
[2022-06-03 22:07] VITALS: BP 126/89
--- NOTE | 2022-06-03 22:30 | ED Respiratory ---
General Chief Complaint: General Problems/Pain Stated Complaint: SOB Nursing Triage Note: PT AMB TO RM 6 W C/O SOA SX THIS AM, PT REPORTS THIS IS ONGOING BUT WORSE TODAY. PT A&OX4, NO RESP DISTRESS NOTED. Source: patient (EXTREMELY POOR AND DIFFICULT HISTORIAN), old records (ALL PMH IS FROM OLD RECORDS) History of Present Illness Date Seen by Provider: Jun 03, 2022 Time Seen by Provider: 22:10 Initial Comments PT ARRIVES VIA POV FROM HOME, WALKS IN SLOWLY WITH A WALKER. PT STATES HER GRAND DAUGHTER LIVES WITH HER. C/O SHORTNESS OF BREATH SINCE THIS MORNING THIS IS AN ONGOING ISSUE. SHE DOES NOT HAVE HOME O2, SHE DOES NOT HAVE ANY MEDICATIONS OR INHALERS/NEBULIZERS AT HOME. SHE HAS NOT TAKEN ANYTHING FOR HER SYMPTOMS. SHE DENIES ASTHMA, EMPHYSEMA/COPD SHE DENIES CHEST PAIN, DENIES PALPITATIONS, DENIES DIZZINESS OR SYNCOPE DENIES SWELLING IN LEGS/FEET OR PAIN IN CALVES. SHE DENIES COUGH/CONGESTION OR FEVER/SWEATS/CHILLS DENIES GI SYMPTOMS DENIES PARESTHESIAS OR MOTOR DEFICITS DOES C/O CHRONIC POSTERIOR AND LATERAL NECK PAIN PT DOES NOT KNOW ANY OF HER MEDICATIONS OR WHAT SHE TAKES THEM FOR AND IS UNABLE TO STATE ANY OF HER MEDICAL PROBLEMS. SHE DOES STATE SHE HAS NOT TAKEN ANY OF HER EVENING MEDICATIONS, BUT SHE DOES NOT KNOW WHAT THOSE MEDICATIONS ARE OR WHAT THEY ARE FOR. SHE STATES "MY GRAND DAUGHTER JUST GIVES THEM TO ME" PT IS ANXIOUS, HOSTILE AT TIMES--YELLING AT STAFF, DEMANDING AND TRYING TO DICTATE ALL CARE ON ARRIVAL AND THROUGHOUT ER STAY. PT'S FIRST VISIT HERE WAS 04/20/22, AND SHE HAS HAD 8 VISITS SINCE THAT TIME, FOR THIS COMPLAINT AND VARIOUS OTHER COMPLAINTS PER OLD RECORDS, SHE DOES HAVE HISTORY OF CAD WITH STENTS--NSTEMI 04/20/22, CHF, LBBB, EF 30-35%, ANXIETY, CHRONIC NECK PAIN PCP: DR. PATRICK AT 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 Allergies and Home Medications Allergies Coded Allergies: No Known Drug Allergies (Unverified , 04/20/22) Patient Home Medication List Home Medication List Reviewed: Yes Aspirin (Aspirin) 81 Mg Tab.chew, 81 MG PO DAILY Prescribed by: JEFF LIM on 04/30/22 1011 Atorvastatin Calcium (Atorvastatin Calcium) 80 Mg Tablet, 80 MG PO DAILY Prescribed by: JEFF LIM on 04/30/22 1011 Carvedilol (Carvedilol) 3.125 Mg Tablet, 3.125 MG PO BID Prescribed by: JEFF LIM on 04/30/22 1011 Diazepam (Valium) 2 Mg Tablet, 2 MG PO Q8H PRN for neck pain Prescribed by: VIELKA MORALES on 05/14/222037 Dicyclomine HCl (Dicyclomine HCl) 20 Mg Tablet, 20 MG PO DAILY PRN for IBS SYMPTOMS, (Reported) Entered as Reported by: SURESH LYNCH on 04/29/22 1200 Furosemide (Furosemide) 20 Mg Tablet, 20 MG PO DAILY Prescribed by: JEFF LIM on 04/30/22 1011 Isosorbide Mononitrate (Isosorbide Mononitrate ER) 30 Mg Tab.er.24h, 30 MG PO DAILY Prescribed by: JEFF LIM on 04/30/22 1011 Lidocaine (Lidocaine 5% Patch) 5 % Adh..patch, 1 EACH TP Q12H PRN for Neuropathic pain Prescribed by: GLORIA MONTERO on 05/19/22 1246 Losartan Potassium (Losartan Potassium) 25 Mg Tablet, 25 MG PO DAILY Prescribed by: JEFF LIM on 04/30/22 1011 Melatonin (Melatonin) 10 Mg Tablet, 10 MG PO HS PRN for SLEEP, (Reported) Entered as Reported by: SURESH LYNCH on 04/29/22 1157 Potassium Chloride (Potassium Chloride) 10 Meq Tab.er.prt, 10 MEQ PO DAILY Prescribed by: JEFF LIM on 04/30/22 1011 Ticagrelor (Brilinta) 90 Mg Tablet, 90 MG PO BID Prescribed by: JEFF LIM on 04/30/22 1011 [Balance Of Nature] , 1 EA PO DAILY, (Reported) Entered as Reported by: SURESH LYNCH on 04/20/22 1556 Review of Systems Review of Systems Constitutional: no symptoms reported EENTM: no symptoms reported Respiratory: see HPI; No cough; short of breath Cardiovascular: no symptoms reported; No chest pain, No edema, No palpitations, No syncope, No vascular heart diseas Gastrointestinal: no symptoms reported Genitourinary: no symptoms reported Musculoskeletal: see HPI, neck pain (CHRONIC--NO DIFFERENT THAN NORMAL) Skin: no symptoms reported Psychiatric/Neurological: Anxiety; Denies Headache, Denies Numbness, Denies Paresthesia, Denies Tingling, Denies Weakness Hematologic/Lymphatic: No Symptoms Reported Immunological/Allergic: no symptoms reported Past Fgxkjzj-Zkgrmp-Zmqwyo Hx Patient Social History Tobacco Use?: No Use of E-Cig and/or Vaping dev: No Substance use?: No Alcohol Use?: No Immunizations Up To Date Influenza Vaccine Up-to-Date: No; Not Current First/Initial COVID19 Vaccinat: UNK Second COVID19 Vaccination Jonathan: UNK Third COVID19 Vaccination Date: UNK COVID19 Vaccine Gold Nib Grinder: UNK Past Medical History Surgery/Hospitalization HX: CARDIAC STENT X 2 Surgeries: Yes Cardiac, Coronary Stent Respiratory: Yes Pneumonia Cardiac: Yes (LBBB; CAD WITH STENTS; EF 30-35%; CHF; NSTEMI 04/20/22) Cardiomyopathy, Chronic Edema/Swelling, Coronary Artery Disease, Heart Attack, High Cholesterol, Hypertension Neurological: No Genitourinary: No Gastrointestinal: No Musculoskeletal: Yes (CHRONIC NECK PAIN ) Endocrine: No HEENT: No Cancer: No Psychosocial: Yes Anxiety, Depression Integumentary: No Blood Disorders: Yes (ANEMIA) Family Medical History No Pertinent Family Hx, Other Conditions/Hx ECHOCARDIOGRAM 04/20/[address] 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 FLORES: CONCLUSION: 1. Ostial left main coronary artery stenosis and distal left main 2. Total occlusion in the mid LAD reconstructed by collaterals 3. Severe ostial right coronary artery and total occlusion in the mid right coronary artery reconstructed by collaterals, dominant right coronary artery 4. Congestive heart failure, acute left ventricular systolic dysfunction, ischemic cardiomyopathy ejection fraction 30 to 35% by echo. Elevated left ventricular end-diastolic pressure 5. Slightly prominent aortic arch with calcification. DISCUSSION AND RECOMMENDATION: Hospital course: Patient was started on Coreg, Entresto, Jardiance, continue with Lasix and arrangement to transfer the patient for evaluation for bypass surgery. Physical Exam Vital Signs - First Documented 06/03/22 22:07 Temp 36.3 Pulse 86 Resp 20 B/P (MAP) 126/89 (101) Pulse Ox 99 O2 Delivery Room Air Capillary Refill : Less Than 3 Seconds Height: '" Weight: lbs. oz. kg; 24.00 BMI Method: General Appearance: WD/WN, no apparent distress, other (TALKS NON-STOP AT LENGTH, FULL SENTENCES. 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, no motor/sensory deficits, alert, oriented x 3 Skin: normal color, warm/dry Focused Exam Lactate Level 06/03/22 22:00: Lactic Acid Level 1.14 Lactic Acid Level Laboratory Tests Test 06/03/22 22:00 Lactic Acid Level 1.14 MMOL/L (0.50-2.00) Progress/Results/Core Measures Suspected Sepsis SIRS Temperature: Pulse: 86 Respiratory Rate: 20 Laboratory Tests 06/03/22 22:00: White Blood Count 10.6 Blood Pressure 126 /89 Mean: 101 06/03/22 22:00: Lactic Acid Level 1.14 Laboratory Tests 06/03/22 22:00: Creatinine 1.05, INR Comment 1.0, Platelet Count 315, Total Bilirubin 0.8 Results/Orders Lab Results Laboratory Tests Test 06/03/22 22:00 06/03/22 22:17 Range/Units White Blood Count 10.6 4.3-11.0 10^3/uL Red Blood Count 4.35 3.80-5.11 10^6/uL Hemoglobin 13.9 11.5-16.0 g/dL Hematocrit 42 35-52 % Mean Corpuscular Volume 97 80-99 fL Mean Corpuscular Hemoglobin 32 25-34 pg Mean Corpuscular Hemoglobin Concent 33 32-36 g/dL Red Cell Distribution Width 13.7 10.0-14.5 % Platelet Count 315 130-400 10^3/uL Mean Platelet Volume 9.3 9.0-12.2 fL Immature Granulocyte % (Auto) 0 % Neutrophils (%) (Auto) 63 42-75 % Lymphocytes (%) (Auto) 27 12-44 % Monocytes (%) (Auto) 7 0-12 % Eosinophils (%) (Auto) 2 0-10 % Basophils (%) (Auto) 1 0-10 % Neutrophils # (Auto) 6.7 1.8-7.8 10^3/uL Lymphocytes # (Auto) 2.9 1.0-4.0 10^3/uL Monocytes # (Auto) 0.8 0.0-1.0 10^3/uL Eosinophils # (Auto) 0.2 0.0-0.3 10^3/uL Basophils # (Auto) 0.1 0.0-0.1 10^3/uL Immature Granulocyte # (Auto) 0.0 0.0-0.1 10^3/uL Erythrocyte Sedimentation Rate 21 0-30 MM/HR Prothrombin Time 13.4 12.2-14.7 SEC INR Comment 1.0 0.8-1.4 Activated Partial Thromboplast Time 35 24-35 SEC D-Dimer 0.36 0.00-0.49 UG/ML Sodium Level 138 135-145 MMOL/L Potassium Level 3.7 3.6-5.0 MMOL/L Chloride Level 105 98-107 MMOL/L Carbon Dioxide Level 20 L 21-32 MMOL/L Anion Gap 13 5-14 MMOL/L Blood Urea Nitrogen 27 H 7-18 MG/DL Creatinine 1.05 0.60-1.30 MG/DL Estimat Glomerular Filtration Rate 53 BUN/Creatinine Ratio 26 Glucose Level 99 70-105 MG/DL Lactic Acid Level 1.14 0.50-2.00 MMOL/L Calcium Level 8.7 8.5-10.1 MG/DL Corrected Calcium 8.6 8.5-10.1 MG/DL Magnesium Level 2.5 H 1.6-2.4 MG/DL Total Bilirubin 0.8 0.1-1.0 MG/DL Aspartate Amino Transf (AST/SGOT) 24 5-34 U/L Alanine Aminotransferase (ALT/SGPT) 23 0-55 U/L Alkaline Phosphatase 79 40-136 U/L Total Creatine Kinase 39 29-168 U/L Creatine Kinase MB 1.7 <6.6 NG/ML Myoglobin 36.3 10.0-92.0 NG/ML Troponin I < 0.028 <0.028 NG/ML C-Reactive Protein High Sensitivity 0.20 0.00-0.50 MG/DL B-Type Natriuretic Peptide 119.4 H <100.0 PG/ML Total Protein 7.9 6.4-8.2 GM/DL Albumin 4.1 3.2-4.5 GM/DL Influenza Type A (RT-PCR) Not Detected Not Detecte Influenza Type B (RT-PCR) Not Detected Not Detecte SARS-CoV-2 RNA (RT-PCR) Not Detected Not Detecte My Orders Orders - GLORIA MONTERO DO Covid 19 Inhouse Test (06/03/22 22:09) Ekg Tracing (06/03/22:) O2 (06/03/22 22:09) Monitor-Rhythm Ecg Trace Only (06/03/22:) Chest 1 View, Ap/Pa Only (06/03/22 22:09) Bnp [place] (06/03/22 22:) Cbc With Automated Diff (06/03/22:) Comprehensive Metabolic Panel (06/03/22 22:) Creatine Kinase (06/03/22 22:09) Creatine Kinase Mb (06/03/22 22:09) Hs C Reactive Protein (06/03/22 22:) Fibrin Degradation Products (06/03/22 22:09) Lactic Acid Analyzer (06/03/22 22:09) Magnesium (06/03/22 22:09) Protime With Inr (06/03/22:) Partial Thromboplastin Time (06/03/22:) Erythrocyte Sedimentation Rate (06/03/22 22:09) Myoglobin Serum (06/03/22 22:09) Troponin I [place] (06/03/22 22:09) Blood Culture (06/03/22 22:09) Ed Iv/Invasive Line Start (06/03/22 22:) Ed Iv/Invasive Line Start (06/03/22 22:09) Vital Signs Adult Sepsis Patie Q15M (06/03/22 22:09) O2 (06/03/22 22:09) Remove Rings In Anticipation O (06/03/22 22:09) Influenza A And B By Pcr (06/03/22 22:09) Isolation Central Supply Req (06/03/22 22:09) Vital Signs/I&O 06/03/22 22:07 Temp 36.3 Pulse 86 Resp 20 B/P (MAP) 126/89 (101) Pulse Ox 99 O2 Delivery Room Air Capillary Refill : Less Than 3 Seconds Blood Pressure Mean: 101 Progress Note : Progress Note NO COUGH NO DYSPNEA AT ANY TIME--PT TALKS IN FULL SENTENCES WITHOUT DIFFICULTY NO HYPOXIA--O2 SATS 98-100% ON ROOM AIR THROUGHOUT ER STAY NO FEVER NO CHEST PAIN NO ARRHYTHMIAS NO ABNORMAL VITALS PT HAS NEGATIVE TROPONIN, NEGATIVE D-DIMER, NEGATIVE BNP, NORMAL WBC AND HGB NO EVIDENCE ANY ACUTE ABNORMALITIES ON CXR NO INDICATION FOR ADMIT AT THIS TIME, OR ANY ADDITIONAL STUDIES PT DOES NOT COMPLAIN OF SHORTNESS OF BREATH OR CHEST PAIN OR ANY OTHER COMPLAINTS FOR REMAINDER OF ER STAY. 2305---PT NOW SCREAMING/YELLING AND WANTS TO GO HOME. REVIEWED ALL TEST RESULTS WITH HER AND ARE REASSURING AT THIS TIME. PT THEN STATES "WELL I COULD HAVE TOLD YOU THAT--EVERYTHING'S ALWAYS FINE" PT WALKS IN AND OUT OF ER WITH HER WALKER WITHOUT ANY DYSPNEA OR ANY OTHER COMPLAINTS. REVIEWED PRIOR RECORDS, INCLUDING ER VISITS, ADMITS, H&P'S, TESTS/PROCEDURES, CONSULTS AND DISCHARGE SUMMARIES. ECG Initial ECG Impression Date: Jun 03, 2022 Initial ECG Impression Time: 22:17 Initial ECG Rate: 92 Initial ECG Rhythm: Normal Sinus Initial ECG Impression: Nonspecific Changes Initial ECG Comparisson: Unchanged Comment INTERPRETED BY ME Diagnostic Imaging Comments CXR--NO ACUTE PROCESS, PENDING RADIOLOGIST REVIEW Reviewed: Reviewed by Me Departure Impression Primary Impression: SUBJECTIVE DYSPNEA Additional Impressions: Anxiety Chronic neck pain HX OF CAD WITH STENTS Disposition: 01 HOME, SELF-CARE Condition: Stable Departure-Patient Inst. Decision time for Depature: 23:09 Referrals: SURESH PATRICK DO (PCP/Family) Primary Care Physician Patient Instructions: Anxiety, Adult ED, Shortness of Breath (Dyspnea) (DC) Add. Discharge Instructions: CONTINUE YOUR MEDICATIONS PRESCRIBED TAKE YOUR ANXIETY MEDICATION WHEN YOU GET HOME FOLLOW UP WITH DR. PATRICK THIS WEEK FOR FURTHER CARE--CALL IN THE MORNING TO SCHEDULE AN APPOINTMENT All discharge instructions reviewed with patient and/or family. Voiced understanding. GLORIA MONTERO DO Jun 03, 2022 22:30
[2022-06-03 22:33] LABS: BASOPHILS # (AUTO) 0.1 10^3/uL (0.0-0.1); BASOPHILS % (AUTO) 1 % (0-10); EOSINOPHILS # (AUTO) 0.2 10^3/uL (0.0-0.3); EOSINOPHILS % (AUTO) 2 % (0-10); HEMATOCRIT 42 % (35-52); HEMOGLOBIN 13.9 g/dL (11.5-16.0); LYMPHOCYTES # (AUTO) 2.9 10^3/uL (1.0-4.0); LYMPHOCYTES % (AUTO) 27 % (12-44); MEAN CORPUSCULAR HEMOGLOBIN 32 pg (25-34); MEAN CORPUSCULAR HGB CONC 33 g/dL (32-36); MEAN CORPUSCULAR VOLUME 97 fL (80-99); MEAN PLATELET VOLUME 9.3 fL (9.0-12.2); MONOCYTES # (AUTO) 0.8 10^3/uL (0.0-1.0); MONOCYTES % (AUTO) 7 % (0-12); NEUTROPHILS # (AUTO) 6.7 10^3/uL (1.8-7.8); NEUTROPHILS % (AUTO) 63 % (42-75); PLATELET COUNT 315 10^3/uL (130-400); WHITE BLOOD COUNT 10.6 10^3/uL (4.3-11.0)
[2022-06-03 22:42] LABS: ALBUMIN 4.1 GM/DL (3.2-4.5); CHLORIDE 105 MMOL/L (98-107); POTASSIUM 3.7 MMOL/L (3.6-5.0); SODIUM 138 MMOL/L (135-145)
[2022-06-03 22:43] LABS: CALCIUM 8.7 MG/DL (8.5-10.1)
[2022-06-03 22:45] LABS: GLUCOSE 99 MG/DL (70-105); TOTAL PROTEIN 7.9 GM/DL (6.4-8.2)
[2022-06-03 22:46] LABS: BILIRUBIN,TOTAL 0.8 MG/DL (0.1-1.0); CARBON DIOXIDE 20 MMOL/L (21-32); FIBRIN DEGRADATION PRODUCTS 0.36 UG/ML (0.00-0.49); PROTHROMBIN TIME PATIENT 13.4 SEC (12.2-14.7)
[2022-06-03 22:48] LABS: ALKALINE PHOSPHATASE 79 U/L (40-136); CREATININE SERUM 1.05 MG/DL (0.60-1.30); GFR ESTIMATED 53
[2022-06-03 22:49] LABS: BUN/CREATININE RATIO 26
[2022-06-03 22:50] LABS: ERYTHROCYTE SEDIMENTATION RATE 21 MM/HR (0-30)
[2022-06-03 22:51] LABS: ALANINE AMINOTRANSFERASE 23 U/L (0-55); MAGNESIUM 2.5 MG/DL (1.6-2.4)
[2022-06-03 22:52] LABS: CREATINE KINASE 39 U/L (29-168)
[2022-06-03 22:59] LABS: CREATINE KINASE MB 1.7 NG/ML (<6.6)
--- NOTE | 2022-06-04 05:20 | Diagnostic Imaging Report ---
Indication: Shortness of breath Portable chest 10:46 PM Heart and mediastinum are normal. Lungs are clear. There are no effusions or pneumothoraces. IMPRESSION: No acute abnormalities in the chest Dictated by: Dictated on workstation # [id number]
== END 2022-06-03 23:21 | disposition home or self-care (01) ==
LOC: ER 22:05 → EDUNIT# 22:05 → ER 23:21
DX: F41.9 Anxiety disorder, unspecified (principal); G89.29 Other chronic pain; M54.2 Cervicalgia; I25.10 Atherosclerotic heart disease of native coronary artery without angina pectoris; I10 Essential (primary) hypertension; I11.0 Hypertensive heart disease with heart failure; I50.9 Heart failure, unspecified; Z95.5 Presence of coronary angioplasty implant and graft; Z20.822 Contact with and (suspected) exposure to COVID-19
CPT/HCPCS: 36415; 71045; 80053; 82550; 82553; 83605; 83735; 83874; 83880; 84484; 85025; 85379; 85610; 85652; 85730; 86141; 87040; 87636; 93005

== ENCOUNTER 2022-06-21 11:30 | Emergency (ER) | payer MEDICARE ==
[~2022-06-21] VITALS: Ht 167.7 cm; Wt 70.3 kg
--- NOTE | 2022-06-21 11:50 | ED Neck-Back Pain/Injury ---
General Chief Complaint: Head/Cervical Problems Stated Complaint: NECK PAIN Source of Information: Patient Exam Limitations: No Limitations History of Present Illness Date Seen by Provider: Jun 21, 2022 Time Seen by Provider: 11:50 Initial Comments Patient is a 81-year-old female with a history of chronic neck pain for the past 2 years who presents to the ED for neck pain. She states she has daily neck pain. Described as a sharp pain radiating to her back. She has been seen here with multiple visits for similar pain. Currently being followed by Dr. Patrick. Scheduled to follow-up on Tuesday secondary to no pain relief with Tylenol. She states she fell 3 days ago lost her balance in the kitchen hit the back of the cabinet on her head and arms resulting in some bruising to bilateral forearms. She denied having loss of consciousness, blood thinners or severe head pain after the fall. She denies of any head pain at this time but only complaining of neck pain. The neck pain is worse with any type of movement. Ice and heat relieves her pain. Has been taken Tylenol with very minimal improvement. Denies any distal numbness and tingling, visual changes, chest pain, cough, shortness of breath, middle lower back pain, fever, vomiting, blurry vision Allergies and Home Medications Allergies Coded Allergies: No Known Drug Allergies (Unverified , 06/21/22) Patient Home Medication List Home Medication List Reviewed: Yes Aspirin (Aspirin) 81 Mg Tab.chew, 81 MG PO DAILY Prescribed by: JEFF LIM on 04/30/22 1011 Atorvastatin Calcium (Atorvastatin Calcium) 80 Mg Tablet, 80 MG PO DAILY Prescribed by: JEFF LIM on 04/30/22 1011 Carvedilol (Carvedilol) 3.125 Mg Tablet, 3.125 MG PO BID Prescribed by: JEFF LIM on 04/30/22 1011 Diazepam (Valium) 2 Mg Tablet, 2 MG PO Q8H PRN for neck pain Prescribed by: VIELKA MORALES on 05/14/222037 Dicyclomine HCl (Dicyclomine HCl) 20 Mg Tablet, 20 MG PO DAILY PRN for IBS SYMPTOMS, (Reported) Entered as Reported by: SURESH LYNCH on 04/29/221199 Furosemide (Furosemide) 20 Mg Tablet, 20 MG PO DAILY Prescribed by: JEFF LIM on 04/30/22 1011 Isosorbide Mononitrate (Isosorbide Mononitrate ER) 30 Mg Tab.er.24h, 30 MG PO DAILY Prescribed by: JEFF LIM on 04/30/22 1011 Lidocaine (Lidocaine 5% Patch) 5 % Adh..patch, 1 EACH TP Q12H PRN for Neuropathic pain Prescribed by: GLORIA MONTERO on 05/19/22 1246 Losartan Potassium (Losartan Potassium) 25 Mg Tablet, 25 MG PO DAILY Prescribed by: JEFF LIM on 04/30/22 1011 Melatonin (Melatonin) 10 Mg Tablet, 10 MG PO HS PRN for SLEEP, (Reported) Entered as Reported by: SURESH LYNCH on 04/29/22 1157 Potassium Chloride (Potassium Chloride) 10 Meq Tab.er.prt, 10 MEQ PO DAILY Prescribed by: JEFF LIM on 04/30/22 1011 Ticagrelor (Brilinta) 90 Mg Tablet, 90 MG PO BID Prescribed by: JEFF LIM on 04/30/22 1011 Tramadol HCl (Tramadol HCl) 50 Mg Tablet, 50 MG PO Q6H Prescribed by: RINKU ERNST on 06/21/22 1251 [Balance Of Nature] , 1 EA PO DAILY, (Reported) Entered as Reported by: SURESH LYNCH on 04/20/22 1558 Review of Systems Constitutional: No chills, No diaphoresis, No malaise, No weakness EENTM: No blurred vision, No double vision, No mouth pain, No mouth swelling Respiratory: No dyspnea on exertion, No orthopnea, No short of breath Cardiovascular: No chest pain Gastrointestinal: No abdominal pain, No diarrhea Genitourinary: No decreased output, No discharge Musculoskeletal: back pain, neck pain Skin: No change in color, No change in hair/nails All Other Systems Reviewed Negative Unless Noted: Yes Past Xoqddkq-Fyufja-Zqvvrk Hx Immunizations Up To Date First/Initial COVID19 Vaccinat: UNK Second COVID19 Vaccination Jonathan: UNK Third COVID19 Vaccination Date: UNK Past Medical History Surgery/Hospitalization HX: CARDIAC STENT X 2 Surgeries: Yes Cardiac, Coronary Stent Respiratory: Yes Pneumonia Cardiac: Yes (LBBB; CAD WITH STENTS; EF 30-35%; CHF; NSTEMI 04/20/22) Cardiomyopathy, Chronic Edema/Swelling, Coronary Artery Disease, Heart Attack, High Cholesterol, Hypertension Neurological: No Genitourinary: No Gastrointestinal: No Musculoskeletal: Yes (CHRONIC NECK PAIN ) Endocrine: No HEENT: No Cancer: No Psychosocial: Yes Anxiety, Depression Integumentary: No Blood Disorders: Yes (ANEMIA) Family Medical History No Pertinent Family Hx, Other Conditions/Hx ECHOCARDIOGRAM 04/20/[address] 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 FLORES: CONCLUSION: 1. Ostial left main coronary artery stenosis and distal left main 2. Total occlusion in the mid LAD reconstructed by collaterals 3. Severe ostial right coronary artery and total occlusion in the mid right coronary artery reconstructed by collaterals, dominant right coronary artery 4. Congestive heart failure, acute left ventricular systolic dysfunction, ischemic cardiomyopathy ejection fraction 30 to 35% by echo. Elevated left ventricular end-diastolic pressure 5. Slightly prominent aortic arch with calcification. DISCUSSION AND RECOMMENDATION: Hospital course: Patient was started on Coreg, Entresto, Jardiance, continue with Lasix and arrangement to transfer the patient for evaluation for bypass surgery. Physical Exam Vital Signs Vital Signs - First Documented 06/21/22 11:35 Temp 36.6 Pulse 118 Resp 16 B/P (MAP) 110/75 (87) Pulse Ox 97 O2 Delivery Room Air Capillary Refill : Height, Weight, BMI Height: '" Weight: lbs. oz. kg; 24.00 BMI Method: General Appearance: No Apparent Distress, WD/WN HEENT: PERRL/EOMI, TMs Normal, Normal ENT Inspection, Pharynx Normal Neck: Other (Bilateral cervical paraspinal muscle tenderness. No cervical midline tenderness. Negative Spurling sign. 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 Norm as Tested Skin: Normal Color, Warm/Dry Progress/Results/Core Measures Results/Orders My Orders Orders - HIMANSHU LAINEZ Ketorolac Injection (Toradol Injection) (06/21/22 12:15) Medications Given in ED Current Medications Medications Dose Ordered Sig/Nayeli Route Start Time Stop Time Status Last Admin Dose Admin Ketorolac Tromethamine 30 mg ONCE ONCE IM 06/21/22 12:15 06/21/22 12:16 DC 06/21/22 12:19 30 MG Vital Signs/I&O 06/21/22 11:35 Temp 36.6 Pulse 118 Resp 16 B/P (MAP) 110/75 (87) Pulse Ox 97 O2 Delivery Room Air Departure Communication (PCP) Reviewed old Er records including all the ER records here in the ED. she has been seen here multiple visits with lab work, CT imaging of the neck. She had a CT scan of her cervical neck without any acute fractures on May 19 2022. Degenerative disc disease noted. She has been having this daily chronic neck pain for the past few years. Worse with movement. She currently has an ice pack on. Currently being managed by Dr. Patrick her primary care physician. Typically takes Tylenol without much improvement. She states she fell 3 days ago mechanical fall hitting the back of her head and neck. She denies of any head pain but reports neck pain. Denies loss of consciousness or blood thinner. She did have some bruising to the forearm without any tenderness and moving all extremities without difficulties. Going through her med list not able to locate a blood thinner. She does take an aspirin daily. She denies blood thinner. No contusion or posterior head pain. She has bilateral cervical neck pain. Recommended CT scan head and neck secondary to post fall and tenderness. She refused. She was only requesting a Toradol shot to help with her pain. She scheduled follow-up with Dr. Patrick on Tuesday. She was requesting a few days of different pain medication. Discussed with patient we will start a low-dose pain medication for a few days until seen by Dr. Patrick. Started tramadol. She does live at home with family. Recommend monitoring and to take 1 dose every 6- 8 hours. Continue with cool compresses and warm compresses. Discussed course of action, medication and symptomatic treatment and when to return and follow- up. Impression Primary Impression: Chronic neck pain Disposition: HOME, SELF-CARE Condition: Stable Departure-Patient Inst. Decision time for Depature: 12:50 Referrals: SURESH PATRICK DO (PCP/Family) Primary Care Physician Patient Instructions: Neck Pain ED Scripts Tramadol HCl (Tramadol HCl) 50 Mg Tablet 50 MG PO Q6H, #8 TAB Prov: HIMANSHU LAINEZ 06/21/22 HIMANSHU LAINEZ Jun 21, 2022 11:50
[2022-06-21] MEDS ORDERED: KETOROLAC 30 MG/ML VIAL IM ONE (12:15)
[2022-06-21] MEDS ORDERED: TRAM50TA3 PO (12:51)
[2022-06-21 12:55] VITALS: BP 105/75
== END 2022-06-21 12:55 | disposition home or self-care (01) ==
LOC: EDUNIT# 11:30 → ER 11:32
DX: M54.2 Cervicalgia (principal); G89.29 Other chronic pain; S50.12XA Contusion of left forearm, initial encounter; S50.11XA Contusion of right forearm, initial encounter; Z79.82 Long term (current) use of aspirin; W01.198A Fall on same level from slipping, tripping and stumbling with subsequent striking against other object, initial encounter; Y92.000 Kitchen of unspecified non-institutional (private) residence as the place of occurrence of the external cause
CPT/HCPCS: 99284

== ENCOUNTER 2022-06-26 16:27 | Emergency (ER) | payer MEDICARE ==
[~2022-06-26] VITALS: Ht 167 cm; Wt 68.0 kg
[~2022-06-26 16:27] MED LIST changes: +TRAM50TA3 PO
[2022-06-26 16:34] VITALS: BP 111/68
[2022-06-26] MEDS ORDERED: KETO10TA PO (16:41)
--- NOTE | 2022-06-26 16:43 | ED Neck-Back Pain/Injury ---
General Chief Complaint: Head/Cervical Problems Stated Complaint: NECK PAIN Source of Information: Patient Exam Limitations: No Limitations History of Present Illness Date Seen by Provider: Jun 26, 2022 Time Seen by Provider: 16:29 Initial Comments 81-year-old female presents to the emergency department today for chronic neck pain. Symptoms have been present for upwards of 2 years. She states about every 2 to 3 days she has an exacerbation of her pain. This is exactly the same as previous episodes. She has had multiple imaging studies and found to have degenerative disc disease. She is requesting a refill of tramadol pills. She states she was supposed to have an appointment with Dr. Patrick last week however she had to cancel because her daughter was not available to take her as she was sick. She went to the [facility] clinic first and they said they could not refill them for her so she came here. She has no red flag symptoms to include upper or lower extremity weakness numbness or tingling, loss of bowel bladder control or saddle anesthesia. All other systems reviewed and negative except documented per HPI. Voice recognition software was used to help create this chart Allergies and Home Medications Allergies Coded Allergies: No Known Drug Allergies (Unverified , 06/21/22) Patient Home Medication List Home Medication List Reviewed: Yes Aspirin (Aspirin) 81 Mg Tab.chew, 81 MG PO DAILY Prescribed by: JEFF LIM on 04/30/22 1011 Atorvastatin Calcium (Atorvastatin Calcium) 80 Mg Tablet, 80 MG PO DAILY Prescribed by: JEFF LIM on 04/30/22 1011 Carvedilol (Carvedilol) 3.125 Mg Tablet, 3.125 MG PO BID Prescribed by: JEFF LIM on 04/30/22 1011 Diazepam (Valium) 2 Mg Tablet, 2 MG PO Q8H PRN for neck pain Prescribed by: VIELKA MORALES on 05/14/222037 Dicyclomine HCl (Dicyclomine HCl) 20 Mg Tablet, 20 MG PO DAILY PRN for IBS SYMPTOMS, (Reported) Entered as Reported by: SURESH LYNCH on 04/29/221199 Furosemide (Furosemide) 20 Mg Tablet, 20 MG PO DAILY Prescribed by: JEFF LIM on 04/30/22 1011 Isosorbide Mononitrate (Isosorbide Mononitrate ER) 30 Mg Tab.er.24h, 30 MG PO DAILY Prescribed by: JEFF LIM on 04/30/22 1011 Lidocaine (Lidocaine 5% Patch) 5 % Adh..patch, 1 EACH TP Q12H PRN for Neuropathic pain Prescribed by: GLORIA MONTERO on 05/19/22 1246 Losartan Potassium (Losartan Potassium) 25 Mg Tablet, 25 MG PO DAILY Prescribed by: JEFF LIM on 04/30/22 1011 Melatonin (Melatonin) 10 Mg Tablet, 10 MG PO HS PRN for SLEEP, (Reported) Entered as Reported by: SURESH LYNCH on 04/29/22 1157 Potassium Chloride (Potassium Chloride) 10 Meq Tab.er.prt, 10 MEQ PO DAILY Prescribed by: JEFF LIM on 04/30/22 1011 Ticagrelor (Brilinta) 90 Mg Tablet, 90 MG PO BID Prescribed by: JEFF LIM on 04/30/22 1011 Tramadol HCl (Tramadol HCl) 50 Mg Tablet, 50 MG PO Q6H Prescribed by: RINKU ERNST on 06/21/22 1251 [Balance Of Nature] , 1 EA PO DAILY, (Reported) Entered as Reported by: SURESH LYNCH on 04/20/22 1558 Review of Systems Constitutional: no symptoms reported Past Icgawox-Ylpomd-Vfqswg Hx Immunizations Up To Date First/Initial COVID19 Vaccinat: 2020 Second COVID19 Vaccination Jonathan: 2020 Third COVID19 Vaccination Date: UNK Past Medical History Surgery/Hospitalization HX: CARDIAC STENT X 2 Surgeries: Yes Cardiac, Coronary Stent Respiratory: Yes Pneumonia Cardiac: Yes (LBBB; CAD WITH STENTS; EF 30-35%; CHF; NSTEMI 04/20/22) Cardiomyopathy, Chronic Edema/Swelling, Coronary Artery Disease, Heart Attack, High Cholesterol, Hypertension Neurological: No Genitourinary: No Gastrointestinal: No Musculoskeletal: Yes (CHRONIC NECK PAIN ) Endocrine: No HEENT: No Cancer: No Psychosocial: Yes Anxiety, Depression Integumentary: No Blood Disorders: Yes (ANEMIA) Family Medical History Reviewed Nursing Family Hx No Pertinent Family Hx, Other Conditions/Hx ECHOCARDIOGRAM 04/20/[address] 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 FLORES: CONCLUSION: 1. Ostial left main coronary artery stenosis and distal left main 2. Total occlusion in the mid LAD reconstructed by collaterals 3. Severe ostial right coronary artery and total occlusion in the mid right coronary artery reconstructed by collaterals, dominant right coronary artery 4. Congestive heart failure, acute left ventricular systolic dysfunction, ischemic cardiomyopathy ejection fraction 30 to 35% by echo. Elevated left ventricular end-diastolic pressure 5. Slightly prominent aortic arch with calcification. DISCUSSION AND RECOMMENDATION: Hospital course: Patient was started on Coreg, Entresto, Jardiance, continue with Lasix and arrangement to transfer the patient for evaluation for bypass surgery. Physical Exam Vital Signs Capillary Refill : Height, Weight, BMI Height: '" Weight: lbs. oz. kg; 24.00 BMI Method: General Appearance: No Apparent Distress HEENT: Normal ENT Inspection, Pharynx Normal Neck: Normal Inspection, Supple, Other (Tenderness palpation lateral paraspinal and midline cervical spine. No skin changes. No step-offs or deformity. 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 This is an exacerbation of her chronic pain which she has frequently. Advised her on unable to refill her tramadol at this time we will give her a short course of Toradol. She has no history of renal disease and is able to take anti-inflammatory medicines per her report. Given her age and no is some risk to causing ZITA however I think a short course would likely be beneficial for her pain. She is supposed to call her primary doctor on Tuesday for likely appointment. She has had multiple imaging studies on her neck and thus imaging was considered but I do not believe it is indicated at this time. I advised she may want to consider pain management referral. She states understanding. Impression Primary Impression: Chronic neck pain Disposition: HOME, SELF-CARE Condition: Stable Departure-Patient Inst. Referrals: SURESH PATRICK DO (PCP/Family) Primary Care Physician Patient Instructions: Degenerative Disc Disease (DC) Add. Discharge Instructions: Use the provided as needed for pain. Follow-up with your doctor on Tuesday or Tuesday as discussed. Return to the emergency department for any severe concerns. All discharge instructions reviewed with patient and/or family. Voiced understanding. Scripts Ketorolac Tromethamine (Ketorolac Tromethamine) 10 Mg Tablet 10 MG PO TID for Pain for 3 Days, #9 TAB Prov: EMILY SERRA DO 06/26/22 EMILY SERRA DO Jun 26, 2022 16:43
[2022-06-26] MEDS ORDERED: KETOROLAC 15 MG/ML VIAL IM ONE (16:45)
== END 2022-06-26 16:58 | disposition home or self-care (01) ==
LOC: EDUNIT# 16:27 → ER 16:28
DX: M54.2 Cervicalgia (principal); G89.29 Other chronic pain
CPT/HCPCS: 99284

== ENCOUNTER 2022-07-17 14:33 | Emergency (ER) | payer MEDICARE ==
[~2022-07-17] VITALS: Ht 167 cm; Wt 68.0 kg
[~2022-07-17 14:33] MED LIST changes: +KETO10TA PO
--- NOTE | 2022-07-17 15:06 | ED General ---
General Chief Complaint: Respiratory Problems Stated Complaint: DIFFICULTY BREATHING|REACTION TO [facility] Nursing Triage Note: PT REPORTS TO ED FOR SHORTNESS OF BREATH. PER PT SHE FX'D TWO RIBS ON THE LEFT SIDE ON 07/05/22 DUE TO A FALL. PT HAS BEEN TAKING NORCO FOR THE PAIN. SHE WAS TOLD BY ANOTHER RN TO REPORT TO ED FOR SHORTNESS OF BREATH. PT WAS BROUGHT TO ROOM 06 VIA . 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 She has a history of chronic pain on tramadol. Also coronary artery disease recently diagnosed at [facility] with 2 stents placed within the last 2 months. Patient had a fall about 10 days ago and has "cracked ribs" on the left. She was given a prescription for hydrocodone which she has been taking. She was told by her primary care physician if she became short of breath while taking the medication to come to the emergency room. She denies anterior chest pain. No nausea or vomiting. Normal bowel movements. No urinary complaints. She states she intermittently has swelling in her lower extremities however none today. She does have slightly low blood pressure, 80s to 90s systolic. Not tachycardic. Not hypoxic. She does appear intoxicated potentially on her hydrocodone although she states the last time she took it was possibly 6 AM. Timing/Duration: 1-3 Hours Allergies and Home Medications Allergies Coded Allergies: No Known Drug Allergies (Unverified , 06/21/22) Patient Home Medication List Home Medication List Reviewed: Yes Aspirin (Aspirin) 81 Mg Tab.chew, 81 MG PO DAILY Prescribed by: JEFF LIM on 04/30/22 1011 Atorvastatin Calcium (Atorvastatin Calcium) 80 Mg Tablet, 80 MG PO DAILY Prescribed by: JEFF LIM on 04/30/22 101 Carvedilol (Carvedilol) 3.125 Mg Tablet, 3.125 MG PO BID Prescribed by: JEFF LIM on 04/30/22 101 Diazepam (Valium) 2 Mg Tablet, 2 MG PO Q8H PRN for neck pain Prescribed by: VIELKA MORALES on 05/14/222037 Dicyclomine HCl (Dicyclomine HCl) 20 Mg Tablet, 20 MG PO DAILY PRN for IBS SYMPTOMS, (Reported) Entered as Reported by: SURESH LYNCH on 04/29/22 1200 Furosemide (Furosemide) 20 Mg Tablet, 20 MG PO DAILY Prescribed by: JEFF LIM on 04/30/22 1011 Isosorbide Mononitrate (Isosorbide Mononitrate ER) 30 Mg Tab.er.24h, 30 MG PO DAILY Prescribed by: JEFF LIM on 04/30/22 1011 Ketorolac Tromethamine (Ketorolac Tromethamine) 10 Mg Tablet, 10 MG PO TID Prescribed by: EMILY SERRA MD on 06/26/22 1641 Lidocaine (Lidocaine 5% Patch) 5 % Adh..patch, 1 EACH TP Q12H PRN for Radha ropathic pain Prescribed by: GLORIA MONTERO on 05/19/22 1246 Losartan Potassium (Losartan Potassium) 25 Mg Tablet, 25 MG PO DAILY Prescribed by: JEFF LIM on 04/30/22 1011 Melatonin (Melatonin) 10 Mg Tablet, 10 MG PO HS PRN for SLEEP, (Reported) Entered as Reported by: SURESH LYNCH on 04/29/22 1157 Potassium Chloride (Potassium Chloride) 10 Meq Tab.er.prt, 10 MEQ PO DAILY Prescribed by: JEFF LIM on 04/30/22 1011 Ticagrelor (Brilinta) 90 Mg Tablet, 90 MG PO BID Prescribed by: JEFF LIM on 04/30/22 1011 Tramadol HCl (Tramadol HCl) 50 Mg Tablet, 50 MG PO Q6H Prescribed by: RINKU ERNST on 06/21/22 1251 [Balance Of Nature] , 1 EA PO DAILY, (Reported) Entered as Reported by: SURESH LYNCH on 04/20/22 6538 Review of Systems Review of Systems Constitutional: see HPI EENTM: no symptoms reported Respiratory: short of breath Cardiovascular: other (left rib pain) Gastrointestinal: no symptoms reported Genitourinary: no symptoms reported Musculoskeletal: no symptoms reported Skin: no symptoms reported All Other Systems Reviewed Negative Unless Noted: Yes Past Xehdwrb-Bxkqkl-Tbcdlv Hx Patient Social History Tobacco Use?: No Use of E-Cig and/or Vaping dev: No Substance use?: No Alcohol Use?: No Pt feels they are or have been: No Immunizations Up To Date First/Initial COVID19 Vaccinat: 2020 Second COVID19 Vaccination Jonathan: 2020 Third COVID19 Vaccination Date: 2020 Past Medical History Surgery/Hospitalization HX: CARDIAC STENT X 2 Surgeries: Yes Cardiac, Coronary Stent Respiratory: Yes Pneumonia Cardiac: Yes (LBBB; CAD WITH STENTS; EF 30-35%; CHF; NSTEMI 04/20/22) Cardiomyopathy, Chronic Edema/Swelling, Coronary Artery Disease, Heart Attack, High Cholesterol, Hypertension Neurological: No Genitourinary: No Gastrointestinal: No Musculoskeletal: Yes (CHRONIC NECK PAIN ) Endocrine: No HEENT: No Cancer: No Psychosocial: Yes Anxiety, Depression Integumentary: No Blood Disorders: Yes (ANEMIA) Family Medical History No Pertinent Family Hx, Other Conditions/Hx ECHOCARDIOGRAM 04/20/[address] 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 FLORES: CONCLUSION: 1. Ostial left main coronary artery stenosis and distal left main 2. Total occlusion in the mid LAD reconstructed by collaterals 3. Severe ostial right coronary artery and total occlusion in the mid right coronary artery reconstructed by collaterals, dominant right coronary artery 4. Congestive heart failure, acute left ventricular systolic dysfunction, ischemic cardiomyopathy ejection fraction 30 to 35% by echo. Elevated left ventricular end-diastolic pressure 5. Slightly prominent aortic arch with calcification. DISCUSSION AND RECOMMENDATION: Hospital course: Patient was started on Coreg, Entresto, Jardiance, continue with Lasix and arrangement to transfer the patient for evaluation for bypass surgery. Physical Exam Vital Signs Vital Signs - First Documented 07/17/22 14:42 Temp 36.6 Pulse 83 Resp 20 B/P (MAP) 96/50 (65) Pulse Ox 99 O2 Delivery Room Air Capillary Refill : Less Than 3 Seconds Height, Weight, BMI Height: '" Weight: lbs. oz. kg; 24.00 BMI Method: General Appearance: No Apparent Distress, WD/WN Eyes: Bilateral Eye Normal Inspection, Bilateral Eye PERRL, Bilateral Eye EOMI HEENT: PERRL/EOMI Neck: Full Range of Motion, Normal Inspection Respiratory: Lungs Clear, Normal Breath Sounds, No Accessory Muscle Use, No Respiratory Distress Cardiovascular: Regular Rate, Rhythm, Other (tender to palpation left lower ribs) Gastrointestinal: Non Tender, Soft Extremity: Normal Capillary Refill, Normal Inspection, Normal Range of Motion, Non Tender Neurologic/Psychiatric: Alert, Oriented x3, No Motor/Sensory Deficits, Normal Mood/Affect Skin: Normal Color, Warm/Dry, Other (lidocaine patch under left breast; lidocaine patch base of neck posteriorly) Progress/Results/Core Measures Suspected Sepsis SIRS Temperature: Pulse: 83 Respiratory Rate: 20 Laboratory Tests 07/17/22 15:10: White Blood Count 9.9 Blood Pressure 96 /50 Mean: 65 Laboratory Tests 07/17/22 15:10: Creatinine 0.83, INR Comment 1.0, Platelet Count 356, Total Bilirubin 1.1H Results/Orders Lab Results Laboratory Tests Test 07/17/22 15:10 Range/Units White Blood Count 9.9 4.3-11.0 10^3/uL Red Blood Count 4.20 3.80-5.11 10^6/uL Hemoglobin 13.4 11.5-16.0 g/dL Hematocrit 40 35-52 % Mean Corpuscular Volume 96 80-99 fL Mean Corpuscular Hemoglobin 32 25-34 pg Mean Corpuscular Hemoglobin Concent 33 32-36 g/dL Red Cell Distribution Width 14.2 10.0-14.5 % Platelet Count 356 130-400 10^3/uL Mean Platelet Volume 9.5 9.0-12.2 fL Immature Granulocyte % (Auto) 0 % Neutrophils (%) (Auto) 68 42-75 % Lymphocytes (%) (Auto) 18 12-44 % Monocytes (%) (Auto) 9 0-12 % Eosinophils (%) (Auto) 4 0-10 % Basophils (%) (Auto) 1 0-10 % Neutrophils # (Auto) 6.7 1.8-7.8 10^3/uL Lymphocytes # (Auto) 1.7 1.0-4.0 10^3/uL Monocytes # (Auto) 0.9 0.0-1.0 10^3/uL Eosinophils # (Auto) 0.4 H 0.0-0.3 10^3/uL Basophils # (Auto) 0.1 0.0-0.1 10^3/uL Immature Granulocyte # (Auto) 0.0 0.0-0.1 10^3/uL Prothrombin Time 13.7 12.2-14.7 SEC INR Comment 1.0 0.8-1.4 Activated Partial Thromboplast Time 35 24-35 SEC Sodium Level 140 135-145 MMOL/L Potassium Level 3.2 L 3.6-5.0 MMOL/L Chloride Level 105 98-107 MMOL/L Carbon Dioxide Level 24 21-32 MMOL/L Anion Gap 11 5-14 MMOL/L Blood Urea Nitrogen 18 7-18 MG/DL Creatinine 0.83 0.60-1.30 MG/DL Estimat Glomerular Filtration Rate 70 BUN/Creatinine Ratio 22 Glucose Level 121 H 70-105 MG/DL Calcium Level 8.8 8.5-10.1 MG/DL Corrected Calcium 8.9 8.5-10.1 MG/DL Magnesium Level 2.2 1.6-2.4 MG/DL Total Bilirubin 1.1 H 0.1-1.0 MG/DL Aspartate Amino Transf (AST/SGOT) 117 H 5-34 U/L Alanine Aminotransferase (ALT/SGPT) 115 H 0-55 U/L Alkaline Phosphatase 276 H 40-136 U/L Troponin I < 0.028 <0.028 NG/ML Total Protein 7.5 6.4-8.2 GM/DL Albumin 3.9 3.2-4.5 GM/DL My Orders Orders - SARIAH COREA MD Ekg Tracing (07/17/22 15:02) Cbc With Automated Diff (07/17/22 15:06) Magnesium (07/17/22 15:06) Chest 1 View, Ap/Pa Only (07/17/22 15:06) Comprehensive Metabolic Panel (07/17/22 15:06) Protime With Inr (07/17/22 15:06) Partial Thromboplastin Time (07/17/22 15:06) O2 (07/17/22 15:06) Monitor-Rhythm Ecg Trace Only (07/17/22 15:06) Lipid Panel (07/18/22 06:00) Ed Iv/Invasive Line Start (07/17/22 15:06) Troponin I Dina (07/17/22 15:06) Ns Iv 1000 Ml (Sodium Chloride 0.9%) (07/17/22 15:45) Vital Signs/I&O 07/17/22 14:42 Temp 36.6 Pulse 83 Resp 20 B/P (MAP) 96/50 (65) Pulse Ox 99 O2 Delivery Room Air Capillary Refill : Less Than 3 Seconds Blood Pressure Mean: 65 Progress Note : Time: 17:12 ECG Initial ECG Impression Date: Jul 17, 2022 Initial ECG Impression Time: 15:13 Initial ECG Rate: 74 Initial ECG Rhythm: Normal Sinus Comment Normal sinus rhythm without ectopy, Q waves inferiorly, low voltage across the precordial leads normal intervals Diagnostic Imaging Diagonstic Imaging: Xray Plain Films/CT/US/NM/MRI: chest Comments NAME: IVAN MENDOZA [facility] REC#: [id number] PT STATUS: REG ER : 1940 PHYSICIAN: SARIAH COREA MD ADMIT DATE: 07/17/22/ER Draft Date of Exam:07/17/22 CHEST 1 VIEW, AP/PA ONLY INDICATION: Shortness of breath. TIME OF EXAM: 3:26 PM. COMPARISON: Correlation is made with prior chest from 06/03/2022. FINDINGS: Heart size is normal. Lungs are clear. No infiltrate is seen. There is no effusion or pneumothorax. IMPRESSION: No acute cardiopulmonary process is detected. Dictated on workstation # [id number] Dict: 07/17/22 1541 Trans: 07/17/[address] [facility] [id number] Interpreted by: SIDNEY DAVIS MD Electronically signed by: Departure Impression Primary Impression: Dyspnea Qualified Codes: R06.00 - Dyspnea, unspecified Additional Impression: Elevated liver function tests Disposition: 01 HOME, SELF-CARE Condition: Stable Departure-Patient Inst. Decision time for Depature: 17:11 Referrals: SURESH PATRICK DO (PCP/Family) Primary Care Physician Patient Instructions: Liver Function Test, Shortness of Breath, Adult ED Add. Discharge Instructions: Continue all of your daily medications as prescribed. You do not need any new medications today. I suspect your symptoms are from taking the hydrocodone. Try and avoid Tylenol-containing products until you follow-up with Dr. Patrick and have your liver tests rechecked. If you develop abdominal pain, vomiting, fever or any other emergent, concerning symptoms please come back to the emergency room for reevaluation. Copy Copies To 1: SURESH PTARICK KATHRYN M MD Jul 17, 2022 15:06
[2022-07-17 15:23] LABS: BASOPHILS # (AUTO) 0.1 10^3/uL (0.0-0.1); BASOPHILS % (AUTO) 1 % (0-10); EOSINOPHILS # (AUTO) 0.4 10^3/uL (0.0-0.3); EOSINOPHILS % (AUTO) 4 % (0-10); HEMATOCRIT 40 % (35-52); HEMOGLOBIN 13.4 g/dL (11.5-16.0); LYMPHOCYTES # (AUTO) 1.7 10^3/uL (1.0-4.0); LYMPHOCYTES % (AUTO) 18 % (12-44); MEAN CORPUSCULAR HEMOGLOBIN 32 pg (25-34); MEAN CORPUSCULAR HGB CONC 33 g/dL (32-36); MEAN CORPUSCULAR VOLUME 96 fL (80-99); MEAN PLATELET VOLUME 9.5 fL (9.0-12.2); MONOCYTES # (AUTO) 0.9 10^3/uL (0.0-1.0); MONOCYTES % (AUTO) 9 % (0-12); NEUTROPHILS # (AUTO) 6.7 10^3/uL (1.8-7.8); NEUTROPHILS % (AUTO) 68 % (42-75); PLATELET COUNT 356 10^3/uL (130-400); WHITE BLOOD COUNT 9.9 10^3/uL (4.3-11.0)
[2022-07-17 15:33] LABS: ALBUMIN 3.9 GM/DL (3.2-4.5); POTASSIUM 3.2 MMOL/L (3.6-5.0)
[2022-07-17 15:34] LABS: CALCIUM 8.8 MG/DL (8.5-10.1)
[2022-07-17 15:36] LABS: TOTAL PROTEIN 7.5 GM/DL (6.4-8.2)
[2022-07-17 15:37] LABS: BILIRUBIN,TOTAL 1.1 MG/DL (0.1-1.0)
[2022-07-17 15:39] LABS: CREATININE SERUM 0.83 MG/DL (0.60-1.30); PROTHROMBIN TIME PATIENT 13.7 SEC (12.2-14.7)
[2022-07-17 15:42] LABS: MAGNESIUM 2.2 MG/DL (1.6-2.4)
[2022-07-17] MEDS ORDERED: NS IV 1000 ML 1,000 ML IV SCH (15:45)
--- NOTE | 2022-07-17 15:46 | Diagnostic Imaging Report ---
INDICATION: Shortness of breath. TIME OF EXAM: 3:26 PM. COMPARISON: Correlation is made with prior chest from 06/03/2022. FINDINGS: Heart size is normal. Lungs are clear. No infiltrate is seen. There is no effusion or pneumothorax. IMPRESSION: No acute cardiopulmonary process is detected. Dictated by: Dictated on workstation # [id number]
[2022-07-17 17:27] VITALS: BP 120/67
== END 2022-07-17 17:27 | disposition home or self-care (01) ==
LOC: EDUNIT# 14:33 → ER 14:35
DX: R06.00 Dyspnea, unspecified (principal); R79.89 Other specified abnormal findings of blood chemistry; R07.81 Pleurodynia; G89.29 Other chronic pain; Z95.5 Presence of coronary angioplasty implant and graft; Z79.891 Long term (current) use of opiate analgesic; W18.30XA Fall on same level, unspecified, initial encounter
CPT/HCPCS: 36415; 71045; 80053; 83735; 84484; 85025; 85610; 85730; 93005; 93041

== ENCOUNTER 2022-08-18 20:51 | Emergency (ER) | payer MEDICARE ==
[~2022-08-18] VITALS: Ht 167.7 cm; Wt 66.4 kg
[2022-08-18 20:53] VITALS: BP 145/82
== END 2022-08-18 21:16 | disposition left against medical advice (07) ==
LOC: EDUNIT# 20:51 → ER 20:53
DX: M25.512 Pain in left shoulder (principal); W19.XXXA Unspecified fall, initial encounter
CPT/HCPCS: 99281

== ENCOUNTER 2022-09-19 19:10 | Emergency (ER) | payer MEDICARE ==
[~2022-09-19] VITALS: Ht 172 cm; Wt 72.5 kg
[2022-09-19 19:27] VITALS: BP 112/68
[2022-09-19 19:44] LABS: BASOPHILS # (AUTO) 0.1 10^3/uL (0.0-0.1); BASOPHILS % (AUTO) 1 % (0-10); EOSINOPHILS # (AUTO) 0.3 10^3/uL (0.0-0.3); EOSINOPHILS % (AUTO) 3 % (0-10); HEMATOCRIT 39 % (35-52); HEMOGLOBIN 13.3 g/dL (11.5-16.0); LYMPHOCYTES # (AUTO) 2.8 10^3/uL (1.0-4.0); LYMPHOCYTES % (AUTO) 24 % (12-44); MEAN CORPUSCULAR HEMOGLOBIN 32 pg (25-34); MEAN CORPUSCULAR HGB CONC 34 g/dL (32-36); MEAN CORPUSCULAR VOLUME 95 fL (80-99); MEAN PLATELET VOLUME 9.8 fL (9.0-12.2); MONOCYTES % (AUTO) 8 % (0-12); NEUTROPHILS # (AUTO) 7.5 10^3/uL (1.8-7.8); NEUTROPHILS % (AUTO) 64 % (42-75); PLATELET COUNT 347 10^3/uL (130-400); WHITE BLOOD COUNT 11.7 10^3/uL (4.3-11.0)
[2022-09-19 20:03] LABS: PROTHROMBIN TIME PATIENT 13.6 SEC (12.2-14.7)
[2022-09-19 20:04] LABS: ERYTHROCYTE SEDIMENTATION RATE 44 MM/HR (0-30)
[2022-09-19 20:09] LABS: FIBRIN DEGRADATION PRODUCTS 0.19 UG/ML (0.00-0.49)
[2022-09-19 20:12] LABS: ALANINE AMINOTRANSFERASE 34 U/L (0-55); ALKALINE PHOSPHATASE 160 U/L (40-136); BILIRUBIN,TOTAL 1.3 MG/DL (0.1-1.0); BUN/CREATININE RATIO 34; CALCIUM 9.5 MG/DL (8.5-10.1); CARBON DIOXIDE 21 MMOL/L (21-32); CHLORIDE 102 MMOL/L (98-107); CREATINE KINASE 45 U/L (29-168); CREATININE SERUM 0.87 MG/DL (0.60-1.30); GFR ESTIMATED 66; GLUCOSE 130 MG/DL (70-105); LIPASE 14 U/L (8-78); MAGNESIUM 2.4 MG/DL (1.6-2.4); POTASSIUM 3.8 MMOL/L (3.6-5.0); SODIUM 137 MMOL/L (135-145); TOTAL PROTEIN 8.3 GM/DL (6.4-8.2)
[2022-09-19 20:21] LABS: CREATINE KINASE MB 0.7 NG/ML (<6.6)
--- NOTE | 2022-09-19 20:25 | ED General ---
General Chief Complaint: Respiratory Problems Stated Complaint: SOA Nursing Triage Note: PATIENT REPORTS SHE HAS BEEN SOB FOR A WHILE STATES SEEN AT URGENT CARE THREE DAYS AGO. PATIENT STATES VERY TIRED. DOESN'T REMEMBER WHEN SOB STARTED. DOESN'T REMEMBER WHAT SHE WAS TOLD AT THE CLINIC Source of Information: Patient (EXTREMELY DIFFICULT AND POOR HISTORIAN, GIVES MUCH CONFLICTING INFORMATION. ), Old Records History of Present Illness Date Seen by Provider: September 19, 2022 Allergies and Home Medications Allergies Coded Allergies: No Known Drug Allergies (Unverified , 06/21/22) Patient Home Medication List Aspirin (Aspirin) 81 Mg Tab.chew, 81 MG PO DAILY Prescribed by: JEFF LIM on 04/30/22 1011 Atorvastatin Calcium (Atorvastatin Calcium) 80 Mg Tablet, 80 MG PO DAILY Prescribed by: JEFF LIM on 04/30/22 1011 Carvedilol (Carvedilol) 3.125 Mg Tablet, 3.125 MG PO BID Prescribed by: JEFF LIM on 04/30/22 1011 Cefdinir (Cefdinir) 300 Mg Capsule, 300 MG PO BID Prescribed by: GLORIA MONTERO on 09/19/22 213 Diazepam (Valium) 2 Mg Tablet, 2 MG PO Q8H PRN for neck pain Prescribed by: VIELKA MORALES on 05/14/222037 Dicyclomine HCl (Dicyclomine HCl) 20 Mg Tablet, 20 MG PO DAILY PRN for IBS SYMPTOMS, (Reported) Entered as Reported by: SURESH LYNCH on 04/29/22 1200 Furosemide (Furosemide) 20 Mg Tablet, 20 MG PO DAILY Prescribed by: JEFF LIM on 04/30/22 1011 Isosorbide Mononitrate (Isosorbide Mononitrate ER) 30 Mg Tab.er.24h, 30 MG PO DAILY Prescribed by: JEFF LIM on 04/30/22 1011 Ketorolac Tromethamine (Ketorolac Tromethamine) 10 Mg Tablet, 10 MG PO TID Prescribed by: EMILY SERRA MD on 06/26/22 1641 Lidocaine (Lidocaine 5% Patch) 5 % Adh..patch, 1 EACH TP Q12H PRN for Neuropathic pain Prescribed by: GLORIA MONTERO on 05/19/22 1246 Losartan Potassium (Losartan Potassium) 25 Mg Tablet, 25 MG PO DAILY Prescribed by: JEFF LIM on 04/30/22 1011 Melatonin (Melatonin) 10 Mg Tablet, 10 MG PO HS PRN for SLEEP, (Reported) Entered as Reported by: SURESH LYNCH on 04/29/22 1157 Potassium Chloride (Potassium Chloride) 10 Meq Tab.er.prt, 10 MEQ PO DAILY Prescribed by: JEFF LIM on 04/30/22 1011 Ticagrelor (Brilinta) 90 Mg Tablet, 90 MG PO BID Prescribed by: JEFF LIM on 04/30/22 1011 Tramadol HCl (Tramadol HCl) 50 Mg Tablet, 50 MG PO Q6H Prescribed by: RINKU ERNST on 06/21/22 1251 [Balance Of Nature] , 1 EA PO DAILY, (Reported) Entered as Reported by: USRESH LYNCH on 04/20/22 1558 Past Itzaucp-Phrqnl-Esqiud Hx Immunizations Up To Date First/Initial COVID19 Vaccinat: 2020 Second COVID19 Vaccination Jonathan: 2020 Third COVID19 Vaccination Date: 2020 Past Medical History Surgery/Hospitalization HX: CARDIAC STENT X 2 2020 Surgeries: Yes Cardiac, Coronary Stent Respiratory: Yes Pneumonia Cardiac: Yes (LBBB; CAD WITH STENTS; EF 30-35%; CHF; NSTEMI 04/20/22) Cardiomyopathy, Chronic Edema/Swelling, Coronary Artery Disease, Heart Attack, H igh Cholesterol, Hypertension Neurological: No Genitourinary: No Gastrointestinal: No Musculoskeletal: Yes (CHRONIC NECK PAIN ) Endocrine: No HEENT: No Cancer: No Psychosocial: Yes Anxiety, Depression Integumentary: No Blood Disorders: Yes (ANEMIA) Family Medical History No Pertinent Family Hx, Other Conditions/Hx ECHOCARDIOGRAM 04/20/[address] 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 FLORES: CONCLUSION: 1. Ostial left main coronary artery stenosis and distal left main 2. Total occlusion in the mid LAD reconstructed by collaterals 3. Severe ostial right coronary artery and total occlusion in the mid right coronary artery reconstructed by collaterals, dominant right coronary artery 4. Congestive heart failure, acute left ventricular systolic dysfunction, ischemic cardiomyopathy ejection fraction 30 to 35% by echo. Elevated left ventricular end-diastolic pressure 5. Slightly prominent aortic arch with calcification. DISCUSSION AND RECOMMENDATION: Hospital course: Patient was started on Coreg, Entresto, Jardiance, continue with Lasix and arrangement to transfer the patient for evaluation for bypass surgery. Physical Exam Vital Signs Vital Signs - First Documented Capillary Refill : Less Than 3 Seconds Height, Weight, BMI Height: '" Weight: lbs. oz. kg; 24.00 BMI Method: Focused Exam Lactate Level 09/19/22 19:32: Lactic Acid Level 1.29 Lactic Acid Level Laboratory Tests Test 09/19/22 19:32 Lactic Acid Level 1.29 MMOL/L (0.50-2.00) Progress/Results/Core Measures Suspected Sepsis SIRS Temperature: Pulse: 84 Respiratory Rate: 20 Laboratory Tests 09/19/22 19:32: White Blood Count 11.7H Blood Pressure 112 /68 Mean: 83 09/19/22 19:32: Lactic Acid Level 1.29 Laboratory Tests 09/19/22 19:32: Creatinine 0.87, INR Comment 1.0, Platelet Count 347, Total Bilirubin 1.3H Results/Orders Lab Results Laboratory Tests Test 09/19/22 19:30 09/19/22 19:32 09/19/22 20:22 Range/Units Influenza Type A (RT-PCR) Not Detected Not Detecte Influenza Type B (RT-PCR) Not Detected Not Detecte SARS-CoV-2 RNA (RT-PCR) Not Detected Not Detecte White Blood Count 11.7 H 4.3-11.0 10^3/uL Red Blood Count 4.13 3.80-5.11 10^6/uL Hemoglobin 13.3 11.5-16.0 g/dL Hematocrit 39 35-52 % Mean Corpuscular Volume 95 80-99 fL Mean Corpuscular Hemoglobin 32 25-34 pg Mean Corpuscular Hemoglobin Concent 34 32-36 g/dL Red Cell Distribution Width 13.5 10.0-14.5 % Platelet Count 347 130-400 10^3/uL Mean Platelet Volume 9.8 9.0-12.2 fL Immature Granulocyte % (Auto) 0 % Neutrophils (%) (Auto) 64 42-75 % Lymphocytes (%) (Auto) 24 12-44 % Monocytes (%) (Auto) 8 0-12 % Eosinophils (%) (Auto) 3 0-10 % Basophils (%) (Auto) 1 0-10 % Neutrophils # (Auto) 7.5 1.8-7.8 10^3/uL Lymphocytes # (Auto) 2.8 1.0-4.0 10^3/uL Monocytes # (Auto) 1.0 0.0-1.0 10^3/uL Eosinophils # (Auto) 0.3 0.0-0.3 10^3/uL Basophils # (Auto) 0.1 0.0-0.1 10^3/uL Immature Granulocyte # (Auto) 0.0 0.0-0.1 10^3/uL Erythrocyte Sedimentation Rate 44 H 0-30 MM/HR Prothrombin Time 13.6 12.2-14.7 SEC INR Comment 1.0 0.8-1.4 Activated Partial Thromboplast Time 35 24-35 SEC D-Dimer 0.19 0.00-0.49 UG/ML Sodium Level 137 135-145 MMOL/L Potassium Level 3.8 3.6-5.0 MMOL/L Chloride Level 102 98-107 MMOL/L Carbon Dioxide Level 21 21-32 MMOL/L Anion Gap 14 5-14 MMOL/L Blood Urea Nitrogen 30 H 7-18 MG/DL Creatinine 0.87 0.60-1.30 MG/DL Estimat Glomerular Filtration Rate 66 BUN/Creatinine Ratio 34 Glucose Level 130 H 70-105 MG/DL Lactic Acid Level 1.29 0.50-2.00 MMOL/L Calcium Level 9.5 8.5-10.1 MG/DL Corrected Calcium 9.5 8.5-10.1 MG/DL Magnesium Level 2.4 1.6-2.4 MG/DL Total Bilirubin 1.3 H 0.1-1.0 MG/DL Aspartate Amino Transf (AST/SGOT) 42 H 5-34 U/L Alanine Aminotransferase (ALT/SGPT) 34 0-55 U/L Alkaline Phosphatase 160 H 40-136 U/L Total Creatine Kinase 45 29-168 U/L Creatine Kinase MB 0.7 <6.6 NG/ML Troponin I < 0.028 <0.028 NG/ML C-Reactive Protein High Sensitivity 1.13 H 0.00-0.50 MG/DL B-Type Natriuretic Peptide 50.6 <100.0 PG/ML Total Protein 8.3 H 6.4-8.2 GM/DL Albumin 4.0 3.2-4.5 GM/DL Lipase 14 8-78 U/L Urine Color YELLOW Urine Clarity CLEAR Urine pH 5.5 5-9 Urine Specific [place] 1.010 L 1.016-1.022 Urine Protein NEGATIVE NEGATIVE Urine Glucose (UA) 3+ H NEGATIVE Urine Ketones NEGATIVE NEGATIVE Urine Nitrite NEGATIVE NEGATIVE Urine Bilirubin NEGATIVE NEGATIVE Urine Urobilinogen 0.2 < = 1.0 MG/DL Urine Leukocyte Esterase 1+ H NEGATIVE Urine RBC (Auto) TRACE-I H NEGATIVE Urine RBC NONE /HPF Urine WBC 0-2 /HPF Urine Crystals PRESENT H /LPF Urine Amorphous Sediment FEW NICCI URATES H /LPF Urine Bacteria TRACE /HPF Urine Casts NONE /LPF Urine Mucus NEGATIVE /LPF Urine Culture Indicated NO My Orders Orders - GLORIA MONTERO DO Ed Iv/Invasive Line Start (09/19/22 19:29) Ekg Tracing (09/19/22 19:29) O2 (09/19/22 19:29) Monitor-Rhythm Ecg Trace Only (09/19/22 19:29) Bnp Dina (09/19/22 19:29) Cbc With Automated Diff (09/19/22 19:29) Comprehensive Metabolic Panel (09/19/22 19:29) Creatine Kinase (09/19/22 19:29) Creatine Kinase Mb (09/19/22 19:29) Hs C Reactive Protein (09/19/22 19:29) Fibrin Degradation Products (09/19/22 19:29) Lactic Acid Analyzer (09/19/22 19:29) Lipase (09/19/22 19:29) Magnesium (09/19/22 19:29) Protime With Inr (09/19/22 19:29) Partial Thromboplastin Time (09/19/22 19:29) Ua Culture If Indicated (09/19/22 19:29) Erythrocyte Sedimentation Rate (09/19/22 19:29) Troponin I [place] (09/19/22 19:29) Chest 1 View, Ap/Pa Only (09/19/22 19:29) Covid 19 Inhouse Test (09/19/22 19:29) Influenza A And B By Pcr (09/19/22 19:29) Isolation Central Supply Req (09/19/22 19:29) Ct [place] Chest/Noang Abd-Pelv W (09/19/22 20:16) Iohexol Injection (Omnipaque 350 Mg/Ml 1 (09/19/22 20:30) Received Contrast (Hold Metformin- Contr (09/19/22 20:30) Ns (Ivpb) (Sodium Chloride 0.9% Ivpb Bag (09/19/22 20:30) Ed Iv/Invasive Line Start (09/19/22 20:54) Ns Iv 1000 Ml (Sodium Chloride 0.9%) (09/19/22 21:00) Ceftriaxone Pre-Mix (Rocephin Pre-Mix) (09/19/22 21:30) Rx-Cefdinir Capsule (Rx-Omnicef Capsule) (09/20/22 09:00) Rx-Cefdinir Capsule (Rx-Omnicef Capsule) (09/20/22 09:00) Medications Given in ED Current Medications Medications Dose Ordered Sig/Nayeli Route Start Time Stop Time Status Last Admin Dose Admin Iohexol 100 ml ONCE ONCE IV 09/19/22 20:30 09/19/22 20:31 DC 09/19/22 20:36 64 ML Sodium Chloride 100 ml ONCE ONCE IV 09/19/22 20:30 09/19/22 20:31 DC 09/19/22 20:36 80 ML Vital Signs/I&O 09/19/22 09/19/22 19:27 19:27 Temp 37.2 Pulse 84 Resp 20 B/P (MAP) 112/68 (83) Pulse Ox 95 O2 Delivery Room Air Room Air Capillary Refill : Less Than 3 Seconds Blood Pressure Mean: 83 Progress Note : Progress Note O2 SAT 100% ON ROOM AIR NO DYSPNEA, NO HYPOXIA NO CHEST PAIN NO EVIDENCE OF ACUTE CORONARY SYNDROME OR CHF, NO P.E. OR OTHER ACUTE PULMONARY PROCESS. NO EVIDENCE OF SEPSIS Diagnostic Imaging Comments CXR--PER RADIOLOGIST REPORT AT 2104 FINDINGS: Heart size and pulmonary vascularity are within normal limits. There is no pneumothorax or significant pleural fluid. There is patchy mixed interstitial and alveolar density in the periphery of the right lung. There is no lobar consolidation. IMPRESSION: 1. Patchy density in the periphery of the right lung may represent area of pneumonitis or atypical pneumonia. 2. Follow-up would be useful. CT CHEST ANGIOGRAM--PER RADIOLOGIST REPORT AT 2119 FINDINGS: CT CHEST: There is good opacification of pulmonary arteries without intraluminal filling defect. The thoracic aorta is of normal caliber with mild to moderate atherosclerotic calcification present. There does appear to be focal stenosis of the left subclavian vein at the crossing of 1st rib and clavicle. Numerous venous collaterals are seen in the left chest wall. There are prominent interstitial markings in subpleural aspect of the lungs, bilaterally, likely representing areas of scarring. There is no focal infiltrate or evidence of mass. There is no significant pleural or pericardial fluid. There is moderate degenerative change in the right shoulder. There are multiple old nondisplaced left lateral rib fractures. IMPRESSION: No CTA evidence of pulmonary embolism. Incidental note is made of apparent left subclavian venous stenosis with numerous collaterals in the left chest wall. There is right shoulder degenerative change with numerous old left rib fractures present. CT ABDOMEN PELVIS: There is cholelithiasis without evidence of gallbladder wall thickening or pericholecystic fluid. No focal hepatic abnormality or biliary ductal dilatation is identified. There is small sliding-type hiatal hernia. No pancreatic, adrenal gland or splenic lesion is detected. Kidneys are unremarkable. There is mild to moderate aortoiliac atherosclerotic calcification. No free fluid is seen within the abdomen or pelvis. There is no evidence of pathologically enlarged adenopathy and no focal inflammation is seen. Unopacified urinary bladder is incompletely distended which limits evaluation. There is moderate lower lumbar spondylosis with grade 1 anterolisthesis of L5 on S1. IMPRESSION: Cholelithiasis without evidence of acute cholecystitis. Otherwise, no acute abnormality is seen within the abdomen or pelvis. Reviewed: Reviewed by Me Departure Impression Primary Impression: UTI (urinary tract infection) Additional Impressions: SUBJECTIVE DYSPNEA Dehydration Disposition: HOME, SELF-CARE Condition: Stable Departure-Patient Inst. Decision time for Depature: 21:32 Referrals: SURESH PATRICK DO (PCP/Family) Primary Care Physician Patient Instructions: Dehydration, Adult ED, Shortness of Breath (Dyspnea) (DC), Urinary Tract Infection, Adult ED Add. Discharge Instructions: CONTINUE YOUR REGULAR MEDICATIONS PRESCRIBED INCREASE YOUR FLUID INTAKE FOLLOW UP WITH YOUR DR THIS WEEK FOR FURTHER CARE-CALL ON TUESDAY TO SCHEDULE AN APPOINTMENT All discharge instructions reviewed with patient and/or family. Voiced understanding. Scripts Cefdinir (Cefdinir) 300 Mg Capsule 300 MG PO BID, #20 CAP Prov: GLORIA MONTERO DO 09/19/22 GLORIA MONTERO DO September 19, 2022 20:25
[2022-09-19 20:29] LABS: BILIRUBIN,URINE NEGATIVE (NEGATIVE); CLARITY,URINE CLEAR; COLOR,URINE YELLOW; GLUCOSE, URINE (UA) 3+ (NEGATIVE); KETONES,URINE NEGATIVE (NEGATIVE); LEUKOCYTE ESTERASE ,URINE 1+ (NEGATIVE); NITRITE,URINE NEGATIVE (NEGATIVE); PH,URINE 5.5 (5-9); PROTEIN,URINE NEGATIVE (NEGATIVE)
[2022-09-19] MEDS ORDERED: IOHEXOL 350 MG/ML 100 ML (OMNIPAQUE 350) VIAL IV ONE (20:30)
[2022-09-19] MEDS ORDERED: HOLD METFORMIN - RECEIVED CONTRAST 20 ML VIAL IV SCH (20:30)
[2022-09-19] MEDS ORDERED: NS 100 ML (IVPB) BAG IV ONE (20:30)
[2022-09-19 20:39] LABS: AMORPHOUS SEDIMENT,UR FEW AMOR URATES /LPF
--- NOTE | 2022-09-19 20:49 | Diagnostic Imaging Report ---
INDICATION: Dyspnea. COMPARISON: 07/17/2022. FINDINGS: Heart size and pulmonary vascularity are within normal limits. There is no pneumothorax or significant pleural fluid. There is patchy mixed interstitial and alveolar density in the periphery of the right lung. There is no lobar consolidation. IMPRESSION: 1. Patchy density in the periphery of the right lung may represent area of pneumonitis or atypical pneumonia. 2. Follow-up would be useful. Dictated by: Dictated on workstation # [id number]
[2022-09-19] MEDS ORDERED: NS IV 1000 ML 1,000 ML IV SCH (21:00)
[2022-09-19 21:09] LABS: BACTERIA,URINE TRACE /HPF; WBC,URINE 0-2 /HPF
--- NOTE | 2022-09-19 21:17 | Diagnostic Imaging Report ---
INDICATION: Dyspnea, weakness. TECHNIQUE: CTA chest, abdomen and pelvis. Thin axial sections through the chest, abdomen and pelvis are obtained following intravenous contrast bolus. Multiplanar MIP images were reconstructed and reviewed. All CT scans use one or more of the following dose optimizing techniques: automated exposure control, MA and/or KvP adjustment based on patient size and exam type or iterative reconstruction. FINDINGS: CT CHEST: There is good opacification of pulmonary arteries without intraluminal filling defect. The thoracic aorta is of normal caliber with mild to moderate atherosclerotic calcification present. There does appear to be focal stenosis of the left subclavian vein at the crossing of 1st rib and clavicle. Numerous venous collaterals are seen in the left chest wall. There are prominent interstitial markings in subpleural aspect of the lungs, bilaterally, likely representing areas of scarring. There is no focal infiltrate or evidence of mass. There is no significant pleural or pericardial fluid. There is moderate degenerative change in the right shoulder. There are multiple old nondisplaced left lateral rib fractures. IMPRESSION: No CTA evidence of pulmonary embolism. Incidental note is made of apparent left subclavian venous stenosis with numerous collaterals in the left chest wall. There is right shoulder degenerative change with numerous old left rib fractures present. CT ABDOMEN PELVIS: There is cholelithiasis without evidence of gallbladder wall thickening or pericholecystic fluid. No focal hepatic abnormality or biliary ductal dilatation is identified. There is small sliding-type hiatal hernia. No pancreatic, adrenal gland or splenic lesion is detected. Kidneys are unremarkable. There is mild to moderate aortoiliac atherosclerotic calcification. No free fluid is seen within the abdomen or pelvis. There is no evidence of pathologically enlarged adenopathy and no focal inflammation is seen. Unopacified urinary bladder is incompletely distended which limits evaluation. There is moderate lower lumbar spondylosis with grade 1 anterolisthesis of L5 on S1. IMPRESSION: Cholelithiasis without evidence of acute cholecystitis. Otherwise, no acute abnormality is seen within the abdomen or pelvis. Dictated by: Dictated on workstation # [id number]
[2022-09-19] MEDS ORDERED: cefTRIAXone PRE-MIX 50 ML IV STA (21:30)
[2022-09-19] MEDS ORDERED: CEFD300C3 PO (21:33)
[2022-09-19] MEDS ORDERED: RX-CEFDINIR 300 MG CAP PPK #2 PO ONE ×2 (21:45→21:49)
[2022-09-20] MEDS ORDERED: RX-CEFDINIR 300 MG CAP PPK #2 PO SCH ×2 (09:00)
== END 2022-09-19 21:48 | disposition home or self-care (01) ==
LOC: EDUNIT# 19:10 → ER 19:12
DX: R06.02 Shortness of breath (principal); N39.0 Urinary tract infection, site not specified; E86.0 Dehydration; Z20.822 Contact with and (suspected) exposure to COVID-19
CPT/HCPCS: 36415; 71045; 71275; 74177; 80053; 81000; 82550; 82553; 83605; 83690; 83735; 83880; 84484; 85025; 85379; 85610; 85652; 85730; 86141; 87636; 93041

== ENCOUNTER 2022-11-04 10:42 | Emergency (ER) | payer MEDICARE ==
[~2022-11-04] VITALS: Ht 167.7 cm; Wt 63.5 kg
[~2022-11-04 10:42] MED LIST changes: +ACET-2267 PO; +ACHD5005 PO; +ASPI-1238 PO; +CEFD300C3 PO; +EMPA10TA PO; +ENOX40DI8 SC; +OXC5T PO; +POTA-185 PO; +SENN-341 PO; +TRM50T PO
[2022-11-04 10:59] VITALS: BP 113/58
--- NOTE | 2022-11-04 11:42 | ED General ---
General Chief Complaint: General Problems/Pain Stated Complaint: LEG AND NECK PAIN Nursing Triage Note: PT TO ROOM 07 VIA W/C WITH C/O GEN WEAKNESS AFTER FALLING ON 09/22/22. PT DISCHARGED FROM [facility] IN [place], [place] YESTERDAY. PT WENT TO [facility] FOR REHAB AND LEFT THAT FACILITY BECAUSE SHE DID NOT LIKE IT. PT WENT TO STAY WITH FAMILY IN [facility] AND WAS TAKEN TO ED IN [place] AND THEN TO [facility] IN [place], [place]. Source of Information: Patient, Caregiver Exam Limitations: No Limitations History of Present Illness Date Seen by Provider: Nov 04, 2022 Time Seen by Provider: 11:17 Initial Comments 82-year-old female presents to the ER with granddaughter. Patient reports that she fell on September 22 and fractured her pelvis, she states "it's all been downhill from there." She states that she thinks she needs a mental evaluation because she thinks she had a mental breakdown last night. States she still has symptoms of a mental breakdown, but cannot articulate any. She states that she thinks she is confused, she is alert and oriented x4. She is able to answer all questions appropriately. She is also complaining of a bedsore on her bottom which is causing her pain. She states that this morning around 9:30 AM she had chest pain which radiated into her left shoulder, left neck, and left arm. She thinks the chest pain lasted about 3 minutes. Denies any shortness of breath with the chest pain. Her granddaughter placed a lidocaine patch on her neck this morning which has improved her pain. She denies any current pain except for the sore on her bottom. She reports that earlier when she went to the bathroom she noticed one episode of bright red blood when wiping, she is uncertain where the bleeding was coming from. She reports generalized weakness since the fall. Patient was able to transfer self from wheelchair to bed and turn herself in bed. Granddaughter states that patient is able to walk with minimal assistance. She was recently in 2 different nursing homes, she left 1 because she did not like it. She was discharged from acute care rehab in [place] yesterday. Patient does not think she was ready to leave acute care rehab. She states that she is here because she needs more help, she states that she feels as though she is a bother to her granddaughter. Granddaughter states that patient is not happy with her care. Patient is verbally aggressive towards her granddaughter during assessment, she yelled at her granddaughter multiple times during evaluation. Patient denies any current pain including chest pain, she denies fever, shortness of air, dysuria. Patient's granddaughter states that last night patient seemed to wake up from a nightmare, stating that she saw multiple of her family members. She then seemed to have a panic attack, was crying a lot and having trouble breathing due to nasal congestion. This is likely the mental breakdown the patient was talking about. Granddaughter is asking about mental health facility placement. Patient denies any suicidal or homicidal ideations, she is not acutely psychotic. Patient would likely not meet requirements for admission to a mental health facility. Patient states her main concern today is that she wants help, wants someone to talk to, and wants compassion. Long discussion was had with patient regarding options for care. Patient states the social worker assistant from the acute care rehab is working on home health for her. I discussed the options of going into a alf, patient's is adamant that she does not want to go to a alf. We also discussed her seeing a therapist for her depression and anxiety. Granddaughter states that patient went to a therapist 1 time and refused to go back. I discussed with patient that we have provided her multiple options for her and she seems to refused the options. Allergies and Home Medications Allergies Coded Allergies: No Known Drug Allergies (Unverified , 06/21/22) Patient Home Medication List Home Medication List Reviewed: Yes Acetaminophen (Tylenol Extra Strength) 500 Mg Tablet, 1,000 MG PO Q8H PRN for PAIN-MILD (1-4) Prescribed by: CODI MAE on 10/05/22928 Aspirin (Aspirin EC) 81 Mg Tablet.dr, 81 MG PO DAILY Prescribed by: CODI MAE on 10/05/22928 Atorvastatin Calcium (Atorvastatin Calcium) 80 Mg Tablet, 80 MG PO DAILY Prescribed by: CODI MAE on 10/05/22928 Carvedilol (Carvedilol) 3.125 Mg Tablet, 3.125 MG PO BID Prescribed by: CODI MAE on 10/05/22928 Empagliflozin (Jardiance) 10 Mg Tablet, 10 MG PO DAILY Prescribed by: CODI MAE on 10/05/22928 Enoxaparin Sodium (Enoxaparin Sodium) 40 Mg/0.4 Ml Syringe, 40 MG SC Q24H Prescribed by: CODI MAE on 10/05/22928 Furosemide (Furosemide) 20 Mg Tablet, 20 MG PO DAILY Prescribed by: CODI MAE on 10/05/22928 Lidocaine (Lidocaine 5% Patch) 5 % Adh..patch, 1 EACH TP DAILY Prescribed by: CODI MAE on 10/05/22928 Losartan Potassium (Losartan Potassium) 25 Mg Tablet, 25 MG PO DAILY Prescribed by: CODI MAE on 10/05/22928 Oxycodone Hcl (Oxyir Tablet) 5 Mg Tab, 5 MG PO Q4HR PRN for PAIN-SEE DOSE INSTRUCTIONS Prescribed by: CODI MAE on 10/05/22928 Potassium Chloride (K-Tab ER) 10 Meq Tablet.er, 10 MEQ PO DAILY Prescribed by: CODI MAE on 10/05/22928 Sennosides (Senna Lax) 8.6 Mg Tablet, 8.6 MG PO BID Prescribed by: CODI MAE on 10/05/22928 Ticagrelor (Brilinta) 90 Mg Tablet, 90 MG PO BID Prescribed by: CODI MAE on 10/05/22928 Tramadol HCl (Tramadol HCl) 50 Mg Tablet, 50 MG PO TID PRN for PAIN-MODERATE (5- 7) Prescribed by: CODI MAE on 10/05/22928 Review of Systems Review of Systems Constitutional: see HPI Past Memrfxj-Aqqxxc-Migyau Hx Patient Social History Tobacco Use?: No Smoking Status: Never a Smoker Smokeless Tobacco Frequency: Never a User Use of E-Cig and/or Vaping dev: No Use of E-Cig and/or Vaping Isai: Never a User Substance use?: No Alcohol Use?: No Pt feels they are or have been: No Immunizations Up To Date First/Initial COVID19 Vaccinat: 2020 Second COVID19 Vaccination Jonathan: 2020 Third COVID19 Vaccination Date: 2020 Past Medical History Surgery/Hospitalization HX: CARDIAC STENT X 2 2020 Surgeries: Yes Cardiac, Coronary Stent Respiratory: Yes Pneumonia Cardiac: Yes (LBBB; CAD WITH STENTS; EF 30-35%; CHF; NSTEMI 04/20/22) Cardiomyopathy, Chronic Edema/Swelling, Coronary Artery Disease, Heart Attack, High Cholesterol, Hypertension Neurological: No Genitourinary: No Gastrointestinal: No Musculoskeletal: Yes (CHRONIC NECK PAIN ) Endocrine: No HEENT: No Cancer: No Psychosocial: Yes Anxiety, Depression Integumentary: No Blood Disorders: Yes (ANEMIA) Family Medical History No Pertinent Family Hx, Other Conditions/Hx Physical Exam Vital Signs Vital Signs - First Documented 11/04/22 10:59 Temp 36.5 Pulse 78 Resp 17 B/P (MAP) 113/58 (76) O2 Delivery Room Air Capillary Refill : Less Than 3 Seconds Height, Weight, BMI Height: '" Weight: lbs. oz. kg; 22.00 BMI Method: General Appearance: No Apparent Distress, WD/WN Neck: Normal Inspection, Supple Respiratory: Lungs Clear, Normal Breath Sounds, No Accessory Muscle Use, No Respiratory Distress Cardiovascular: Regular Rate, Rhythm Extremity: Normal Inspection, Normal Range of Motion Neurologic/Psychiatric: Alert, Normal Mood/Affect Skin: Warm/Dry, Erythema (Coccyx region) Progress/Results/Core Measures Suspected Sepsis SIRS Temperature: Pulse: 78 Respiratory Rate: 17 Blood Pressure 113 /58 Mean: 76 Results/Orders Vital Signs/I&O 11/04/22 10:59 Temp 36.5 Pulse 78 Resp 17 B/P (MAP) 113/58 (76) O2 Delivery Room Air Capillary Refill : Less Than 3 Seconds Blood Pressure Mean: 76 Progress Note : Progress Note Patient seen and evaluated, resting comfortably in bed, no acute distress. Reddened area noted to coccyx region, no open areas, no signs of infection. Patient instructed that she should continue to use the cream, and she should try to keep pressure off of her buttocks by lying on her sides. Patient states her main concern today is that she wants help, wants someone to talk to, and wants compassion. Long discussion was had with patient regarding options for care. Patient states that she has home health that is supposed to be coming at some point. I discussed the options of going into a alf since patient complains of weakness and difficulty caring for self, patient's is adamant that she does not want to go to a alf. Patient reports weakness, but is able to transfer self from wheelchair to bed, is able to turn herself in bed without assistance. Granddaughter states patient is also able to walk with minimal assistance. We also discussed her seeing a therapist for her depression and anxiety. Granddaughter states that patient went to a therapist 1 time and refused to go back. I discussed with patient that we have provided her multiple options for her and she is refusing help. I discussed with patient that I would like to obtain some blood work to evaluate her chest pain and to perform a pelvic and rectal exam to assess for bleeding in that region. Patient states she would rather just go home she does not want an evaluation. I discussed the risks of leaving AGAINST MEDICAL ADVICE with patient. I discussed that if the chest pain was related to her heart, she could . Patient does have a history of heart failure and NSTEMI. I also discussed that bleeding from her rectum or vagina could be caused from cancer and that she needs to be evaluated for this. Patient states she still would like to leave AGAINST MEDICAL ADVICE without a full evaluation. Departure Impression Primary Impression: Chest pain Additional Impressions: Self-care deficit Pressure injury, stage 1 Qualified Codes: L89.151 - Pressure ulcer of sacral region, stage 1 Disposition: 01 HOME, SELF-CARE Condition: Against Medical Advice Departure-Patient Inst. Decision time for Depature: 11:37 Referrals: SURESH PATRICK DO (PCP/Family) Primary Care Physician Patient Instructions: Chest Pain (DC) Add. Discharge Instructions: You are leaving AGAINST MEDICAL ADVICE prior to an appropriate evaluation. If you are needing assistance at home, home health can provide assistance. If home health is not enough, you may need alf placement, although you do have stated that you do not want this. If your chest pain is from a heart attack, you could , we were unable to evaluate this since you refused lab work. If you were bleeding is from your rectum or vagina, this could indicate cancer. We were unable to evaluate this as well. Continue to put cream on the sore on your bottom, try to keep pressure off of the sore is much as possible. You can relieve pressure by laying on your side, and placing a pillow behind your back. Follow-up with a therapist and your primary care provider. Discuss options for help with your primary care provider. Your primary care provider can also evaluate the bleeding you are having. Return for severe chest pain, significant vaginal or rectal bleeding, or any other new, concerning, or worsening symptoms. All discharge instructions reviewed with patient and/or family. Voiced understanding. DU LINARES APRN Nov 04, 2022 11:42
== END 2022-11-04 10:46 | disposition home or self-care (01) ==
LOC: EDUNIT# 10:42 → ER 10:43
DX: L89.151 Pressure ulcer of sacral region, stage 1 (principal); R07.9 Chest pain, unspecified; Z74.1 Need for assistance with personal care
CPT/HCPCS: 99281

== ENCOUNTER 2022-11-05 08:00 | Emergency (ER) | payer MEDICARE ==
[~2022-11-05] VITALS: Ht 167 cm; Wt 65.7 kg
[2022-11-05 08:05] VITALS: BP 132/72
--- NOTE | 2022-11-05 08:14 | ED Neck-Back Pain/Injury ---
General Chief Complaint: Head/Cervical Problems Stated Complaint: NECK PAIN Source of Information: Patient Exam Limitations: No Limitations History of Present Illness Date Seen by Provider: Nov 05, 2022 Time Seen by Provider: 08:04 Initial Comments 82-year-old female presents to the emergency department today for left-sided neck pain. She states "I have this thing with my neck that has been going on for many years and it flares every now and then." She states she is out of home pain medication which she takes regularly and has been out for several days. She has been using Tylenol without any relief of her pain. She denies any fevers or chills. No new injuries. No upper or lower extremity weakness numbness or tingling. Record review shows that she was here yesterday for chest pain and left AGAINST MEDICAL ADVICE. She denies any chest pain or shortness of breath today. All other systems reviewed and negative except documented per HPI. Voice recognition software was used to help create this chart Allergies and Home Medications Allergies Coded Allergies: No Known Drug Allergies (Unverified , 06/21/22) Patient Home Medication List Home Medication List Reviewed: Yes Acetaminophen (Tylenol Extra Strength) 500 Mg Tablet, 1,000 MG PO Q8H PRN for PAIN-MILD (1-4) Prescribed by: CODI MAE on 10/05/22928 Aspirin (Aspirin EC) 81 Mg Tablet.dr, 81 MG PO DAILY Prescribed by: CODI MAE on 10/05/22928 Atorvastatin Calcium (Atorvastatin Calcium) 80 Mg Tablet, 80 MG PO DAILY Prescribed by: CODI MAE on 10/05/22928 Carvedilol (Carvedilol) 3.125 Mg Tablet, 3.125 MG PO BID Prescribed by: CODI MAE on 10/05/22928 Empagliflozin (Jardiance) 10 Mg Tablet, 10 MG PO DAILY Prescribed by: CODI MAE on 10/05/22928 Enoxaparin Sodium (Enoxaparin Sodium) 40 Mg/0.4 Ml Syringe, 40 MG SC Q24H Prescribed by: CODI MAE on 10/05/22928 Furosemide (Furosemide) 20 Mg Tablet, 20 MG PO DAILY Prescribed by: CODI MAE on 10/05/22928 Lidocaine (Lidocaine 5% Patch) 5 % Adh..patch, 1 EACH TP DAILY Prescribed by: CODI MAE on 10/05/22928 Losartan Potassium (Losartan Potassium) 25 Mg Tablet, 25 MG PO DAILY Prescribed by: CODI MAE on 10/05/22928 Oxycodone Hcl (Oxyir Tablet) 5 Mg Tab, 5 MG PO Q4HR PRN for PAIN-SEE DOSE INSTRUCTIONS Prescribed by: CODI MAE on 10/05/22928 Potassium Chloride (K-Tab ER) 10 Meq Tablet.er, 10 MEQ PO DAILY Prescribed by: CODI MAE on 10/05/22928 Sennosides (Senna Lax) 8.6 Mg Tablet, 8.6 MG PO BID Prescribed by: CODI MAE on 10/05/22928 Ticagrelor (Brilinta) 90 Mg Tablet, 90 MG PO BID Prescribed by: CODI MAE on 10/05/22928 Tramadol HCl (Tramadol HCl) 50 Mg Tablet, 50 MG PO TID PRN for PAIN-MODERATE (5- 7) Prescribed by: CODI MAE on 10/05/22928 Review of Systems Constitutional: see HPI Past Pdenhrj-Xhjyzj-Vfvirp Hx Patient Social History Tobacco Use?: No Substance use?: No Alcohol Use?: No Pt feels they are or have been: No Immunizations Up To Date First/Initial COVID19 Vaccinat: RECEIVED, UNK WHEN Second COVID19 Vaccination Jonathan: 2020 Third COVID19 Vaccination Date: 2020 COVID19 Vaccine Cloth Weigher: UNK Past Medical History Surgery/Hospitalization HX: CARDIAC STENT X 2 2020 Surgeries: Yes Cardiac, Coronary Stent Respiratory: Yes Pneumonia Cardiac: Yes (LBBB; CAD WITH STENTS; EF 30-35%; CHF; NSTEMI 04/20/22) Cardiomyopathy, Chronic Edema/Swelling, Coronary Artery Disease, Heart Attack, High Cholesterol, Hypertension Neurological: No Genitourinary: No Gastrointestinal: No Musculoskeletal: Yes (CHRONIC NECK PAIN ) Endocrine: No HEENT: No Cancer: No Psychosocial: Yes Anxiety, Depression Integumentary: No Blood Disorders: Yes (ANEMIA) Family Medical History No Pertinent Family Hx, Other Conditions/Hx Physical Exam Vital Signs Capillary Refill : Height, Weight, BMI Height: '" Weight: lbs. oz. kg; 23.00 BMI Method: General Appearance: No Apparent Distress, WD/WN HEENT: Normal ENT Inspection, Pharynx Normal Neck: Full Range of Motion, Normal Inspection, Non Tender, Supple, Other (I am unable to reproduce any pain on exam today) Cardiovascular: Regular Rate, Rhythm, No Murmur, Normal Peripheral Pulses Respiratory: Chest Non Tender, Lungs Clear, Normal Breath Sounds, No Respiratory Distress Gastrointestinal: Normal Bowel Sounds, No Organomegaly, Non Tender, Soft Back: Normal Inspection, No Vertebral Tenderness Neurologic/Psychiatric: Alert, Oriented x3 Skin: Normal Color, Warm/Dry Progress/Results/Core Measures Results/Orders My Orders Orders - EMILY SERRA DO Hydrocodone/Apap 5/325 Tablet (Lortab 5 (11/05/22 08:15) Departure Communication (Admissions) Patient is hemodynamically stable. She tells me she has longstanding neck pain and it flares every now and again and this is exactly the same as previous flares. She ran out of pain medication several days ago that she typically takes chronically from her primary care doctor. She is requesting "a shot for pain." She also requests a refill her chronic pain medications. I advised her that I was willing to give her a single p.o. hydrocodone however if you needed any refills of pain medication she would need follow-up with her primary care doctor. She has no new injury, no red flag symptoms and no other concerns at this time. She does plead with me to admit her to the hospital and I informed her that there is no indication for admission for chronic pain. She states understanding. She will be discharged home in stable condition. Impression Primary Impression: Chronic neck pain Disposition: 01 HOME, SELF-CARE Condition: Stable Departure-Patient Inst. Referrals: SURESH PATRICK DO (PCP/Family) Primary Care Physician Patient Instructions: Neck Pain Exercises Add. Discharge Instructions: You will need to see your primary care doctor if you require refill of pain medications as I am unwilling to do this from the emergency department today. I have given you a single hydrocodone, this may make you drowsy or cause constipation. Return to the emergency department for any severe concerns. Follow-up with your primary doctor for any nonemergent needs. All discharge instructions reviewed with patient and/or family. Voiced understanding. EMILY SERRA DO Nov 05, 2022 08:14
[2022-11-05] MEDS ORDERED: HYDROcodone/APAP 5 MG/325 MG (LORTAB) TAB PO ONE (08:15)
== END 2022-11-05 08:18 | disposition home or self-care (01) ==
LOC: EDUNIT# 08:00 → ER 08:01
DX: M54.2 Cervicalgia (principal); G89.29 Other chronic pain
CPT/HCPCS: 99283

== ENCOUNTER 2022-11-08 08:57 | Emergency (ER) | payer MEDICARE ==
[~2022-11-08] VITALS: Ht 167.7 cm; Wt 63.5 kg
--- NOTE | 2022-11-08 09:08 | ED General ---
General Stated Complaint: UNSPECIFIED ISSUES History of Present Illness Date Seen by Provider: Nov 08, 2022 Time Seen by Provider: 09:07 Initial Comments 82-year-old female brought in by granddaughter. Patient herself is very volatile and gets angry very easily. Granddaughter reported that they got into a fight this morning that they have been having a lot of issues recently. Patient initially reported because she had "leg pain. However patient has been seen here recently due to leg pain and neck pain twice now. Patient reports that she just wants pain medicine and does not want any further evaluation. Patient reports that she "just does not feel well. When I volunteered to do an evaluation and work-up including labs and urine she stated that she does not want labs or urine that she is fine. Patient eventually said that she is here because she is just having issues with her granddaughter and "drives her nuts" patient is very dismissive and very difficult to obtain much history from. Allergies and Home Medications Allergies Coded Allergies: No Known Drug Allergies (Unverified , 06/21/22) Patient Home Medication List Home Medication List Reviewed: Yes Acetaminophen (Tylenol Extra Strength) 500 Mg Tablet, 1,000 MG PO Q8H PRN for PAIN-MILD (1-4) Prescribed by: CODI MAE on 10/05/22928 Aspirin (Aspirin EC) 81 Mg Tablet.dr, 81 MG PO DAILY Prescribed by: CODI MAE on 10/05/22928 Atorvastatin Calcium (Atorvastatin Calcium) 80 Mg Tablet, 80 MG PO DAILY Prescribed by: CODI MAE on 10/05/22928 Carvedilol (Carvedilol) 3.125 Mg Tablet, 3.125 MG PO BID Prescribed by: CODI MAE on 10/05/22928 Empagliflozin (Jardiance) 10 Mg Tablet, 10 MG PO DAILY Prescribed by: CODI MAE on 10/05/22928 Enoxaparin Sodium (Enoxaparin Sodium) 40 Mg/0.4 Ml Syringe, 40 MG SC Q24H Prescribed by: CODI MAE on 10/05/22928 Furosemide (Furosemide) 20 Mg Tablet, 20 MG PO DAILY Prescribed by: CODI MAE on 10/05/22928 Lidocaine (Lidocaine 5% Patch) 5 % Adh..patch, 1 EACH TP DAILY Prescribed by: CODI MAE on 10/05/22928 Losartan Potassium (Losartan Potassium) 25 Mg Tablet, 25 MG PO DAILY Prescribed by: CODI MAE on 10/05/22928 Oxycodone Hcl (Oxyir Tablet) 5 Mg Tab, 5 MG PO Q4HR PRN for PAIN-SEE DOSE INSTRUCTIONS Prescribed by: CODI MAE on 10/05/22928 Potassium Chloride (K-Tab ER) 10 Meq Tablet.er, 10 MEQ PO DAILY Prescribed by: CODI MAE on 10/05/22928 Sennosides (Senna Lax) 8.6 Mg Tablet, 8.6 MG PO BID Prescribed by: CODI MAE on 10/05/22928 Ticagrelor (Brilinta) 90 Mg Tablet, 90 MG PO BID Prescribed by: CODI MAE on 10/05/22928 Tramadol HCl (Tramadol HCl) 50 Mg Tablet, 50 MG PO TID PRN for PAIN-MODERATE (5- 7) Prescribed by: CODI MAE on 10/05/22928 Review of Systems Review of Systems Constitutional: No chills, No fever Respiratory: no symptoms reported Cardiovascular: no symptoms reported Gastrointestinal: no symptoms reported Genitourinary: no symptoms reported Musculoskeletal: see HPI Skin: no symptoms reported Psychiatric/Neurological: See HPI Past Xuaasjx-Qdksld-Rlhrbj Hx Immunizations Up To Date First/Initial COVID19 Vaccinat: RECEIVED, UNK WHEN Second COVID19 Vaccination Jonathan: 2020 Third COVID19 Vaccination Date: 2020 Past Medical History Surgery/Hospitalization HX: CARDIAC STENT X 2 2020 Surgeries: Yes Cardiac, Coronary Stent Respiratory: Yes Pneumonia Cardiac: Yes (LBBB; CAD WITH STENTS; EF 30-35%; CHF; NSTEMI 04/20/22) Cardiomyopathy, Chronic Edema/Swelling, Coronary Artery Disease, Heart Attack, High Cholesterol, Hypertension Neurological: No Genitourinary: No Gastrointestinal: No Musculoskeletal: Yes (CHRONIC NECK PAIN ) Endocrine: No HEENT: No Cancer: No Psychosocial: Yes Anxiety, Depression Integumentary: No Blood Disorders: Yes (ANEMIA) Family Medical History No Pertinent Family Hx, Other Conditions/Hx Physical Exam Vital Signs Vital Signs - First Documented 11/08/22 09:05 Temp 36.8 Pulse 83 B/P (MAP) 100/53 (69) Pulse Ox 95 O2 Delivery Room Air Capillary Refill : Height, Weight, BMI Height: '" Weight: lbs. oz. kg; 23.00 BMI Method: General Appearance: No Apparent Distress, Other (Anger) Respiratory: Lungs Clear, Normal Breath Sounds Cardiovascular: Regular Rate, Rhythm, Normal Peripheral Pulses Extremity: Normal Capillary Refill, Normal Range of Motion Neurologic/Psychiatric: No Motor/Sensory Deficits, guest services lead II-XII Norm as Tested, Other (Patient very volatile, dismissive and easily angered) Skin: Normal Color, Warm/Dry Progress/Results/Core Measures Suspected Sepsis SIRS Temperature: Pulse: Respiratory Rate: Blood Pressure / Mean: Results/Orders My Orders Orders - RAMIREZ CHUA DO Ibuprofen Tablet (Motrin Tablet) (11/08/22 09:51) Vital Signs/I&O 11/08/22 11/08/22 09:05 10:11 Temp 36.8 Pulse 83 83 B/P (MAP) 100/53 (69) 83/51 Pulse Ox 95 95 O2 Delivery Room Air Room Air Capillary Refill : Progress Note : Progress Note Patient is refusing all testing. I believe patient is here just pain seeking based on her complaints along with reviewing her previous 2 notes. We did attempt to have patient see [facility] but they require labs which patient is unwilling to do. She is not suicidal homicidal. Granddaughter reports that she is her own guardian and granddaughter has no say in her care. Patient was told I am unwilling to provide her any pain medication. She is reporting she just wants to go home then. Patient is similar response to when she was told on her prior visit per note review that she was wanting chronic pain medicine refilled. She will need to follow-up with her primary care provider. Patient was stable and discharged home patient is at increased risk of morbidity and mortality based on her social determinants of health. Departure Impression Primary Impression: Chronic pain Qualified Codes: G89.29 - Other chronic pain Disposition: 01 HOME, SELF-CARE Condition: Stable Departure-Patient Inst. Referrals: SURESH PATRICK DO (PCP/Family) Primary Care Physician Add. Discharge Instructions: You will need to follow-up with your primary care provider for your chronic pain management and narcotic pain medications that you are seeking. These have many complications I am unwilling to prescribe this at the ER. RAMIREZ CHUA DO Nov 08, 2022 09:08
[2022-11-08] MEDS ORDERED: IBUPROFEN 800 MG (MOTRIN) TAB PO STA (09:51)
[2022-11-08 10:11] VITALS: BP 83/51
== END 2022-11-08 10:11 | disposition home or self-care (01) ==
LOC: EDUNIT# 08:57 → ER 08:59
DX: G89.29 Other chronic pain (principal); M54.2 Cervicalgia
CPT/HCPCS: 99283